=== PATIENT | female | born 1975 | race Caucasian/White ===

== ENCOUNTER 2016-10-03 06:15 | Emergency (ER) | payer BC, MEDICAID ==
[~2016-10-03] VITALS: Ht 152.4 cm; Wt 82.5 kg
[~2016-10-03 06:15] MED LIST: AMLO-147 PO; ATOR10TA65 PO; CARV6.2579 PO; ENAL10TA PO; FENO134C PO; HYDR-902 PO; METF-382 PO; OXYC-279 PO
[2016-10-03 06:25] VITALS: Ht 152.4 cm; Wt 82.5 kg
[2016-10-03] MEDS ORDERED: ALBU8.5H3 INH (06:53)
[2016-10-03] MEDS ORDERED: AZIT500T3 PO (06:53)
[2016-10-03] MEDS ORDERED: ACET500C5 PO (06:53)
--- NOTE | 2016-10-03 06:56 | ERD ---
ER Documentation Chief Complaint Date/Time DATE: 10/03/16 TIME: 06:55 Chief Complaint loss of voice and ear pain x1 wk, pink eye this morning HPI 40-year-old woman complains of bilateral earache, nasal congestion, rhinorrhea, cough 1 week. She has had no fevers or chills, no vomiting or diarrhea, no discharge from the ear, no hearing loss, no headache or neck pain. ROS All systems reviewed and are negative except as per history of present illness. Medications Home Meds Active Scripts Albuterol Sulfate* (Proair HFA*) 8.5 Gm Hfa.aer.ad, 2 PUFF INH Q6H Y for COUGH, #1 INHALER Prov:TERRELL RUFF MD 10/03/16 Acetaminophen* (Tylophen*) 500 Mg Capsule, 2 CAP PO Q8H Y for PAIN AND OR ELEVATED TEMP, #30 CAP Prov:TERRELL RUFF MD 10/03/16 Azithromycin* (Zithromax*) 500 Mg Tablet, 500 MG PO DAILY for 5 Days, TAB Prov:TERRELL RUFF MD 10/03/16 Hydrocodone/Acetaminophen ([place] 10-325 Tablet) 1 Each Tablet, 1 TAB PO Q6H Y for PAIN, #7 TAB Prov:SHANA MONTANEZ MD 07/27/16 Oxycodone HCl/Acetaminophen (Percocet 5-325 mg Tablet) 1 Each Tablet, 1 EACH PO TID for PAIN, #12 TAB Prov:TERRELL RUFF MD 04/27/16 Reported Medications Metformin Hcl* (Metformin Hcl*) 500 Mg Tablet, 500 MG PO WITH BREAKFAST DINNE, # 30 TAB 04/27/16 Fenofibrate, Micronized (Fenofibrate) 134 Mg Capsule, 134 MG PO DAILY, CAP 04/27/16 Atorvastatin Calcium (Atorvastatin Calcium) 10 Mg Tablet, 10 MG PO QHS, #30 TAB 04/27/16 Amlodipine Besylate* (Amlodipine Besylate*) 10 Mg Tablet, 10 MG PO DAILY, #30 TAB 04/27/16 Enalapril Maleate* (Enalapril Maleate*) 10 Mg Tablet, 10 MG PO DAILY, TAB 04/27/16 Carvedilol* (Carvedilol*) 6.25 Mg Tablet, 6.25 MG PO BID, #60 TAB 04/27/16 Allergies Allergies: Coded Allergies: Penicillins (Verified Allergy, Unknown, 04/27/16) ampicillin (Verified Allergy, Unknown, rash, 04/27/16) ibuprofen (Verified Allergy, Unknown, 04/27/16) Uncoded Allergies: FISH (Allergy, Unknown, 02/16/16) PMhx/Soc Hypertension History of Surgery: No Anesthesia Reaction: No Hx Neurological Disorder: No Hx Respiratory Disorders: No Hx Cardiac Disorders: Yes (HTN) Hx Psychiatric Problems: No Hx Miscellaneous Medical Probl: Yes (DM) Hx Alcohol Use: No Hx Substance Use: No Hx Tobacco Use: No Smoking Status: Never smoker FmHx Family History: No diabetes Physical Exam Vitals Vital Signs Date Time Temp Pulse Resp B/P Pulse Ox O2 Delivery O2 Flow Rate FiO2 10/03/16 06:25 97.8 104 19 199/121 100 Physical Exam GENERAL: Well-developed, well-nourished, well-hydrated, in no apparent distress , looks nontoxic in appearance HEENT: Moist mucous membranes, positive nasal congestion, pink conjunctiva, no cervical spine tenderness or step-off deformities, no goiter, no jaundice or icterus, extraocular movements intact without pain. No submandibular induration , and no pharyngeal erythema NEURO: Alert and oriented 3, cranial nerves II through XII intact bilaterally, pupils equal round reactive to light, no focal deficits or facial asymmetry, sensation intact distally Strength 5/5 in upper and lower extremities bilaterally CARDIAC: Regular rate and rhythm, no murmurs rubs or gallops LUNGS: Clear bilaterally no wheezing crackles or stridor ABDOMEN: Soft nontender, no guarding, no rigidity, no rebound, no psoas sign no obturator sign. Normoactive bowel sounds SKIN: Warm and dry to touch, no abrasions, contusions, or hematomas, no lacerations, no ecchymosis, no target lesions, and without ulcers EXTREMITIES: No clubbing cyanosis or edema, calves are bilaterally symmetrical, no Homans sign, no popliteal cord sign. Distal pulses equal and bilateral PSYCH: Normal affect without agitation or irritability Results 24 hrs Current Medications Medications (Trade) Dose Ordered Sig/Thuan Route PRN Reason Start Time Stop Time Status Last Admin Dose Admin Clonidine (Catapres) 0.1 mg ONCE ONCE PO 10/03/16 07:00 10/03/16 07:01 DC 10/03/16 06:57 Acetaminophen (Tylenol Tab) 650 mg ONCE ONCE PO 10/03/16 07:00 10/03/16 07:01 DC 10/03/16 06:57 Procedures/MDM I administered clonidine 0.1 mg p.o. for hypertension as well as Tylenol 650 mg p.o. for her symptoms. Differential diagnoses considered, included but not limited to acute coronary syndrome, pulmonary embolism, aortic dissection, abdominal aortic aneurysm, sepsis, stroke, meningitis, encephalitis, pneumonia, appendicitis, cholecystitis , bowel obstruction, pyelonephritis, nephrolithiasis, cystitis, as well as metabolic, hematologic, and electrolyte abnormalities. As well as abscess, cellulitis, fractures, and dislocations. Patient feels much better at this time, and vital signs are normal, symptoms have improved. I did give strict instructions to return to the ED if symptoms continue or worsen, patient will otherwise follow-up with primary care physician. Patient understood instructions and agreed to plan. Departure Diagnosis: Primary Impression: Bronchitis Condition: Good Patient Instructions: Bronchitis, Antiobiotic Treatment (Adult) TERRELL RUFF MD Oct 03, 2016 06:56
[2016-10-03] MEDS ORDERED: ACETAMINOPHEN 325 MG TAB PO ONE (07:00)
== END 2016-10-03 07:29 | disposition home or self-care (01) ==
LOC: E/R 06:15
DX: J20.9 Acute bronchitis, unspecified (principal); E11.9 Type 2 diabetes mellitus without complications; I10 Essential (primary) hypertension; Z79.84 Long term (current) use of oral hypoglycemic drugs
CPT/HCPCS: Z7502; Z7610; 99283

== ENCOUNTER 2017-02-26 23:43 | Emergency (ER) | payer OTHER, MEDICAID ==
[~2017-02-26] VITALS: Ht 154.9 cm; Wt 82.0 kg
[~2017-02-26 23:43] MED LIST changes: +ACET500C5 PO; +ALBU8.5H3 INH; +AZIT500T3 PO; -METF-382 PO; +METF500T4 PO
[2017-02-26 23:51] VITALS: Ht 154.9 cm; Wt 82.0 kg
[2017-02-27] MEDS ORDERED: morphine 4 MG/ML VIAL IV STA (00:13)
[2017-02-27] MEDS ORDERED: SOD CHLORIDE 0.9% 1,000 ML IV STA ×2 (00:13→02:32)
[2017-02-27] MEDS ORDERED: ONDANSETRON 4 MG INJ IV STA ×2 (00:13→02:32)
[2017-02-27 00:38] LABS: URINE BLOOD (Dip) POC Trace-intact (NEGATIVE)
[2017-02-27 00:51] LABS: ABNORMAL IP MESSAGE 1; BASOPHIL # 0.1 10^3/ul (0.0-0.1); BASOPHILS % 0.7 % (0.0-2.0); EOSINOPHILS # 0.1 10^3/ul (0.0-0.5); EOSINOPHILS % 1.2 % (0.0-7.0); HEMATOCRIT 43.2 % (37.0-47.0); HEMOGLOBIN 14.9 g/dl (12.0-16.0); LYMPHOCYTES # 5.3 10^3/ul (0.8-2.9); LYMPHOCYTES % 44.4 % (15.0-51.0); MEAN CORPUSCULAR HEMOGLOBIN 33.2 pg (29.0-33.0); MEAN CORPUSCULAR HGB CONC 34.5 g/dl (32.0-37.0); MEAN CORPUSCULAR VOLUME 96.2 fl (82.0-101.0); MEAN PLATELET VOLUME 9.7 fl (7.4-10.4); MONOCYTE # 0.8 10^3/ul (0.3-0.9); MONOCYTES % 6.4 % (0.0-11.0); NEUTROPHIL # 5.6 10^3/ul (1.6-7.5); NEUTROPHILS % 46.9 % (39.0-77.0); PLATELET COUNT 401 10^3/UL (140-415); RED BLOOD COUNT 4.49 10^6/ul (4.20-5.40); RED CELL DISTRIBUTION WIDTH 12.3 % (11.5-14.5); WHITE BLOOD COUNT 11.9 10^3/ul (4.8-10.8)
[2017-02-27 00:55] LABS: POSITIVE DIFF @See below
[2017-02-27 01:01] LABS: ADD UMIC YES; UR ASCORBIC ACID NEGATIVE (NEGATIVE); UR BACTERIA FEW /HPF (NONE SEEN); UR BILIRUBIN (Dip) NEGATIVE (NEGATIVE); UR BLOOD (Dip) NEGATIVE (NEGATIVE); UR CLARITY CLOUDY (CLEAR); UR COLOR YELLOW (YELLOW); UR GLUCOSE (Dip) 3+ mg/dL (NEGATIVE); UR KETONES (Dip) NEGATIVE (NEGATIVE); UR LEUKOCYTE ESTERASE (Dip) 3+ Leu/ul (NEGATIVE); UR NITRITE (Dip) NEGATIVE (NEGATIVE); UR NONSQUAMOUS EPITHELIAL CELL 1 /HPF (NONE SEEN); UR RBC 17 /HPF (0-5); UR SPECIFIC GRAVITY (Dip) 1.032 (1.003-1.030); UR SQUAMOUS EPITHELIAL CELL MANY /HPF (FEW); UR TOTAL PROTEIN (Dip) 2+ mg/dl (NEGATIVE); UR UROBILINOGEN (Dip) NEGATIVE (NEGATIVE)
[2017-02-27 01:18] LABS: ALBUMIN 4.9 g/dl (3.3-4.9); ALBUMIN/GLOBULIN RATIO 1.11; BILIRUBIN,INDIRECT 0.1 mg/dl (0-1.1); BILIRUBIN,TOTAL 0.1 mg/dl (0.2-1.3); CREATININE 0.57 mg/dl (0.44-1.00); POTASSIUM 4.3 mmol/L (3.5-5.1); TOTAL PROTEIN 9.3 g/dl (6.1-8.1)
--- NOTE | 2017-02-27 02:15 | RADRPT ---
PROCEDURE: US Abdomen. CLINICAL INDICATION: Abdominal Pain TECHNIQUE: Blank scale and color Doppler imaging of the right upper quadrant COMPARISON: None FINDINGS: The aorta and visualized inferior vena cava are unremarkable in appearance. The liver is enlarged, measuring 22.8 cm in length. The liver is diffusely echogenic suggesting hepatic steatosis. Hepatope nghia flow is seen in the main portal vein. A nonmobile 8 mm stone is seen in the neck of the gallblad jairo. No gallbladder wall thickening is seen but the kindergartners helper a positive sonographic Horton's sig n. No pericholecystic fluid was seen. No intra or extrahepatic ductal dilatation is seen. The comm on bile duct measures 2 mm in maximal dimension. The right kidney measures 13 cm. No hydronephrosis or renal calculi are seen. The pancreas is largely obscured by bowel gas.. No ascites is seen. IMPRESSION: Study is significantly limited by bowel gas and body habitus. Probable impacted stone in the neck of the gallbladder with positive Horton's sign. No definite gallbladder wall thickening, pericholecys tic fluid, or ductal dilatation. HIDA scan may be helpful to confirm acute cholecystitis. Hepatic steatosis. RPTAT: [facility] Physician Derek Date Time Electronically viewed and signed by Physician Derek on 02/27/2017 02:15 RAHAT/
[2017-02-27] MEDS ORDERED: HYDROmorphONE 1 MG/ML SYG IV STA (02:32)
--- NOTE | 2017-02-27 02:51 | ERD ---
ER Documentation Chief Complaint Date/Time DATE: 02/27/17 TIME: 02:46 Chief Complaint abdominal pain/vomiting x 1 day HPI This patient is a 41-year-old female who presents with abdominal pain with nausea and vomiting that began yesterday. She denies fever. She states the pain is worse after eating. She denies any dysuria, hematuria, or urinary frequency. Pain is 10 out of 10. She states she is currently on her menstrual period now. ROS All systems reviewed and are negative except as per history of present illness. Medications Home Meds Active Scripts Ondansetron (Ondansetron Odt) 4 Mg Tab.rapdis, 4 MG PO Q6H Y for NAUSEA AND/OR VOMITING, #20 TAB Prov:EMILIA URIOSTEGUI PA-C 02/27/17 Hydrocodone/Acetaminophen ([place] 10-325 Tablet) 1 Each Tablet, 1 TAB PO Q6H Y for PAIN, #20 TAB Prov:EMILIA URIOSTEGUI PA-C 02/27/17 Nitrofurantoin Monohyd Macrocr* (Macrobid*) 100 Mg Capsr, 100 MG PO BID for 7 Days, CAP Prov:EMILIA URIOSTEGUI PA-C 02/27/17 Albuterol Sulfate* (Proair HFA*) 8.5 Gm Hfa.aer.ad, 2 PUFF INH Q6H Y for COUGH, #1 INHALER Prov:TERRELL RUFF MD 10/03/16 Acetaminophen* (Tylophen*) 500 Mg Capsule, 2 CAP PO Q8H Y for PAIN AND OR ELEVATED TEMP, #30 CAP Prov:TERRELL RUFF MD 10/03/16 Azithromycin* (Zithromax*) 500 Mg Tablet, 500 MG PO DAILY for 5 Days, TAB Prov:TERRELL RUFF MD 10/03/16 Hydrocodone/Acetaminophen ([place] 10-325 Tablet) 1 Each Tablet, 1 TAB PO Q6H Y for PAIN, #7 TAB Prov:SHANA MONTANEZ MD 07/27/16 Oxycodone HCl/Acetaminophen (Percocet 5-325 mg Tablet) 1 Each Tablet, 1 EACH PO TID for PAIN, #12 TAB Prov:TERRELL RUFF MD 04/27/16 Reported Medications Metformin Hcl* (Metformin Hcl*) 500 Mg Tablet, 500 MG PO WITH BREAKFAST DINNE, # 30 TAB 04/27/16 Fenofibrate, Micronized (Fenofibrate) 134 Mg Capsule, 134 MG PO DAILY, CAP 04/27/16 Atorvastatin Calcium (Atorvastatin Calcium) 10 Mg Tablet, 10 MG PO QHS, #30 TAB 04/27/16 Amlodipine Besylate* (Amlodipine Besylate*) 10 Mg Tablet, 10 MG PO DAILY, #30 TAB 04/27/16 Enalapril Maleate* (Enalapril Maleate*) 10 Mg Tablet, 10 MG PO DAILY, TAB 04/27/16 Carvedilol* (Carvedilol*) 6.25 Mg Tablet, 6.25 MG PO BID, #60 TAB 04/27/16 Allergies Allergies: Coded Allergies: Penicillins (Verified Allergy, Unknown, 04/27/16) ampicillin (Verified Allergy, Unknown, rash, 04/27/16) ibuprofen (Verified Allergy, Unknown, 04/27/16) Uncoded Allergies: FISH (Allergy, Unknown, 02/16/16) PMhx/Soc History of Surgery: No Anesthesia Reaction: No Hx Neurological Disorder: No Hx Respiratory Disorders: No Hx Cardiac Disorders: Yes (HTN) Hx Psychiatric Problems: No Hx Miscellaneous Medical Probl: Yes (DM) Hx Alcohol Use: No Hx Substance Use: No Hx Tobacco Use: No Smoking Status: Never smoker FmHx Family History: diabetes Physical Exam Vitals Vital Signs Date Time Temp Pulse Resp B/P Pulse Ox O2 Delivery O2 Flow Rate FiO2 02/26/17 23:51 98.2 108 20 175/100 99 Physical Exam INITIAL VITAL SIGNS: Reviewed by me GENERAL: Awake, alert and oriented x 4, well appearing, nontoxic, speaking in full sentences. HEAD: Atraumatic NECK: Supple. No masses. Full range of motion. No meningismus. No midline tenderness. RESPIRATORY: Clear to auscultation bilaterally. Symmetric chest wall rise. No wheezing or rales. No accessory muscle use. CV: Regular rate and rhythm. No murmurs, rubs, or gallops. Equal pulses x 4. ABDOMEN: Soft, . Nontender. Positive [place]. Negative McBurneys point tenderness. No CVA tenderness bilaterally. No guarding. No rebound. EXTREMITIES: No clubbing or cyanosis. No edema. BACK: No midline tenderness to palpation. No step-offs. NEUROLOGIC: Normal mental status and speech. Face is symmetric. Moves all extremities equally. Motor and sensory distally intact. Normal coordination. Ambulates with a strong steady gait. Result Diagram: 02/27/17 0030 02/27/17 0030 Results 24 hrs Laboratory Tests Test 02/27/17 00:25 02/27/17 00:30 02/27/17 00:44 Urine Color YELLOW Urine Clarity CLOUDY Urine pH 7.0 Urine Specific [place] 1.032 Urine Ketones NEGATIVEmg/dL Urine Nitrite NEGATIVEmg/dL Urine Bilirubin NEGATIVEmg/dL Urine Urobilinogen NEGATIVEmg/dL Urine Leukocyte Esterase 3+Yesi/ul Urine Microscopic RBC 17/HPF Urine Microscopic WBC > 182/HPF Urine Squamous Epithelial Cells MANY/HPF Urine Bacteria FEW/HPF Urine Hemoglobin NEGATIVEmg/dL Urine Glucose 3+mg/dL Urine Total Protein 2+mg/dl White Blood Count 11.910^3/ul Red Blood Count 4.4910^6/ul Hemoglobin 14.9g/dl Hematocrit 43.2% Mean Corpuscular Volume 96.2fl Mean Corpuscular Hemoglobin 33.2pg Mean Corpuscular Hemoglobin Concent 34.5g/dl Red Cell Distribution Width 12.3% Platelet Count 11860^3/UL Mean Platelet Volume 9.7fl Neutrophils % 46.9% Lymphocytes % 44.4% Monocytes % 6.4% Eosinophils % 1.2% Basophils % 0.7% Nucleated Red Blood Cells % 0.0/100WBC Neutrophils # 5.610^3/ul Lymphocytes # 5.310^3/ul Monocytes # 0.810^3/ul Eosinophils # 0.110^3/ul Basophils # 0.110^3/ul Nucleated Red Blood Cells # 0.010^3/ul Sodium Level 143mmol/L Potassium Level 4.3mmol/L Chloride Level 100mmol/L Carbon Dioxide Level 24mmol/L Anion Gap 23 Blood Urea Nitrogen 10mg/dl Creatinine 0.57mg/dl Glucose Level 356mg/dl Calcium Level 10.0mg/dl Total Bilirubin 0.1mg/dl Direct Bilirubin 0.00mg/dl Indirect Bilirubin 0.1mg/dl Aspartate Amino Transf (AST/SGOT) 33IU/L Alanine Aminotransferase (ALT/SGPT) 43IU/L Alkaline Phosphatase 69IU/L Total Protein 9.3g/dl Albumin 4.9g/dl Globulin 4.40g/dl Albumin/Globulin Ratio 1.11 Lipase 360U/L Bedside Urine pH (LAB) 7.0 Bedside Urine Protein (LAB) 2+ Bedside Urine Glucose (UA) 0.50% Bedside Urine Ketones (LAB) Negative Bedside Urine Blood Trace-intact Bedside Urine Nitrite (LAB) Negative Bedside Urine Leukocyte Esterase (L 1+ Current Medications Medications (Trade) Dose Ordered Sig/Thuan Route PRN Reason Start Time Stop Time Status Last Admin Dose Admin Sodium Chloride (NS) 1,000 ml @ 1,000 mls/hr Q1H STAT IV 02/27/17 00:13 02/27/17 01:12 DC 02/27/17 00:50 Morphine Sulfate (morphine) 4 mg ONCE STAT IV 02/27/17 00:13 02/27/17 00:15 DC 02/27/17 00:49 Ondansetron HCl 4 mg 4 mg ONCE STAT IV 02/27/17 00:13 02/27/17 00:15 DC 02/27/17 00:49 Sodium Chloride (NS) 1,000 ml @ 1,000 mls/hr Q1H STAT IV 02/27/17 02:32 02/27/17 03:31 DC 02/27/17 02:39 Hydromorphone HCl (Dilaudid) 1 mg ONCE STAT IV 02/27/17 02:32 02/27/17 02:33 DC 02/27/17 02:40 Ondansetron HCl (Zofran Inj) 4 mg ONCE STAT IV 02/27/17 02:32 02/27/17 02:33 DC 02/27/17 02:39 IV Flush 10 ml 10 ml STK-MED ONCE .ROUTE 02/27/17 03:06 02/27/17 03:07 DC 02/27/17 03:27 Sodium Chloride (NS) 100 ml @ ud STK-MED ONCE .ROUTE 02/27/17 03:06 02/27/17 03:07 DC 02/27/17 03:27 Iohexol (Omnipaque 300mg/ ml) 150 ml STK-MED ONCE .ROUTE 02/27/17 03:06 02/27/17 03:07 DC 02/27/17 03:27 Procedures/MDM Patient presents with abdominal pain. Patient's blood pressure was elevated (> 120/80) but appears stable without evidence of hypertension emergency. The patient was counseled about the risks of hypertension and urged to pursue outpatient monitoring and therapy within a week with their primary care physician.Her blood pressure is elevated 175/100 and she is tachycardic at 108. She is afebrile. The differential diagnosis includes but is not limited to appendicitis, cholelithiasis, cholecystitis, pancreatitis, hepatitis, gastritis , peptic ulcer disease, bowel obstruction, diverticulitis, renal disease including stones, AAA, pyelonephritis, and others. Her labs have an elevated white blood cell count of 11.9. Glucose is elevated greater than 350 without any evidence of DKA. Gallbladder ultrasound showsStudy is significantly limited by bowel gas and body habitus. Probable impacted stone in the neck of the gallbladder with positive Horton's sign. No definite gallbladder wall thickening, pericholecystic fluid, or ductal dilatation. HIDA scan may be helpful to confirm acute cholecystitis. I reviewed this finding with Dr. ward who recommended I perform a CT scan of the abdomen and pelvis with IV contrast. CT scan showsNo definite acute abnormality. Enlarged liver with diffuse hepatic steatosis. 7 mm hyperdense lesion in the posterior segment right lobe of the liver. This could represent an area of focal fatty sparing or a hemangioma. Follow-up MRI with contrast in 3 months is suggested. This was reviewed with who explained patient is suitable for outpatient management. Patient was given prescription for pain medication, Zofran, and Macrobid for her urinary tract infection. She is also given copies of all her labs and radiology reports she can follow primary care. Patient counseled regarding my diagnostic impression and care plan. Prior to discharge all questions answered. Pt agrees with treatment plan and understands strict return precautions. Pt is instructed to follow up with primary care provider within 24- 48 hours. Precautionary instructions provided including instructions to return to the ER if not improving or for any worsening or changing symptoms or concerns. Departure Diagnosis: Primary Impression: Cystitis Additional Impressions: Biliary colic Hypertensive urgency Condition: Stable Patient Instructions: Possible Miscarriage (Threatened ) Additional Instructions: Llame al doctor MAANA y russel marquis KAUSHIK PARA DENTRO DE 2-3 HANSEN.Dgale a la secretaria que nosotros le instruimos hacer esta kaushik.Avise o llame si albright condicin se empeora antes de la kauhsik. Regresa aqui si peor o no mejor. EMILIA URIOSTEGUI PA-C Feb 27, 2017 02:51
[2017-02-27] MEDS ORDERED: SOD CHLORIDE 0.9% 100 ML ONE (03:06)
[2017-02-27] MEDS ORDERED: IOHEXOL 300MG/ML 150 ML BTL ONE (03:06)
--- NOTE | 2017-02-27 03:44 | RADRPT ---
PROCEDURE: CT Abdomen and pelvis with contrast CLINICAL INDICATION: Abdominal pain TECHNIQUE: Spiral CT images through the abdomen and pelvis without administration of oral and duri ng administration of 100 cc of Omnipaque-300 contrast material. Multiplanar reconstructions. The t otal exam CTDI equals 20.16 mGy and the total exam DLP equals 1253.6 mGy-cm. One or more of the foll owing dose reduction techniques were used: automated exposure control, adjustment of the mA and/or k V according to patient size, or use of iterative reconstruction technique. COMPARISON: None. FINDINGS: Slight atelectasis of the lung bases is seen. No pleural effusion is seen. . The aorta is normal in caliber. The liver is significantly enlarged, measuring 24 cm in length. The liver is mildly diffusely low i n attenuation consistent with hepatic steatosis. There is probable focal fatty sparing adjacent to the gallbladder. There is a 7 mm hyperdense lesion in the posterior segment of the right lobe of the liver (axial image 32). No other focal lesions are seen. . The spleen, adrenals, kidneys, and cast creas are unremarkable in appearance. No adenopathy or ascites is seen. There is no evidence for albert wel obstruction, free air, or abscess. The appendix is not identified but no pericecal inflammatory process is seen. The bladder, uterus, and adnexal regions are unremarkable in appearance. No bony abnormality is seen. IMPRESSION: No definite acute abnormality. Enlarged liver with diffuse hepatic steatosis. 7 mm hyperdense lesi on in the posterior segment right lobe of the liver. This could represent an area of focal fatty sp aring or a hemangioma. Follow-up MRI with contrast in 3 months is suggested. RPTAT: [facility] Physician Derek Date Time Electronically viewed and signed by Physician Derek on 02/27/2017 03:43 RAHAT/
[2017-02-27] MEDS ORDERED: ONDA4TAB14 PO (03:51)
[2017-02-27] MEDS ORDERED: NITR-58 PO (03:51)
[2017-02-27] MEDS ORDERED: HYDR-902 PO (03:51)
[2017-02-27 04:00] VITALS: BP 178/100; PULSE 98; RESP 20; TEMP 98.2
[2017-02-27 16:09] LABS: URINE BLOOD (Dip) POC Trace-intact (NEGATIVE)
== END 2017-02-27 04:05 | disposition home or self-care (01) ==
LOC: FTE 23:43
DX: N30.90 Cystitis, unspecified without hematuria (principal); K80.50 Calculus of bile duct without cholangitis or cholecystitis without obstruction; I16.0 Hypertensive urgency; I10 Essential (primary) hypertension; E11.9 Type 2 diabetes mellitus without complications; R11.2 Nausea with vomiting, unspecified
CPT/HCPCS: 36415; 74177; 76705; 80053; 81001; 83690; 85025; 96361; 96374; 96375; 96376; J1170; J2270; J2405; J7030; Q9967; Z7502; Z7610; 81003

== ENCOUNTER 2017-04-05 13:40 | Emergency (ER) | payer MEDICAID, OTHER ==
[~2017-04-05] VITALS: Ht 154.9 cm; Wt 83.0 kg
[~2017-04-05 13:40] MED LIST changes: +NITR-58 PO; +ONDA4TAB14 PO
[2017-04-05 13:48] VITALS: Ht 154.9 cm; Wt 83.0 kg
[2017-04-05] MEDS ORDERED: HYDROCODONE/APAP (5/325) TAB PO ONE (15:00)
--- NOTE | 2017-04-05 15:04 | ERD ---
ER Documentation Chief Complaint Date/Time DATE: 04/05/17 TIME: 14:59 Chief Complaint MOTHER A COUPLE OF DAYS AGO.FEELS DIZZY AND STRESSED HPI This a 41-year-old female who presents to the emergency department today with her for complaints of headache and heart palpitations for the past couple of days. States she has not slept for the past couple days. 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 States she has tried Tylenol and Motrin for her headache with no improvement in symptoms. States she is concerned because her blood pressure will not go down. Had some nausea but no vomiting. Denies any nausea currently. Denies any dizziness, blurred vision. ROS All systems reviewed and are negative except as per history of present illness. Medications Home Meds Active Scripts Ondansetron Hcl* (Zofran*) 4 Mg Tablet, 4 MG PO Q6H for NAUSEA AND/OR VOMITING, #30 TAB Prov:AICHA NELSON PA-C 04/05/17 Lorazepam* (Ativan*) 0.5 Mg Tablet, 0.5 MG PO Q8, #10 TAB Prov:AICHA NELSON PA-C 04/05/17 Hydrocodone/Acetaminophen ([place] 5-325 Tablet) 1 Each Tablet, 1 TAB PO Q6H Y for PAIN, #10 TAB Prov:AICHA NELSON PA-C 04/05/17 Ondansetron (Ondansetron Odt) 4 Mg Tab.rapdis, 4 MG PO Q6H Y for NAUSEA AND/OR VOMITING, #20 TAB Prov:EMILIA URIOSTEGUI PA-C 02/27/17 Hydrocodone/Acetaminophen ([place] 10-325 Tablet) 1 Each Tablet, 1 TAB PO Q6H Y for PAIN, #20 TAB Prov:EMILIA URIOSTEGUI PA-C 02/27/17 Nitrofurantoin Monohyd Macrocr* (Macrobid*) 100 Mg Capsr, 100 MG PO BID for 7 Days, CAP Prov:EMILIA URIOSTEGUI PA-C 02/27/17 Albuterol Sulfate* (Proair HFA*) 8.5 Gm Hfa.aer.ad, 2 PUFF INH Q6H Y for COUGH, #1 INHALER Prov:TERRELL RUFF MD 10/03/16 Acetaminophen* (Tylophen*) 500 Mg Capsule, 2 CAP PO Q8H Y for PAIN AND OR ELEVATED TEMP, #30 CAP Prov:TERRELL RUFF MD 10/03/16 Azithromycin* (Zithromax*) 500 Mg Tablet, 500 MG PO DAILY for 5 Days, TAB Prov:TERRELL RUFF MD 10/03/16 Hydrocodone/Acetaminophen ([place] 10-325 Tablet) 1 Each Tablet, 1 TAB PO Q6H Y for PAIN, #7 TAB Prov:SHANA MONTANEZ MD 07/27/16 Oxycodone HCl/Acetaminophen (Percocet 5-325 mg Tablet) 1 Each Tablet, 1 EACH PO TID for PAIN, #12 TAB Prov:TERRELL RUFF MD 04/27/16 Reported Medications Metformin Hcl* (Metformin Hcl*) 500 Mg Tablet, 500 MG PO WITH BREAKFAST DINNE, # 30 TAB 04/27/16 Fenofibrate, Micronized (Fenofibrate) 134 Mg Capsule, 134 MG PO DAILY, CAP 04/27/16 Atorvastatin Calcium (Atorvastatin Calcium) 10 Mg Tablet, 10 MG PO QHS, #30 TAB 04/27/16 Amlodipine Besylate* (Amlodipine Besylate*) 10 Mg Tablet, 10 MG PO DAILY, #30 TAB 04/27/16 Enalapril Maleate* (Enalapril Maleate*) 10 Mg Tablet, 10 MG PO DAILY, TAB 04/27/16 Carvedilol* (Carvedilol*) 6.25 Mg Tablet, 6.25 MG PO BID, #60 TAB 04/27/16 Allergies Allergies: Coded Allergies: Penicillins (Verified Allergy, Unknown, 04/27/16) ampicillin (Verified Allergy, Unknown, rash, 04/27/16) ibuprofen (Verified Allergy, Unknown, 04/27/16) Uncoded Allergies: FISH (Allergy, Unknown, 02/16/16) PMhx/Soc History of Surgery: No Anesthesia Reaction: No Hx Neurological Disorder: No Hx Respiratory Disorders: No Hx Cardiac Disorders: Yes (HTN) Hx Psychiatric Problems: No Hx Miscellaneous Medical Probl: Yes (DM) Hx Alcohol Use: No Hx Substance Use: No Hx Tobacco Use: No Smoking Status: Never smoker Physical Exam Vitals Vital Signs Date Time Temp Pulse Resp B/P Pulse Ox O2 Delivery O2 Flow Rate FiO2 04/05/17 15:56 98.9 99 18 167/112 100 Room Air 04/05/17 13:48 98.3 103 18 178/112 98 Physical Exam Const: tearful Head: Atraumatic Eyes: Normal Conjunctiva. PERRLA, EOM intact ENT: Normal External Ears, Nose and Mouth. Neck: Full range of motion..~ No meningismus. Resp: Clear to auscultation bilaterally Cardio: Regular rate and rhythm, no murmurs Abd: Soft, non tender, non distended. Normal bowel sounds Skin: No petechiae or rashes Back: No midline or flank tenderness Ext: No cyanosis, or edema Neur: Awake and alert cranial nerves II through XII intact. No gait ataxia. Psych: Normal Mood and Affect Results 24 hrs Current Medications Medications (Trade) Dose Ordered Sig/Thuan Route PRN Reason Start Time Stop Time Status Last Admin Dose Admin Acetaminophen/ Hydrocodone Bitart ([place] (5/325)) 1 tab ONCE ONCE PO 04/05/17 15:00 04/05/17 15:01 DC 04/05/17 15:01 Nicardipine HCl (Cardene) 30 mg ONCE ONCE PO 04/05/17 16:00 04/05/17 16:01 DC 04/05/17 16:18 Procedures/MDM This is a 41-year-old female presents emergency department today complaining of headache and heart palpitations for the past couple of days and inability to sleep. 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 He was complaining of a headache and elevated blood pressure. Her blood pressure was elevated at 178/112 here in the emergency department. Given Patient's complaints of adhesions I did obtain an EKG. Read and interpreted by Dr. Bowman. Rate [address] elevation. No QT prolongation. Sinus tachycardia. Low suspicion for acute [place], PE, pericarditis. Patient was given [place] for her headache. Blood pressure was rechecked and was 167/112. Patient was given p.o. Cardene here Patient reported feeling better after the [place] blood pressure medications. I do have low suspicion for end organ damage, hypertensive emergency.Patient describes the headache as a frontal headache and have low suspicion for acute hemorrhage, mass, abscess, meningitis. Do not feel she requires a head CT scan at this time. Blood pressure was rechecked and patient's blood pressure 155/104. Patient reported feeling better. Patient symptoms at this time is consistent with headache, elevated blood pressure and heart palpitations likely related to anxiety related symptoms secondary to the loss of her mother within the past week. Patient is given a prescription for short course of [place], Ativan and Zofran. Discussed the patient with Dr. Bowman and he is in agreement with the plan. Departure Diagnosis: Primary Impression: Headache Headache type: unspecified Headache chronicity pattern: episodic headache Intractability: not intractable Qualified Code: R51 - Nonintractable episodic headache, unspecified headache type Additional Impression: Palpitations Condition: AICHA Preston PA-C Apr 05, 2017 15:04
[2017-04-05] MEDS ORDERED: NICARDipine HCL 30 MG CAPSULE PO ONE (16:00)
[2017-04-05] MEDS ORDERED: HYDR-906 PO (17:14)
[2017-04-05] MEDS ORDERED: LORA-441 PO (17:15)
[2017-04-05] MEDS ORDERED: ONDA4TAB8 PO (17:17)
[2017-04-05 17:21] VITALS: BP 155/104; PULSE 96; RESP 18; TEMP 98.5
[2017-04-07] MEDS ORDERED: morphine 2 MG INJ IV PRN ×2 (14:00)
--- NOTE | 2017-04-07 14:27 | HP ---
Date/Time of Note Date/Time of Note DATE: 04/07/17 TIME: 13:53 Assessment/Plan VTE Prophylaxis VTE Prophylaxis Intervention: heparin Lines/Catheters IV Catheter Type (from Nrsg): Peripheral IV Central line still needed: No Urinary Cath still in place: No Assessment/Plan Assessment/Plan 41 yo F admitted for chest pain and hyperglycemia 1. Atypical chest pain r/o ACS - EKG does not show any acute changes. will repeat in the am - Will trend troponins, negative x1. if trends up will consult Cardiology - ECHO ordered - Doubt cardiac cause due to increase in stress secondary to loss of mother and health of family members - Mother was 62 when she from heart failure 2. Hyperosmolar hyperglycemia - Glucose at time of presentation was 446 - will start IV NSS 100cc/hr - will give novolog 10 units now and start accuchekcs and sliding scale with meals - Hold home dose of metformin at this time - A1c ordered. Pt unsure if drawn in the past - Consult to community nutrition educator at patients request - Will check UA for protein or ketones 3. Hypertension - restarted home medications and will increase dose of enalapril to 20mg - Will continue adjusting to keep SBP <140 4. pseudohyponatremia - secondary to hyperglycemia. Corrected for glucose- 139 5. DVT prophylaxis - Heparin 6. Diet - Carb controlled diet 7. Code Status - Full Code I spent >30 minutes with the patient discussing plan of care and answering all questions and concerns. HPI/ROS Admit Date/Time Admit Date/Time Apr at 1353 Hx of Present Illness 41 yo F with PMH of DM type 2 and HTN presented to ED after experiencing chest pain since this am. was at bedside. Patient states the pain has been persistent since this am, sharp in nature, located in sternal radiating to left side, 10/10 this am but 8/10 currently after pain medication given in the ED. Nothing makes it worse. Occurred at rest with associated nausea but denies any vomiting or shortness of breath. Does admit to a severe headache that began this am as well. Patient states she took all her antihypertensives this am. She has never experienced these symptoms in the past. Patient's mother 20 days ago from heart failure and father and both currently have cancer. Patient denies any anxiety but admits to stress. Troponin was negative x1. Patient denies any other family members with heart conditions. Patient admits to taking all her BP medications this am but SBP has been persistently in the 150s. Patient was also found to have a blood sugar in the 400s. States sugars are usually well controlled in the 100s without levels > 200. She took her medication this morning but was not feeling well and when she checked her glucose, was in the 400s. She denies polyuria, polydipsia, urinary symptoms, constipation, but has been experiencing diminished appetite. ROS ROS as per HPI. All other systems reviewed an are negative. Constitutional: fatigue, nausea, poor po, No febrile Eyes: no complaints ENT: No congestion, No discharge Respiratory: No cough, No shortness of breath, No sputum Cardiovascular: chest pain, lightheadedness, No palpitations Gastrointestinal: decreased appetite, nausea, No constipation, No diarrhea, No vomiting Genitourinary: no complaints Musculoskeletal: No bone/joint pain Skin: No bruising, No erythema, No skin lesions Neurologic: dizziness, headache, No focal-weakness, No syncope Endocrine: No polydypsia, No polyuria Lymphatic: no complaints Psychological: No anxiety, No confusion, No depression Immunologic: no complaints Past Medical History Medical History: diabetes, hypertension Past Surgical History Past Surgical Hx: noncontributory Family History Significant Family History: heart disease, cancer, diabetes, hypertension Social History Alcohol Use: none Smoking Status: Never smoker Drug Use: none Exam/Review of Systems Vital Signs Vitals Vital Signs Date Time Temp Pulse Resp B/P Pulse Ox O2 Delivery O2 Flow Rate FiO2 04/05/17 17:21 98.5 96 18 155/104 98 Room Air Exam Constitutional: alert, oriented, other (fatigued), well developed Psych: nl mood/affect Head: atraumatic, normocephalic Eyes: EOMI, PERRL Neck: non-tender, No jvd Respiratory: clear to auscultation, normal air movement, No crackles/rales, No wheezing Cardiovascular: nl pulses, regular rate and rhythm, No edema, No rub, No systolic murmur Gastrointestinal: nl liver, spleen, non-tender, soft, No distended, No rebound or guarding Genitourinary - Female: No CVA tenderness Musculoskeletal: No joint tenderness, No muscle weakness Extremities: No clubbing, No cyanosis, No edema Neurological: No confused, No focal weakness Skin: nl turgor Lymph: nl lymph nodes GUSTAVO MERAZ MD Apr 07, 2017 14:13
== END 2017-04-05 17:24 | disposition home or self-care (01) ==
LOC: FTE 13:40
DX: R51 Headache (principal); R00.2 Palpitations; I10 Essential (primary) hypertension; E11.9 Type 2 diabetes mellitus without complications; R11.0 Nausea; Z79.84 Long term (current) use of oral hypoglycemic drugs
CPT/HCPCS: 93005; Z7502; Z7610

== ENCOUNTER 2017-04-07 09:44 | Inpatient (IN) | payer OTHER ==
[~2017-04-07] VITALS: Ht 154.9 cm; Wt 78.3 kg
[~2017-04-07 09:44] MED LIST changes: +HYDR-906 PO; +LORA-441 PO; +ONDA4TAB8 PO
--- NOTE | 2017-04-07 10:31 | RADRPT ---
PROCEDURE: XR Chest AP portable CLINICAL INDICATION: Chest pain TECHNIQUE: An AP portable radiograph of the chest was submitted. COMPARISON: None. FINDINGS: Support Hardware: None Cardiovascular: The cardiovascular silhouette appears unremarkable. Lung Ortiz: The lung ortiz appear clear with no nodule, alveolar infiltrate, or interstitial promi nence evident. Pleural Spaces: No pneumothorax or pleural effusion is identified. Osseous Structures: The osseous structures appear intact. Soft Tissues: The soft tissues appear generous. IMPRESSION: Unremarkable portable chest. Physician Thor Date Time Electronically viewed and signed by Padmini Fernandez Physician on 04/07/2017 10:30 RH/
[2017-04-07 11:20] LABS: ANION GAP 17 (8-16); BLOOD UREA NITROGEN 11 mg/dl (7-20); CALCIUM 9.8 mg/dl (8.4-10.2); CARBON DIOXIDE 25 mmol/L (21-31); CHLORIDE 95 mmol/L (97-110); CREATININE 0.48 mg/dl (0.44-1.00); POTASSIUM 3.9 mmol/L (3.5-5.1); SODIUM 133 mmol/L (135-144)
[2017-04-07 11:21] LABS: CREATINE KINASE 31 IU/L (23-200)
[2017-04-07 11:24] LABS: GLUCOSE 446 mg/dl (70-220)
[2017-04-07 11:30] LABS: BASOPHIL # 0.1 10^3/ul (0.0-0.1); BASOPHILS % 0.4 % (0.0-2.0); EOSINOPHILS % 0.2 % (0.0-7.0); HEMOGLOBIN 14.3 g/dl (12.0-16.0); LYMPHOCYTES # 2.4 10^3/ul (0.8-2.9); LYMPHOCYTES % 20.3 % (15.0-51.0); MEAN CORPUSCULAR HEMOGLOBIN 33.9 pg (29.0-33.0); MEAN CORPUSCULAR HGB CONC 35.8 g/dl (32.0-37.0); MEAN CORPUSCULAR VOLUME 94.8 fl (82.0-101.0); MONOCYTE # 0.8 10^3/ul (0.3-0.9); MONOCYTES % 6.7 % (0.0-11.0); NEUTROPHILS % 72.1 % (39.0-77.0); PLATELET COUNT 380 10^3/UL (140-415); RED BLOOD COUNT 4.22 10^6/ul (4.20-5.40); RED CELL DISTRIBUTION WIDTH 12.7 % (11.5-14.5); WHITE BLOOD COUNT 11.9 10^3/ul (4.8-10.8)
[2017-04-07 11:36] LABS: TROPONIN-I < 0.012 ng/ml (0.00-0.12)
[2017-04-07 11:36] LABS: TROPONIN-I < 0.012 ng/ml (0.00-0.12)
[2017-04-07] MEDS ORDERED: METOPROLOL 25 MG TAB PO ONE (12:00)
[2017-04-07] MEDS ORDERED: ASPIRIN 325 MG TAB PO ONE (12:00)
--- NOTE | 2017-04-07 12:03 | ERA ---
ER Documentation Chief Complaint Date/Time DATE: 04/07/17 TIME: 12:01 Chief Complaint CHEST PAIN SINCE THIS MORNING. WITH BS OF 400 NO SOB NOTED. HPI 41 year old female presents to the emergency department complaining of chest pain. Patient states that this morning she had the acute onset of a non-provoked, nonspecific chest discomfort. The pain does not radiate. It is associated with shortness of breath and nausea. She denies palpitations. She denies diaphoresis. She has never had similar type pain and currently describes the pain is mild to moderate. ROS All systems reviewed and are negative except as per history of present illness. Medications Home Meds Active Scripts Ondansetron Hcl* (Zofran*) 4 Mg Tablet, 4 MG PO Q6H for NAUSEA AND/OR VOMITING, #30 TAB Prov:AICHA NELSON PA-C 04/05/17 Lorazepam* (Ativan*) 0.5 Mg Tablet, 0.5 MG PO Q8, #10 TAB Prov:AICHA NELSON PA-C 04/05/17 Hydrocodone/Acetaminophen ([place] 5-325 Tablet) 1 Each Tablet, 1 TAB PO Q6H Y for PAIN, #10 TAB Prov:AICHA NELSON PA-C 04/05/17 Ondansetron (Ondansetron Odt) 4 Mg Tab.rapdis, 4 MG PO Q6H Y for NAUSEA AND/OR VOMITING, #20 TAB Prov:EMILIA URIOSTEGUI PA-C 02/27/17 Hydrocodone/Acetaminophen ([place] 10-325 Tablet) 1 Each Tablet, 1 TAB PO Q6H Y for PAIN, #20 TAB Prov:EMILIA URIOSTEGUI PA-C 02/27/17 Nitrofurantoin Monohyd Macrocr* (Macrobid*) 100 Mg Capsr, 100 MG PO BID for 7 Days, CAP Prov:EMILIA URIOSTEGUI PA-C 02/27/17 Albuterol Sulfate* (Proair HFA*) 8.5 Gm Hfa.aer.ad, 2 PUFF INH Q6H Y for COUGH, #1 INHALER Prov:TERRELL RUFF MD 10/03/16 Acetaminophen* (Tylophen*) 500 Mg Capsule, 2 CAP PO Q8H Y for PAIN AND OR ELEVATED TEMP, #30 CAP Prov:TERRELL RUFF MD 10/03/16 Azithromycin* (Zithromax*) 500 Mg Tablet, 500 MG PO DAILY for 5 Days, TAB Prov:TERRELL RUFF MD 10/03/16 Hydrocodone/Acetaminophen ([place] 10-325 Tablet) 1 Each Tablet, 1 TAB PO Q6H Y for PAIN, #7 TAB Prov:SHANA MONTANEZ MD 07/27/16 Oxycodone HCl/Acetaminophen (Percocet 5-325 mg Tablet) 1 Each Tablet, 1 EACH PO TID for PAIN, #12 TAB Prov:TERRELL RUFF MD 04/27/16 Reported Medications Metformin Hcl* (Metformin Hcl*) 500 Mg Tablet, 500 MG PO WITH BREAKFAST DINNE, # 30 TAB 04/27/16 Fenofibrate, Micronized (Fenofibrate) 134 Mg Capsule, 134 MG PO DAILY, CAP 04/27/16 Atorvastatin Calcium (Atorvastatin Calcium) 10 Mg Tablet, 10 MG PO QHS, #30 TAB 04/27/16 Amlodipine Besylate* (Amlodipine Besylate*) 10 Mg Tablet, 10 MG PO DAILY, #30 TAB 04/27/16 Enalapril Maleate* (Enalapril Maleate*) 10 Mg Tablet, 10 MG PO DAILY, TAB 04/27/16 Carvedilol* (Carvedilol*) 6.25 Mg Tablet, 6.25 MG PO BID, #60 TAB 04/27/16 Allergies Allergies: Coded Allergies: Penicillins (Verified Allergy, Unknown, 04/27/16) ampicillin (Verified Allergy, Unknown, rash, 04/27/16) ibuprofen (Verified Allergy, Unknown, 04/27/16) Uncoded Allergies: FISH (Allergy, Unknown, 02/16/16) PMhx/Soc History of Surgery: No Anesthesia Reaction: No Hx Neurological Disorder: No Hx Respiratory Disorders: No Hx Cardiac Disorders: Yes (HTN) Hx Psychiatric Problems: No Hx Miscellaneous Medical Probl: Yes (DM) Hx Alcohol Use: No Hx Substance Use: No Hx Tobacco Use: No FmHx Family history of heart disease in her mother just recently within the last few weeks Physical Exam Vitals Vital Signs Date Time Temp Pulse Resp B/P Pulse Ox O2 Delivery O2 Flow Rate FiO2 04/07/17 11:47 98.4 88 20 156/123 98 04/07/17 09:54 98.4 89 20 158/112 98 Physical Exam GENERAL: The patient is well developed and appropriate for usual state of health in no apparent distress HEENT: Pupils equal, round, and reactive to light. EOMI. There is no scleral icterus. NECK: C-spine is soft and supple, there is no meningismus. There is no cervical lymphadenopathy. LUNGS: Clear to auscultation bilaterally. There are no rales, wheezes or rhonchi. HEART: Regular rate and rhythm, no murmurs, clicks, rubs or gallops. ABDOMEN: Soft, non-tender, non-distended. There are bowel sounds in all four quadrants. No rebound or guarding. EXTREMITIES: There is no peripheral cyanosis or edema. No focal swelling or erythema. NEURO: The patient moves all four extremities with 5/5 strength. Cranial nerves II - XII are intact. Normal gait. Alert and oriented SKIN: There is no apparent rash or petechiae. HEME/LYMPHATIC: There is no evidence of excessive bruising or lymphedema. PSYCHIATRIC: The patient does not appear anxious or depressed. Result Diagram: 04/07/17 1049 04/07/17 1053 Results 24 hrs Laboratory Tests Test 04/07/17 10:49 04/07/17 10:53 White Blood Count 11.910^3/ul Red Blood Count 4.2210^6/ul Hemoglobin 14.3g/dl Hematocrit 40.0% Mean Corpuscular Volume 94.8fl Mean Corpuscular Hemoglobin 33.9pg Mean Corpuscular Hemoglobin Concent 35.8g/dl Red Cell Distribution Width 12.7% Platelet Count 83242^3/UL Mean Platelet Volume 10.0fl Neutrophils % 72.1% Lymphocytes % 20.3% Monocytes % 6.7% Eosinophils % 0.2% Basophils % 0.4% Nucleated Red Blood Cells % 0.0/100WBC Neutrophils # (Manual) 8.610^3/ul Lymphocytes # 2.410^3/ul Monocytes # 0.810^3/ul Eosinophils # 0.010^3/ul Basophils # 0.110^3/ul Nucleated Red Blood Cells # 0.010^3/ul Creatine Kinase 31IU/L Creatine Kinase Index 1.6 Creatinine Kinase MB (Mass) 0.50ng/ml Troponin I < 0.012ng/ml < 0.012ng/ml Sodium Level 133mmol/L Potassium Level 3.9mmol/L Chloride Level 95mmol/L Carbon Dioxide Level 25mmol/L Anion Gap 17 Blood Urea Nitrogen 11mg/dl Creatinine 0.48mg/dl Glucose Level 446mg/dl Calcium Level 9.8mg/dl Current Medications Medications (Trade) Dose Ordered Sig/Thuan Route PRN Reason Start Time Stop Time Status Last Admin Dose Admin Aspirin (Aspirin) 325 mg ONCE ONCE PO 04/07/17 12:00 04/07/17 12:01 Metoprolol Tartrate (Lopressor) 25 mg ONCE ONCE PO 04/07/17 12:00 04/07/17 12:01 Procedures/MDM Patient was taken to a room, seen and evaluated. Comfort measures were initiated. Diagnostic tests were ordered and reviewed. 3 LEAD RHYTHM STRIP: Normal sinus rhythm without ectopy EK lead EKG reviewed by myself: Normal Sinus Rhythm Normal [place] and intervals Nonspecific ST and T-wave changes without ST elevation Impression: Nonspecific EKG RADIOLOGY: reviewed with the radiologist CONSULTATION: hospitalist was notified for admission REEVALUATION: Patient remained comfortable MEDICAL DECISION MAKING: Patient presents with chest pain of uncertain etiology. Differential diagnosis considered includes acute myocardial infarction , pulmonary embolism, as well as vascular and pulmonary concerns. I have reviewed the patients clinical risk factors, EKG, lab studies and imaging. At this time, given the patient's diabetes that is poorly controlled, her high blood pressure, her family history, she has multiple risk factors and will be admitted for further observation to rule out myocardial infarction at this time. Departure Diagnosis: Primary Impression: Chest pain Condition: TANNA Chicas Apr 07, 2017 12:03
[2017-04-07] MEDS ORDERED: NITROGLYCERIN (SL) 0.4 MG TAB SL PRN (13:30)
[2017-04-07] MEDS ORDERED: NACL 0.9% 3 ML SYG IV SCH (13:30)
[2017-04-07] MEDS ORDERED: ONDANSETRON 4 MG INJ IV PRN (13:30)
[2017-04-07] MEDS ORDERED: INSULIN ASPART [NOVOLOG] 3 ML PEN SC ONE (13:30)
[2017-04-07 13:47] VITALS: TEMP 98.4
[2017-04-07] MEDS ORDERED: GLUCAGON 1 MG INJ IM PRN (14:00)
[2017-04-07] MEDS ORDERED: GLUCOSE GEL 15 GRAM TUBE BUCCAL PRN (14:00)
[2017-04-07] MEDS ORDERED: GLUCOSE GEL 15 GRAM TUBE PO PRN ×2 (14:00)
[2017-04-07] MEDS ORDERED: DEXTROSE 50% 50 ML SYRINGE IV PRN ×2 (14:00)
[2017-04-07] MEDS: SOD CHLORIDE 0.9% 1,000 ML IV SCH ×2 (14:08→22:25)
[2017-04-07] MEDS: HEPARIN 5,000 UNIT/0.5 ML VIAL SC SCH ×2 (14:16→22:30)
[2017-04-07] MEDS: ACCU-CHEK XX SCH ×3 (14:16→21:01)
[2017-04-07] MEDS ORDERED: morphine 4 MG/ML VIAL IV STA (14:32)
[2017-04-07] MEDS ORDERED: ONDANSETRON 4 MG INJ IV STA (14:32)
[2017-04-07 15:35] VITALS: Ht 154.9 cm; Wt 78.3 kg
[2017-04-07 15:38] VITALS: BP 150/105; PULSE 83; RESP 18
[2017-04-07 16:00] VITALS: PULSE 83
[2017-04-07] MEDS: ACETAMINOPHEN 325 MG TAB PO PRN ×2 (16:03→22:24)
[2017-04-07] MEDS: INSULIN ASPART [NOVOLOG] 3 ML PEN SC SCH ×3 (18:03→21:01)
[2017-04-07 19:13] LABS: CREATINE KINASE 23 IU/L (23-200)
[2017-04-07 19:41] LABS: CK-MB < 0.22 ng/ml (0.0-2.4); TROPONIN-I < 0.012 ng/ml (0.00-0.12)
[2017-04-07 20:24] VITALS: PULSE 100
[2017-04-07 20:46] VITALS: BP 162/112; RESP 18
[2017-04-07] MEDS ORDERED: ATORVASTATIN 10 MG TAB PO SCH (21:00)
[2017-04-07 22:48] LABS: CREATINE KINASE 33 IU/L (23-200)
[2017-04-07 23:01] LABS: CK-MB 0.23 ng/ml (0.0-2.4)
[2017-04-07 23:07] LABS: TROPONIN-I < 0.012 ng/ml (0.00-0.12)
[2017-04-07] MEDS ORDERED: ZOLPIDEM 5 MG TAB PO ONE (23:30)
[2017-04-08] VITALS (9 sets, daily range): BP systolic 128–142; BP diastolic 80–100; PULSE 79–85; RESP 18–20
[2017-04-08] MEDS: HEPARIN 5,000 UNIT/0.5 ML VIAL SC SCH ×2 (05:58→14:00)
[2017-04-08 07:59] LABS: BASOPHILS % 0.4 % (0.0-2.0); EOSINOPHILS # 0.1 10^3/ul (0.0-0.5); EOSINOPHILS % 0.8 % (0.0-7.0); HEMATOCRIT 38.9 % (37.0-47.0); HEMOGLOBIN 13.2 g/dl (12.0-16.0); LYMPHOCYTES # 3.4 10^3/ul (0.8-2.9); LYMPHOCYTES % 35.2 % (15.0-51.0); MEAN CORPUSCULAR HGB CONC 33.9 g/dl (32.0-37.0); MEAN CORPUSCULAR VOLUME 97.3 fl (82.0-101.0); MEAN PLATELET VOLUME 9.9 fl (7.4-10.4); MONOCYTE # 0.8 10^3/ul (0.3-0.9); MONOCYTES % 8.1 % (0.0-11.0); NEUTROPHILS % 55.2 % (39.0-77.0); PLATELET COUNT 335 10^3/UL (140-415); WHITE BLOOD COUNT 9.7 10^3/ul (4.8-10.8)
[2017-04-08] MEDS ORDERED: INSULIN GLARGINE [LANtus] 3 ML PEN SC SCH (08:00)
[2017-04-08] MEDS: ACETAMINOPHEN 325 MG TAB PO PRN (08:08)
[2017-04-08] MEDS: INSULIN ASPART [NOVOLOG] 3 ML PEN SC SCH ×5 (08:19→17:54)
[2017-04-08 08:32] LABS: CALCIUM 8.9 mg/dl (8.4-10.2); CREATININE 0.47 mg/dl (0.44-1.00); MAGNESIUM 1.6 mg/dl (1.7-2.5); POTASSIUM 3.8 mmol/L (3.5-5.1)
[2017-04-08] MEDS ORDERED: ENALAPRIL 20 MG TAB PO SCH ×2 (09:00→21:00)
[2017-04-08] MEDS ORDERED: AMLODIPINE 10 MG TAB PO SCH (09:00)
[2017-04-08] MEDS: SOD CHLORIDE 0.9% 1,000 ML IV SCH ×2 (09:21→10:03)
--- NOTE | 2017-04-08 10:00 | PN ---
Date/Time of Note Date/Time of Note DATE: 04/08/17 TIME: 10:00 Assessment/Plan Lines/Catheters IV Catheter Type (from Nrs): Peripheral IV Urinary Cath still in place: No Exam/Review of Systems Vital Signs Vitals Vital Signs Date Time Temp Pulse Resp B/P Pulse Ox O2 Delivery O2 Flow Rate FiO2 04/08/17 08:26 79 04/08/17 08:04 98.0 20 142/100 98 04/07/17 15:38 Room Air Results Result Diagram: 04/08/17 0718 04/08/17 0721 Results 24 hrs Laboratory Tests Test 04/07/17 10:49 04/07/17 10:53 04/07/17 14:09 04/07/17 17:13 White Blood Count 11.9 H Red Blood Count 4.22 Hemoglobin 14.3 Hematocrit 40.0 Mean Corpuscular Volume 94.8 Mean Corpuscular Hemoglobin 33.9 H Mean Corpuscular Hemoglobin Concent 35.8 Red Cell Distribution Width 12.7 Platelet Count 380 Mean Platelet Volume 10.0 Neutrophils % 72.1 Lymphocytes % 20.3 Monocytes % 6.7 Eosinophils % 0.2 Basophils % 0.4 Nucleated Red Blood Cells % 0.0 Neutrophils # (Manual) 8.6 H Lymphocytes # 2.4 Monocytes # 0.8 Eosinophils # 0.0 Basophils # 0.1 Nucleated Red Blood Cells # 0.0 Hemoglobin A1c 10.3 H Creatine Kinase 31 23 Creatine Kinase Index 1.6 1.0 Creatinine Kinase MB (Mass) 0.50 < 0.22 Troponin I < 0.012 < 0.012 < 0.012 Triglycerides Level 352 H Cholesterol Level 304 H LDL Cholesterol, Calculated 184 HDL Cholesterol 50 Cholesterol/HDL Ratio 6.0 Thyroid Stimulating Hormone (TSH) 0.384 L Sodium Level 133 L Potassium Level 3.9 Chloride Level 95 L Carbon Dioxide Level 25 Anion Gap 17 H Blood Urea Nitrogen 11 Creatinine 0.48 Glucose Level 446 *H Calcium Level 9.8 Bedside Glucose 337 H Test 04/07/17 20:50 04/07/17 21:52 04/08/17 01:34 04/08/17 07:18 Bedside Glucose 241 H 291 H Creatine Kinase 33 Creatine Kinase Index 0.7 Creatinine Kinase MB (Mass) 0.23 Troponin I < 0.012 White Blood Count 9.7 Red Blood Count 4.00 L Hemoglobin 13.2 Hematocrit 38.9 Mean Corpuscular Volume 97.3 Mean Corpuscular Hemoglobin 33.0 Mean Corpuscular Hemoglobin Concent 33.9 Red Cell Distribution Width 13.0 Platelet Count 335 Mean Platelet Volume 9.9 Neutrophils % 55.2 Lymphocytes % 35.2 Monocytes % 8.1 Eosinophils % 0.8 Basophils % 0.4 Nucleated Red Blood Cells % 0.0 Neutrophils # (Manual) 5.4 Lymphocytes # 3.4 H Monocytes # 0.8 Eosinophils # 0.1 Basophils # 0.0 Nucleated Red Blood Cells # 0.0 Test 04/08/17 07:21 04/08/17 08:02 Sodium Level 134 L Potassium Level 3.8 Chloride Level 103 Carbon Dioxide Level 26 Anion Gap 9 # Blood Urea Nitrogen 11 Creatinine 0.47 Glucose Level 287 #H Calcium Level 8.9 Magnesium Level 1.6 L Bedside Glucose 270 H Medications Medications Current Medications Sodium Chloride (NS) 1,000 ml @ 100 mls/hr Q10H IV Last administered on 22:25; Admin Dose 100 MLS/HR; Start 04/07/17 at 13:21 Ondansetron HCl (Zofran Inj) 4 mg Q6H PRN IV NAUSEA AND/OR VOMITING; Start 04/07 at 13:30 Nitroglycerin (Nitroglycerin (Sl Tab) 0.4 Mg) 1 tab Q5M PRN SL CHEST PAIN; Start 04/07/17 at 13:30 Acetaminophen (Tylenol Tab) 650 mg Q6H PRN PO PAIN LEVEL 1-3 OR FEVER Last administered on 04/08/17 08:08; Admin Dose 650 MG; Start 04/07/17 at 13:30 Heparin Sodium (Porcine) (Heparin (5000 Units/0.5 ml)) 5,000 unit Q8 SC Last administered on 04/07/17 22:30; Admin Dose 5,000 UNIT; Start 04/07/17 at 14:00 Amlodipine Besylate (Norvasc) 10 mg DAILY PO Last administered on 04/08/17 08: 08; Admin Dose 10 MG; Start 04/08/17 at 09:00 Atorvastatin Calcium (Lipitor) 10 mg QHS PO Last administered on 04/07/17 20:53 ; Admin Dose 10 MG; Start 04/07/17 at 21:00 Enalapril Maleate (Vasotec) 20 mg DAILY PO Last administered on 04/08/17 08:08 ; Admin Dose 20 MG; Start 04/08/17 at 09:00 Insulin Glargine (Lantus) 13 unit DAILY@08 SC Last administered on 04/08/17 08: 19; Admin Dose 13 UNIT; Start 04/08/17 at 08:00 Miscellaneous Information 1 ea NOTE XX ; Start 04/07/17 at 14:00 Glucose (Glutose) 15 gm Q15M PRN PO DECREASED GLUCOSE; Start 04/07/17 at 14:00 Glucose (Glutose) 22.5 gm Q15M PRN PO DECREASED GLUCOSE; Start 04/07/17 at 14:00 Dextrose (D50w Syringe) 25 ml Q15M PRN IV DECREASED GLUCOSE; Start 04/07/17 at 14:00 Dextrose (D50w Syringe) 50 ml Q15M PRN IV DECREASED GLUCOSE; Start 04/07/17 at 14:00 Glucagon (Glucagen) 1 mg Q15M PRN IM DECREASED GLUCOSE; Start 04/07/17 at 14:00 Glucose (Glutose) 15 gm Q15M PRN BUCCAL DECREASED GLUCOSE; Start 04/07/17 at 14: 00 Carvedilol (Coreg) 12.5 mg BID PO Last administered on 04/08/17 08:07; Admin Dose 12.5 MG; Start 04/07/17 at 21:00 GUSTAVO MERAZ MD Apr 08, 2017 10:00
[2017-04-08] MEDS: ACCU-CHEK XX SCH ×2 (10:03→14:35)
--- NOTE | 2017-04-08 10:04 | PN ---
Date/Time of Note Date/Time of Note DATE: 04/08/17 TIME: 09:58 Assessment/Plan VTE Prophylaxis VTE Prophylaxis Intervention: heparin Lines/Catheters IV Catheter Type (from Nrsg): Peripheral IV Urinary Cath still in place: No Assessment/Plan Assessment/Plan 1. Uncontrolled DM type 2 - head stock transfer clerk recommendations appreciated - Endocrinology consult placed at request of patient - Discussed with patient that she will need to be started on an Insulin regime since her A1c is 10.3 - Will increase Lantus to 16 units and Novolog to 5 units with meals - Goal to keep am sugar <140 and mealtime sugar <180 2. Atypical chest pain- resolved - EKG does not show any acute change - Will trend troponins, negative x1. if trends up will consult Cardiology - ECHO showed stage 1 diastolic dysfunction 3. Hypertension - currently stable - will need to adjust as needed and possible add a diuretic 4. pseudohyponatremia - secondary to hyperglycemia 5. DVT prophylaxis - Heparin 6. Diet - Carb controlled diet 7. Code Status - Full Code Subjective 24 Hr Interval Summary Free Text/Dictation Patient seen and examined. Still complaining of a severe headache and feels like "head is going to explode." Denies any nausea, vomiting, dizziness, LOC, or abdominal issues. No longer experiencing any chest pain, shortness of breath , or palpitations. Exam/Review of Systems Vital Signs Vitals Vital Signs Date Time Temp Pulse Resp B/P Pulse Ox O2 Delivery O2 Flow Rate FiO2 04/08/17 08:26 79 04/08/17 08:04 98.0 20 142/100 98 04/07/17 15:38 Room Air Exam General: NAD, awake and alert CVS: regular rate and rhythm. no murmurs Lungs: CTA b/l. no wheezes or rhonchi Abd: soft, NT, ND, no rebound or guarding Ext: no edema, cyanosis, or clubbing Results Result Diagram: 04/08/17 0718 04/08/17 0721 Results 24 hrs Laboratory Tests Test 04/07/17 10:49 04/07/17 10:53 04/07/17 14:09 04/07/17 17:13 White Blood Count 11.9 H Red Blood Count 4.22 Hemoglobin 14.3 Hematocrit 40.0 Mean Corpuscular Volume 94.8 Mean Corpuscular Hemoglobin 33.9 H Mean Corpuscular Hemoglobin Concent 35.8 Red Cell Distribution Width 12.7 Platelet Count 380 Mean Platelet Volume 10.0 Neutrophils % 72.1 Lymphocytes % 20.3 Monocytes % 6.7 Eosinophils % 0.2 Basophils % 0.4 Nucleated Red Blood Cells % 0.0 Neutrophils # (Manual) 8.6 H Lymphocytes # 2.4 Monocytes # 0.8 Eosinophils # 0.0 Basophils # 0.1 Nucleated Red Blood Cells # 0.0 Hemoglobin A1c 10.3 H Creatine Kinase 31 23 Creatine Kinase Index 1.6 1.0 Creatinine Kinase MB (Mass) 0.50 < 0.22 Troponin I < 0.012 < 0.012 < 0.012 Triglycerides Level 352 H Cholesterol Level 304 H LDL Cholesterol, Calculated 184 HDL Cholesterol 50 Cholesterol/HDL Ratio 6.0 Thyroid Stimulating Hormone (TSH) 0.384 L Sodium Level 133 L Potassium Level 3.9 Chloride Level 95 L Carbon Dioxide Level 25 Anion Gap 17 H Blood Urea Nitrogen 11 Creatinine 0.48 Glucose Level 446 *H Calcium Level 9.8 Bedside Glucose 337 H Test 04/07/17 20:50 04/07/17 21:52 04/08/17 01:34 04/08/17 07:18 Bedside Glucose 241 H 291 H Creatine Kinase 33 Creatine Kinase Index 0.7 Creatinine Kinase MB (Mass) 0.23 Troponin I < 0.012 White Blood Count 9.7 Red Blood Count 4.00 L Hemoglobin 13.2 Hematocrit 38.9 Mean Corpuscular Volume 97.3 Mean Corpuscular Hemoglobin 33.0 Mean Corpuscular Hemoglobin Concent 33.9 Red Cell Distribution Width 13.0 Platelet Count 335 Mean Platelet Volume 9.9 Neutrophils % 55.2 Lymphocytes % 35.2 Monocytes % 8.1 Eosinophils % 0.8 Basophils % 0.4 Nucleated Red Blood Cells % 0.0 Neutrophils # (Manual) 5.4 Lymphocytes # 3.4 H Monocytes # 0.8 Eosinophils # 0.1 Basophils # 0.0 Nucleated Red Blood Cells # 0.0 Test 04/08/17 07:21 04/08/17 08:02 Sodium Level 134 L Potassium Level 3.8 Chloride Level 103 Carbon Dioxide Level 26 Anion Gap 9 # Blood Urea Nitrogen 11 Creatinine 0.47 Glucose Level 287 #H Calcium Level 8.9 Magnesium Level 1.6 L Bedside Glucose 270 H Medications Medications Current Medications Sodium Chloride (NS) 1,000 ml @ 100 mls/hr Q10H IV Last administered on 22:25; Admin Dose 100 MLS/HR; Start 04/07/17 at 13:21 Ondansetron HCl (Zofran Inj) 4 mg Q6H PRN IV NAUSEA AND/OR VOMITING; Start 04/07 at 13:30 Nitroglycerin (Nitroglycerin (Sl Tab) 0.4 Mg) 1 tab Q5M PRN SL CHEST PAIN; Start 04/07/17 at 13:30 Acetaminophen (Tylenol Tab) 650 mg Q6H PRN PO PAIN LEVEL 1-3 OR FEVER Last administered on 04/08/17 08:08; Admin Dose 650 MG; Start 04/07/17 at 13:30 Heparin Sodium (Porcine) (Heparin (5000 Units/0.5 ml)) 5,000 unit Q8 SC Last administered on 04/07/17 22:30; Admin Dose 5,000 UNIT; Start 04/07/17 at 14:00 Amlodipine Besylate (Norvasc) 10 mg DAILY PO Last administered on 04/08/17 08: 08; Admin Dose 10 MG; Start 04/08/17 at 09:00 Atorvastatin Calcium (Lipitor) 10 mg QHS PO Last administered on 04/07/17 20:53 ; Admin Dose 10 MG; Start 04/07/17 at 21:00 Enalapril Maleate (Vasotec) 20 mg DAILY PO Last administered on 04/08/17 08:08 ; Admin Dose 20 MG; Start 04/08/17 at 09:00 Insulin Glargine (Lantus) 13 unit DAILY@08 SC Last administered on 04/08/17 08: 19; Admin Dose 13 UNIT; Start 04/08/17 at 08:00 Miscellaneous Information 1 ea NOTE XX ; Start 04/07/17 at 14:00 Glucose (Glutose) 15 gm Q15M PRN PO DECREASED GLUCOSE; Start 04/07/17 at 14:00 Glucose (Glutose) 22.5 gm Q15M PRN PO DECREASED GLUCOSE; Start 04/07/17 at 14:00 Dextrose (D50w Syringe) 25 ml Q15M PRN IV DECREASED GLUCOSE; Start 04/07/17 at 14:00 Dextrose (D50w Syringe) 50 ml Q15M PRN IV DECREASED GLUCOSE; Start 04/07/17 at 14:00 Glucagon (Glucagen) 1 mg Q15M PRN IM DECREASED GLUCOSE; Start 04/07/17 at 14:00 Glucose (Glutose) 15 gm Q15M PRN BUCCAL DECREASED GLUCOSE; Start 04/07/17 at 14: 00 Carvedilol (Coreg) 12.5 mg BID PO Last administered on 04/08/17t 08:07; Admin Dose 12.5 MG; Start 04/07/17 at 21:00 GUSTAVO MERAZ MD Apr 08, 2017 10:04
[2017-04-08] MEDS ORDERED: MAGNESIUM SULFATE 2 GM/50 ML 50 ML IVPB ONE (10:30)
[2017-04-08] MEDS ORDERED: ACET/BUTAL/CAFF TAB PO PRN (11:00)
--- NOTE | 2017-04-08 13:11 | RADRPT ---
Echocardiogram Report Patient Name: ZACK ROCHE Gender: Female Date: 1975 Study Date: 08-Apr-2017 Assistant Corporate Secretary: Mary Boss [facility] Location: 504 Ref. Physician: GUSTAVO MERAZ Quality: Good Procedures: Transthoracic echocardiogram with complete 2D, M-Mode, and doppler examination. Indications: Chest Pain. h/o DM. 2D/M Mode Doppler Measurement Value Normal Ranges Measurement Value Normal Ranges LVIDd 2D 3.5 3.5 - 5.6 cm AV Peak Jonatan 1.9 m/sec LVIDs 2D 2.4 2.1 - 4.1 cm AV Peak PG 14.7 mmHg LVPWd 2D 1.2 0.6 - 1.1 cm LVOT Peak Jonatan 1.0 m/sec IVSd 2D 1.3 0.6 - 1.1 cm LVOT Peak PG 3.8 mmHg AoR Diam 2D 2.6 2.0 - 3.7 cm MV E Peak Jonatan 0.9 m/sec EDV 2D 51.3 cm3 MV A Peak Jonatan 0.9 m/sec ESV 2D 14.4 cm3 MV E/A 1.0 LA Dimen 2D 3.0 2.3 - 4.0 cm MV Decel Time 208 msec MV Decel Teller 4 MV E/A 1.0 TR Peak Jonatan 1.2 m/sec TR Peak PG 6.0 mmHg RVSP 9.0 mmHg Findings Left Ventricle: Normal left ventricular systolic function. Normal left ventricular cavity size. Mild concentric left ventricular hypertrophy. Ejection fraction is visually estimated at 65 %. Tissue Doppler/Mitral Doppler indices are consistent with impaired relaxation (Stage I diastolic dysfunction). Right Ventricle: Normal right ventricular size. Normal right ventricular systolic function. Left Atrium: The left atrium is normal in size. Right Atrium: The right atrium is normal in size. Mitral Valve: Normal appearance and function of the mitral valve with trace physiologic regurgitation. Aortic Valve: Aortic sclerosis without stenosis. No aortic regurgitation. Tricuspid Valve: Normal appearance and function of the tricuspid valve with trace physiologic regurgitation. Pulmonic Valve: Normal pulmonic valve appearance. Pericardium: Normal pericardium with no significant pericardial effusion. Aorta: Normal aortic root. IVC: Normal size and normal respiratory collapse consistent with normal right atrial pressure. Conclusions 1.Normal left ventricular systolic function. Normal left ventricular cavity size. Mild concentric left ventricular hypertrophy. Ejection fraction is visually estimated at 65 %. Tissue Doppler/Mitral Doppler indices are consistent with impaired relaxation (Stage I diastolic dysfunction). 2.Normal right ventricular size. Normal right ventricular systolic function. 3.The left atrium is normal in size. 4.The right atrium is normal in size. 5.No significant valvular stenosis or regurgitation seen. 6.Normal pericardium with no significant pericardial effusion. Electronically Signed By: Luis Coronado 08-Apr-2017 13:09:57 -0700 Patient Name: ZACK ROCHE Study Date: 08-Apr-[id number]
[2017-04-08] MEDS ORDERED: metFORMIN 500 MG TAB PO SCH (17:55)
[2017-04-08] MEDS ORDERED: INSULIN ASPART [NOVOLOG] 3 ML PEN SC SCH (17:55)
[2017-04-08] MEDS ORDERED: INSULIN GLARGINE [LANtus] 3 ML PEN SC ONE (18:00)
--- NOTE | 2017-04-08 18:06 | CONS ---
Date/Time of Note Date/Time of Note DATE: 04/08/17 TIME: 17:52 Assessment/Plan Assessment/Plan Problems: (1) Cholelithiasis Status: Chronic Comment: Exact status of her biliary disease is unclear at this time. Please see the ultrasound report from her 1 of her recent emergency room visits. I will go ahead and get a HIDA scan and probably she will also need an MRCP to be determined. Thing is caused her to go out of control in the recent past and I am concerned about a chronic inflammatory issue in the gallbladder fossa. Other details based upon workup Qualifiers: Qualified Code: K80.70 - Calculus of gallbladder and bile duct without cholecystitis or obstruction (2) Hepatic steatosis Status: Chronic Comment: Noted on prior ultrasound. Further evaluation pending (3) Hypertension associated with diabetes Status: Chronic Comment: Her blood pressure is rather elevated. I concur with increasing the beta-blockade I would also push up on the kannan inhibitors. The amlodipine would be a third level choice (4) Obesity (BMI 30.0-34.9) Status: Chronic Comment: Counseled; calorie restriction diet (5) Diabetes mellitus type 2 in obese Status: Chronic Comment: This time her blood sugar control is not adequate. She will be on an insulin-based protocol in combination with her oral agents until we make sure there is not something else such as infection driving this. I do not believe she is suffering from a hypercortisolemia state (6) Mixed hyperlipidemia due to type 2 diabetes mellitus Comment: Current recommendations in a diabetic with high cholesterol are actually use a more aggressive dose of the statin therapy. I will push the dosage up toward what is the current [employer] cardiology recommendations. In addition to the hypertriglyceridemia will go ahead and use fish oil to bring this down. Consultation Date/Type/Reason Admit Date/Time Apr 07, 2017 at 12:06 Date of Consultation: Apr 08, 2017 Type of Consultation: Endocrinology Reason for Consultation Diabetes mellitus type 2 out of control; hypertension; mixed hyperlipidemia; cholelithiasis with cholecystitis; Referring Provider: GUSTAVO MERAZ MD Hx of Present Illness 41-year-old Fr[place]ian female who has had many visits for emergency room with different falls and orthopedic injuries. Roughly 18 months ago she was diagnosed with type 2 diabetes mellitus. Intercurrently she is also had a family issue where her has been diagnosed with a cancer. Prior to that she had gone through in vitro fertilization 5 times without success she reports she is now not trying to get . Her home medications have been metformin 500 mg twice daily with glargine insulin 40 units once a day. She reports she has been told that her sugar control is inadequate. She has been having abdominal pain and fluctuating blood pressures. Admitted as per the ER notes. Constitutional: no complaints (Denies fevers chills or sweats) Eyes: no complaints ENT: no complaints Respiratory: no complaints (Denies cough shortness of breath or wheezing) Cardiovascular: no complaints (Denies specific chest pain palpitations or orthopnea.) Gastrointestinal: pain (Right upper quadrant pain yesterday and after greasy meals) Genitourinary: no complaints Musculoskeletal: no complaints Skin: no complaints Neurologic: no complaints Endocrine: polydypsia, polyuria Lymphatic: no complaints Past Medical History 1) obesity, 2) diabetes mellitus type 2, 3) hypertension, 4) hyperlipidemia- mixed, 5) cholelithiasis with cholecystitis, 6) possible polycystic ovarian syndrome, 7) multiple emergency room visits for trauma and orthopedic injuries Metformin 500 twice daily, glargine insulin 40 units once a day, amlodipine 10 mg once a day, enalapril 20 mg once a day, carvedilol 6.25 mg twice daily, atorvastatin 10 mg once a day Past Surgical History Past Surgical Hx: no surgical history Family History Significant Family History: diabetes, hypertension Social History Alcohol Use: none Smoking Status: Never smoker Drug Use: none Other Social History and lives with her . He reportedly has recently been diagnosed with a cancer. Exam/Review of Systems Vital Signs Vitals Vital Signs Date Time Temp Pulse Resp B/P Pulse Ox O2 Delivery O2 Flow Rate FiO2 04/08/17 14:03 98.5 94 20 130/90 96 04/07/17 15:38 Room Air Exam Constitutional: alert, oriented Eyes: EOMI, nl conjunctiva, nl lids Neck: non-tender, supple Respiratory: clear to auscultation, normal air movement Cardiovascular: nl pulses, regular rate and rhythm Gastrointestinal: nl liver, spleen, soft, tender (Modest tenderness right upper quadrant) Musculoskeletal: nl extremities to inspection, nl gait and stance Extremities: normal pulses Results Result Diagram: 04/08/17 0718 04/08/17 0721 Results 24 hrs Laboratory Tests Test 04/07/17 17:58 04/07/17 20:50 04/07/17 21:52 04/08/17 01:34 Bedside Glucose 333 H 241 H 291 H Creatine Kinase 33 Creatine Kinase Index 0.7 Creatinine Kinase MB (Mass) 0.23 Troponin I < 0.012 Test 04/08/17 07:18 04/08/17 07:21 04/08/17 08:02 04/08/17 10:02 White Blood Count 9.7 Red Blood Count 4.00 L Hemoglobin 13.2 Hematocrit 38.9 Mean Corpuscular Volume 97.3 Mean Corpuscular Hemoglobin 33.0 Mean Corpuscular Hemoglobin Concent 33.9 Red Cell Distribution Width 13.0 Platelet Count 335 Mean Platelet Volume 9.9 Neutrophils % 55.2 Lymphocytes % 35.2 Monocytes % 8.1 Eosinophils % 0.8 Basophils % 0.4 Nucleated Red Blood Cells % 0.0 Neutrophils # (Manual) 5.4 Lymphocytes # 3.4 H Monocytes # 0.8 Eosinophils # 0.1 Basophils # 0.0 Nucleated Red Blood Cells # 0.0 Sodium Level 134 L Potassium Level 3.8 Chloride Level 103 Carbon Dioxide Level 26 Anion Gap 9 # Blood Urea Nitrogen 11 Creatinine 0.47 Glucose Level 287 #H Calcium Level 8.9 Magnesium Level 1.6 L Bedside Glucose 270 H 257 H Test 04/08/17 12:29 04/08/17 14:25 04/08/17 17:38 Bedside Glucose 277 H 319 H 241 H Medications Medications Current Medications Sodium Chloride (NS) 1,000 ml @ 100 mls/hr Q10H IV Last administered on 10:03; Admin Dose 100 MLS/HR; Start 04/07/17 at 13:21 Ondansetron HCl (Zofran Inj) 4 mg Q6H PRN IV NAUSEA AND/OR VOMITING; Start 04/07 at 13:30 Nitroglycerin (Nitroglycerin (Sl Tab) 0.4 Mg) 1 tab Q5M PRN SL CHEST PAIN; Start 04/07/17 at 13:30 Acetaminophen (Tylenol Tab) 650 mg Q6H PRN PO PAIN LEVEL 1-3 OR FEVER Last administered on 04/08/17 08:08; Admin Dose 650 MG; Start 04/07/17 at 13:30 Heparin Sodium (Porcine) (Heparin (5000 Units/0.5 ml)) 5,000 unit Q8 SC Last administered on 04/07/17 22:30; Admin Dose 5,000 UNIT; Start 04/07/17 at 14:00 Amlodipine Besylate (Norvasc) 10 mg DAILY PO Last administered on 04/08/17 08: 08; Admin Dose 10 MG; Start 04/08/17 at 09:00 Atorvastatin Calcium (Lipitor) 10 mg QHS PO Last administered on 04/07/17 20:53 ; Admin Dose 10 MG; Start 04/07/17 at 21:00 Miscellaneous Information 1 ea NOTE XX ; Start 04/07/17 at 14:00 Glucose (Glutose) 15 gm Q15M PRN PO DECREASED GLUCOSE; Start 04/07/17 at 14:00 Glucose (Glutose) 22.5 gm Q15M PRN PO DECREASED GLUCOSE; Start 04/07/17 at 14:00 Dextrose (D50w Syringe) 25 ml Q15M PRN IV DECREASED GLUCOSE; Start 04/07/17 at 14:00 Dextrose (D50w Syringe) 50 ml Q15M PRN IV DECREASED GLUCOSE; Start 04/07/17 at 14:00 Glucagon (Glucagen) 1 mg Q15M PRN IM DECREASED GLUCOSE; Start 04/07/17 at 14:00 Glucose (Glutose) 15 gm Q15M PRN BUCCAL DECREASED GLUCOSE; Start 04/07/17 at 14: 00 Carvedilol (Coreg) 12.5 mg BID PO Last administered on 04/08/17 08:07; Admin Dose 12.5 MG; Start 04/07/17 at 21:00 Acetaminophen/ Butalbital/ Caffeine (Fioricet) 1 tab Q4H PRN PO PAIN; Start 04/08/17 at 11:00 Insulin Glargine (Lantus) 16 unit DAILY@08 SC ; Start 04/09/17 at 08:00 Linagliptin (Tradjenta) 5 mg DAILY PO ; Start 04/09/17 at 09:00 Enalapril Maleate (Vasotec) 20 mg BID PO ; Start 04/08/17 at 21:00 ELE REDDING MD Apr 08, 2017 18:03
--- NOTE | 2017-04-08 19:36 | RADRPT ---
Vent Rate: 83 bpm RR Interval: 0 msec OK Interval: 148 msec QRS Duration: 68 msec QT Interval: 392 msec QTC Interval: 460 msec P-R-T [place]: 29 - 18 - 24 degrees Normal sinus rhythm Prolonged QT Abnormal ECG Electronically Signed By: Luis Urbano [id number]
--- NOTE | 2017-04-08 20:52 | HP ---
Date/Time of Note Date/Time of Note DATE: 04/07/17 TIME: 13:53 Assessment/Plan VTE Prophylaxis VTE Prophylaxis Intervention: heparin Lines/Catheters IV Catheter Type (from Nrs): Peripheral IV Urinary Cath still in place: No Assessment/Plan Assessment/Plan 41 yo F admitted for chest pain and hyperglycemia 1. Atypical chest pain r/o ACS - EKG does not show any acute changes. will repeat in the am - Will trend troponins, negative x1. if trends up will consult Cardiology - ECHO ordered - Doubt cardiac cause due to increase in stress secondary to loss of mother and health of family members - Mother was 62 when she from heart failure 2. Hyperosmolar hyperglycemia - Glucose at time of presentation was 446 - will start IV NSS 100cc/hr - will give novolog 10 units now and start accuchekcs and sliding scale with meals - Hold home dose of metformin at this time - A1c ordered. Pt unsure if drawn in the past - Consult to healthcare educator at patients request - Will check UA for protein or ketones 3. Hypertension - restarted home medications and will increase dose of enalapril to 20mg - Will continue adjusting to keep SBP <140 4. pseudohyponatremia - secondary to hyperglycemia. Corrected for glucose- 139 5. DVT prophylaxis - Heparin 6. Diet - Carb controlled diet 7. Code Status - Full Code I spent >30 minutes with the patient discussing plan of care and answering all questions and concerns. HPI/ROS Admit Date/Time Admit Date/Time Apr 07, 2017 at 12:06 Hx of Present Illness 41 yo F with PMH of DM type 2 and HTN presented to ED after experiencing chest pain since this am. was at bedside. Patient states the pain has been persistent since this am, sharp in nature, located in sternal radiating to left side, 10/10 this am but 8/10 currently after pain medication given in the ED. Nothing makes it worse. Occurred at rest with associated nausea but denies any vomiting or shortness of breath. Does admit to a severe headache that began this am as well. Patient states she took all her antihypertensives this am. She has never experienced these symptoms in the past. Patient's mother 20 days ago from heart failure and father and both currently have cancer. Patient denies any anxiety but admits to stress. Troponin was negative x1. Patient denies any other family members with heart conditions. Patient admits to taking all her BP medications this am but SBP has been persistently in the 150s. Patient was also found to have a blood sugar in the 400s. States sugars are usually well controlled in the 100s without levels > 200. She took her medication this morning but was not feeling well and when she checked her glucose, was in the 400s. She denies polyuria, polydipsia, urinary symptoms, constipation, but has been experiencing diminished appetite. ROS ROS as per HPI. All other systems reviewed an are negative. Constitutional: fatigue, nausea, poor po, No febrile Eyes: no complaints ENT: No congestion, No discharge Respiratory: No cough, No shortness of breath, No sputum Cardiovascular: chest pain, lightheadedness, No palpitations Gastrointestinal: decreased appetite, nausea, No constipation, No diarrhea, No vomiting Genitourinary: no complaints Musculoskeletal: No bone/joint pain Skin: No bruising, No erythema, No skin lesions Neurologic: dizziness, headache, No focal-weakness, No syncope Endocrine: No polydypsia, No polyuria Lymphatic: no complaints Psychological: No anxiety, No confusion, No depression Immunologic: no complaints Eyes: no complaints ENT: no complaints Respiratory: no complaints (Denies cough shortness of breath or wheezing) Cardiovascular: no complaints (Denies specific chest pain palpitations or orthopnea.) Gastrointestinal: pain (Right upper quadrant pain yesterday and after greasy meals) Genitourinary: no complaints Musculoskeletal: no complaints Skin: no complaints Neurologic: no complaints Lymphatic: no complaints PMH/Family/Social Past Medical History Medical History: diabetes, hypertension Past Surgical History Past Surgical Hx: noncontributory Past Surgical Hx: no surgical history Social History Alcohol Use: none Smoking Status: Never smoker Drug Use: none Exam/Review of Systems Vital Signs Vitals Vital Signs Date Time Temp Pulse Resp B/P Pulse Ox O2 Delivery O2 Flow Rate FiO2 04/08/17 14:03 98.5 94 20 130/90 96 04/07/17 15:38 Room Air Exam Exam Constitutional: alert, oriented, other (fatigued), well developed Psych: nl mood/affect Head: atraumatic, normocephalic Eyes: EOMI, PERRL Neck: non-tender, No jvd Respiratory: clear to auscultation, normal air movement, No crackles/rales, No wheezing Cardiovascular: nl pulses, regular rate and rhythm, No edema, No rub, No systolic murmur Gastrointestinal: nl liver, spleen, non-tender, soft, No distended, No rebound or guarding Genitourinary - Female: No CVA tenderness Musculoskeletal: No joint tenderness, No muscle weakness Extremities: No clubbing, No cyanosis, No edema Neurological: No confused, No focal weakness Skin: nl turgor Lymph: nl lymph nodes Labs Result Diagram: 04/08/17 0718 04/08/17 0721 GUSTAVO MERAZ MD Apr 08, 2017 20:52
--- NOTE | 2017-04-08 20:53 | DS ---
Date/Time of Note Date/Time of Note DATE: 04/08/17 TIME: 20:53 Discharge Summary Admission/Discharge Info Admit Date/Time Apr 07, 2017 at 12:06 Discharge Date/Time Apr 08, 2017 at 19:16 Discharge Diagnosis Uncontrolled Diabetes Mellitus Patient Condition: Fair Consults Endocrinology, Dr. Andrea Hx of Present Illness 41 yo F with PMH of DM type 2 and HTN presented to ED after experiencing chest pain since this am. was at bedside. Patient states the pain has been persistent since this am, sharp in nature, located in sternal radiating to left side, 10/10 this am but 8/10 currently after pain medication given in the ED. Nothing makes it worse. Occurred at rest with associated nausea but denies any vomiting or shortness of breath. Does admit to a severe headache that began this am as well. Patient states she took all her antihypertensives this am. She has never experienced these symptoms in the past. Patient's mother 20 days ago from heart failure and father and both currently have cancer. Patient denies any anxiety but admits to stress. Troponin was negative x1. Patient denies any other family members with heart conditions. Patient admits to taking all her BP medications this am but SBP has been persistently in the 150s. Patient was also found to have a blood sugar in the 400s. States sugars are usually well controlled in the 100s without levels > 200. She took her medication this morning but was not feeling well and when she checked her glucose, was in the 400s. She denies polyuria, polydipsia, urinary symptoms, constipation, but has been experiencing diminished appetite. Hospital Course Patient was admitted for chest pain rule out acute coronary syndrome. Workup was performed and chest pain resolved. Cardiology was not consulted due to unlikelihood of being cardiac in nature. Patient however was found to have an A1c of 10.3 with glucose in the 400s at presentation. Patient initially stated she was only on Metformin for glucose control but later admitted to being on Lantus. Patient was seen by nurse educator who adjusted her insulin regime and counseled patient on proper diet and techniques to improve glucose control. Endocrinology was consulted as well for recommendations and was concerned about possible cholelithiasis being possible cause of elevated glucose in setting of chronic inflammatory issues. Recommendations were made to get a HIDA scan and possible MRCP. Patient did not currently admit to having abdominal discomfort. Her blood pressure was not well controlled either and BB and BRANDEN inhibitor dosages were increased. Patient also needed an increase to her statin medication. Patient received a call about the declining health of her father and decided to leave AMA. I discussed with patient the need to return to the ED if experiencing worsening symptoms or follow up with her PCP on Wednesday when he returned. Patient agreed and left against medical advice. Patient did not request any prescriptions prior to leaving. Home Meds Reported Medications Metformin Hcl* (Metformin Hcl*) 500 Mg Tablet, 500 MG PO WITH BREAKFAST DINNE, # 30 TAB 04/27/16 Fenofibrate, Micronized (Fenofibrate) 134 Mg Capsule, 134 MG PO DAILY, CAP 04/27/16 Atorvastatin Calcium (Atorvastatin Calcium) 10 Mg Tablet, 10 MG PO QHS, #30 TAB 04/27/16 Amlodipine Besylate* (Amlodipine Besylate*) 10 Mg Tablet, 10 MG PO DAILY, #30 TAB 04/27/16 Enalapril Maleate* (Enalapril Maleate*) 10 Mg Tablet, 10 MG PO DAILY, TAB 04/27/16 Carvedilol* (Carvedilol*) 6.25 Mg Tablet, 6.25 MG PO BID, #60 TAB 04/27/16 Discontinued Scripts Ondansetron Hcl* (Zofran*) 4 Mg Tablet, 4 MG PO Q6H for NAUSEA AND/OR VOMITING, #30 TAB Prov:AICHA NELSON PA-C 04/05/17 Lorazepam* (Ativan*) 0.5 Mg Tablet, 0.5 MG PO Q8, #10 TAB Prov:AICHA NELSON PA-C 04/05/17 Hydrocodone/Acetaminophen (Hamer 5-325 Tablet) 1 Each Tablet, 1 TAB PO Q6H Y for PAIN, #10 TAB Prov:AICHA NELSON PA-C 04/05/17 Ondansetron (Ondansetron Odt) 4 Mg Tab.rapdis, 4 MG PO Q6H Y for NAUSEA AND/OR VOMITING, #20 TAB Prov:EMILIA URIOSTEGUI PA-C 02/27/17 Hydrocodone/Acetaminophen (Hamer 10-325 Tablet) 1 Each Tablet, 1 TAB PO Q6H Y for PAIN, #20 TAB Prov:EMILIA URIOSTEGUI PA-C 02/27/17 Nitrofurantoin Monohyd Macrocr* (Macrobid*) 100 Mg Capsr, 100 MG PO BID for 7 Days, CAP Prov:EMILIA URIOSTEGUI MEENA 02/27/17 Albuterol Sulfate* (Proair HFA*) 8.5 Gm Hfa.aer.ad, 2 PUFF INH Q6H Y for COUGH, #1 INHALER Prov:TERRELL RUFF MD 10/03/16 Acetaminophen* (Tylophen*) 500 Mg Capsule, 2 CAP PO Q8H Y for PAIN AND OR ELEVATED TEMP, #30 CAP Prov:TERRELL RUFF MD 10/03/16 Azithromycin* (Zithromax*) 500 Mg Tablet, 500 MG PO DAILY for 5 Days, TAB Prov:TERRELL RUFF MD 10/03/16 Hydrocodone/Acetaminophen (Hamer 10-325 Tablet) 1 Each Tablet, 1 TAB PO Q6H Y for PAIN, #7 TAB Prov:SHANA MONTANEZ MD 07/27/16 Oxycodone HCl/Acetaminophen (Percocet 5-325 mg Tablet) 1 Each Tablet, 1 EACH PO TID for PAIN, #12 TAB Prov:TERRELL RUFF MD 04/27/16 Follow-up Plan Follow up with PCP as well as Dr. Andrea, endocrinology. Patient was also informed about possible cholecystitis and may need a HIDA scan in the near future. Her Carvedilol was increased to 12.5 mg BID during hospitalization and Enalapril to 20mg. She was also started on Novolog 5 units with meals. Primary Care Provider Rona Cervantes MD Time spent on discharge: < 30 minutes Pending Labs Laboratory Tests Test 04/07/17 21:52 04/08/17 01:34 04/08/17 07:18 04/08/17 07:21 Creatine Kinase 33IU/L (23-200) Creatine Kinase Index 0.7 Creatinine Kinase MB (Mass) 0.23ng/ml (0.0-2.4) Troponin I < 0.012ng/ml (0.00-0.12) Bedside Glucose 291mg/dL (70-220) White Blood Count 9.710^3/ul (4.8-10.8) Red Blood Count 4.0010^6/ul (4.20-5.40) Hemoglobin 13.2g/dl (12.0-16.0) Hematocrit 38.9% (37.0-47.0) Mean Corpuscular Volume 97.3fl (82.0-101.0) Mean Corpuscular Hemoglobin 33.0pg (29.0-33.0) Mean Corpuscular Hemoglobin Concent 33.9g/dl (32.0-37.0) Red Cell Distribution Width 13.0% (11.5-14.5) Platelet Count 44351^3/UL (140-415) Mean Platelet Volume 9.9fl (7.4-10.4) Neutrophils % 55.2% (39.0-77.0) Lymphocytes % 35.2% (15.0-51.0) Monocytes % 8.1% (0.0-11.0) Eosinophils % 0.8% (0.0-7.0) Basophils % 0.4% (0.0-2.0) Nucleated Red Blood Cells % 0.0/100WBC (0.0-0.0) Neutrophils # (Manual) 5.410^3/ul (1.7-7.5) Lymphocytes # 3.410^3/ul (0.8-2.9) Monocytes # 0.810^3/ul (0.3-0.9) Eosinophils # 0.110^3/ul (0.0-0.5) Basophils # 0.010^3/ul (0.0-0.1) Nucleated Red Blood Cells # 0.010^3/ul (0.0-0.0) Sodium Level 134mmol/L (135-144) Potassium Level 3.8mmol/L (3.5-5.1) Chloride Level 103mmol/L (97-110) Carbon Dioxide Level 26mmol/L (21-31) Anion Gap 9 (8-16) Blood Urea Nitrogen 11mg/dl (7-20) Creatinine 0.47mg/dl (0.44-1.00) Glucose Level 287mg/dl (70-220) Calcium Level 8.9mg/dl (8.4-10.2) Magnesium Level 1.6mg/dl (1.7-2.5) Hepatitis B Surface Antigen NEGATIVE (NEGATIVE) Hepatitis C Antibody NEGATIVE (NEGATIVE) Test 9/7/17 08:02 04/08/17 10:02 04/08/17 12:29 04/08/17 14:25 Bedside Glucose 270mg/dL (70-220) 257mg/dL (70-220) 277mg/dL (70-220) 319mg/dL (70-220) Test 04/08/17 17:38 Bedside Glucose 241mg/dL (70-220) GUSTAVO MERAZ MD Apr 08, 2017 20:53
[2017-04-08] MEDS ORDERED: FISH OIL 1,000 MG CAP PO SCH (21:00)
[2017-04-08] MEDS ORDERED: ATORVASTATIN 40 MG TAB PO SCH (21:00)
[2017-04-09] MEDS ORDERED: INSULIN GLARGINE [LANtus] 3 ML PEN SC SCH ×2 (08:00)
[2017-04-09] MEDS ORDERED: LINAGLIPTIN 5 MG TABLET PO SCH (09:00)
== END 2017-04-08 19:16 | disposition left against medical advice (07) | DRG 639 ==
LOC: E/R 09:44 → MS3 12:06 → TEL 19:41
PROVIDERS: ADMIT Internal Medicine; ATTEND Internal Medicine
DX: E11.65 Type 2 diabetes mellitus with hyperglycemia (principal); I10 Essential (primary) hypertension; R07.89 Other chest pain
CPT/HCPCS: 36415; 71010; 80048; 80061; 82550; 82553; 82962; 83036; 83735; 84443; 84484; 85025; 86803; 87340; 93005; 93306; 96372; 96374; 96375; J1644; J1815; J2270; J2405; J3475; J7030

== ENCOUNTER 2017-05-12 22:04 | Emergency (ER) | payer OTHER ==
[~2017-05-12] VITALS: Ht 154.9 cm; Wt 80.0 kg
[~2017-05-12 22:04] MED LIST changes: -ACET500C5 PO; -ALBU8.5H3 INH; -AZIT500T3 PO; -HYDR-902 PO; -HYDR-906 PO; -LORA-441 PO; -NITR-58 PO; -ONDA4TAB14 PO; -ONDA4TAB8 PO; -OXYC-279 PO
[2017-05-12 22:07] VITALS: Ht 154.9 cm; Wt 80.0 kg
[2017-05-12] MEDS ORDERED: FAMOTIDINE 20 MG INJ IV STA (23:19)
[2017-05-12] MEDS ORDERED: ONDANSETRON 4 MG INJ IV STA (23:19)
[2017-05-12] MEDS ORDERED: SOD CHLORIDE 0.9% 1,000 ML IV STA (23:19)
[2017-05-12] MEDS ORDERED: morphine 4 MG/ML VIAL IV STA (23:19)
[2017-05-13] LABS: BASOPHIL # 0.1 10^3/ul (0.0-0.1); BASOPHILS % 0.5 % (0.0-2.0); EOSINOPHILS # 0.1 10^3/ul (0.0-0.5); EOSINOPHILS % 0.5 % (0.0-7.0); HEMATOCRIT 41.6 % (37.0-47.0); LYMPHOCYTES # 4.9 10^3/ul (0.8-2.9); LYMPHOCYTES % 40.5 % (15.0-51.0); MEAN CORPUSCULAR HEMOGLOBIN 32.2 pg (29.0-33.0); MEAN CORPUSCULAR HGB CONC 33.7 g/dl (32.0-37.0); MEAN CORPUSCULAR VOLUME 95.6 fl (82.0-101.0); MEAN PLATELET VOLUME 9.9 fl (7.4-10.4); MONOCYTES % 8.3 % (0.0-11.0); NEUTROPHILS % 49.8 % (39.0-77.0); PLATELET COUNT 407 10^3/UL (140-415); RED BLOOD COUNT 4.35 10^6/ul (4.20-5.40); RED CELL DISTRIBUTION WIDTH 12.9 % (11.5-14.5); WHITE BLOOD COUNT 12.1 10^3/ul (4.8-10.8)
[2017-05-13 00:24] LABS: ALBUMIN 4.3 g/dl (3.3-4.9); ALBUMIN/GLOBULIN RATIO 0.93; CREATININE 0.64 mg/dl (0.44-1.00); POTASSIUM 3.7 mmol/L (3.5-5.1); TOTAL PROTEIN 8.9 g/dl (6.1-8.1)
[2017-05-13 00:30] LABS: ADD UMIC YES; UR ASCORBIC ACID NEGATIVE (NEGATIVE); UR BACTERIA FEW /HPF (NONE SEEN); UR BILIRUBIN (Dip) NEGATIVE (NEGATIVE); UR BLOOD (Dip) NEGATIVE (NEGATIVE); UR CLARITY SLIGHTLY CLOUDY (CLEAR); UR COLOR YELLOW (YELLOW); UR GLUCOSE (Dip) 3+ mg/dL (NEGATIVE); UR KETONES (Dip) NEGATIVE (NEGATIVE); UR LEUKOCYTE ESTERASE (Dip) 3+ Leu/ul (NEGATIVE); UR NITRITE (Dip) NEGATIVE (NEGATIVE); UR RBC 11 /HPF (0-5); UR SPECIFIC GRAVITY (Dip) 1.044 (1.003-1.030); UR SQUAMOUS EPITHELIAL CELL FEW /HPF (FEW); UR TOTAL PROTEIN (Dip) 2+ mg/dl (NEGATIVE); UR UROBILINOGEN (Dip) NEGATIVE (NEGATIVE)
[2017-05-13] MEDS ORDERED: morphine 4 MG/ML VIAL IV STA (00:40)
[2017-05-13] MEDS ORDERED: CEFTRIAXONE 1 GM/50 ML (PMX) 50 ML IVPB ONE (01:00)
--- NOTE | 2017-05-13 01:01 | RADRPT ---
PROCEDURE: US right upper quadrant CLINICAL INDICATION: Abdominal pain TECHNIQUE: Multiple real-time images were acquired of the patient's right upper abdomen utilizing a high resolution transducer. COMPARISON: 02/27/2017 FINDINGS: Liver: Diffuse increased echogenicity compatible with hepatic steatosis. Hepatomegaly is again not ed. There is normal liver contour and no evidence of mass or ductal dilatation. Normal directional b lood flow is seen within the patent main portal vein. The maximum dimension of the liver estimated a t 22.4 cm . Gallbladder: Normal. No sonographic Horton's sign is reported. Common bile duct: Normal; 4.1 mm. There is no evidence for choledocholithiasis. Right Kidney: Normal; maximum length measured at approximately 13.7 cm. Pancreas: Obscured by bowel gas. RPTAT:HJJR IMPRESSION: 1. Stable hepatic steatosis and hepatomegaly. 2. Unremarkable gallbladder. Previously suggested impacted stone in the neck of the gallbladder on the study of 02/27/2017 is not evident and no sonographic Horton's sign is currently reported. 3. Bowel gas obscures visualization of the pancreas. Physician Brenda Date Time Electronically viewed and signed by Physician Brenda on 05/13/2017 01:01 JR/
--- NOTE | 2017-05-13 01:11 | ERD ---
ER Documentation Chief Complaint Date/Time DATE: 05/13/17 TIME: 01:09 Chief Complaint c/o RUQ AP today. hx gallstones. states bld sugar high. BS 326 in intake HPI This is a 41-year-old female presents to the ER for evaluation of abdominal pain. The patient states that her abdominal pain is been present for the day. She states that she does have a history of gallstones. She describes her pain as an achy pain and sharp pain localized to the right portion of the abdomen with mild radiation to her back. She states that she is nauseous and is vomited once and had nonbilious vomit. She came to the ER today for evaluation of her pain. ROS All systems reviewed and are negative except as per history of present illness. Medications Home Meds Reported Medications Metformin Hcl* (Metformin Hcl*) 500 Mg Tablet, 500 MG PO WITH BREAKFAST DINNE, # 30 TAB 04/27/16 Fenofibrate, Micronized (Fenofibrate) 134 Mg Capsule, 134 MG PO DAILY, CAP 04/27/16 Atorvastatin Calcium (Atorvastatin Calcium) 10 Mg Tablet, 10 MG PO QHS, #30 TAB 04/27/16 Amlodipine Besylate* (Amlodipine Besylate*) 10 Mg Tablet, 10 MG PO DAILY, #30 TAB 04/27/16 Enalapril Maleate* (Enalapril Maleate*) 10 Mg Tablet, 10 MG PO DAILY, TAB 04/27/16 Carvedilol* (Carvedilol*) 6.25 Mg Tablet, 6.25 MG PO BID, #60 TAB 04/27/16 Allergies Allergies: Coded Allergies: Penicillins (Verified Allergy, Unknown, 05/12/17) ampicillin (Verified Allergy, Unknown, rash, 05/12/17) ibuprofen (Verified Allergy, Unknown, 05/12/17) Uncoded Allergies: FISH (Allergy, Unknown, 02/16/16) PMhx/Soc Medical and Surgical Hx: pt denies Surgical Hx History of Surgery: No Anesthesia Reaction: No Hx Neurological Disorder: No Hx Respiratory Disorders: No Hx Cardiac Disorders: Yes (HTN) Hx Psychiatric Problems: No Hx Miscellaneous Medical Probl: Yes (IDDM) Hx Alcohol Use: No Hx Substance Use: No Hx Tobacco Use: Yes Smoking Status: Former smoker Physical Exam Vitals Vital Signs Date Time Temp Pulse Resp B/P Pulse Ox O2 Delivery O2 Flow Rate FiO2 10/11/17 22:07 98.9 98 20 183/109 99 Physical Exam INITIAL VITAL SIGNS: Reviewed by me GENERAL: The patient is well developed and appropriate for usual state of health in no apparent distress HEENT: Pupils equal, round, and reactive to light. EOMI. There is no scleral icterus. NECK: C-spine is soft and supple, there is no meningismus. There is no cervical lymphadenopathy. LUNGS: Clear to auscultation bilaterally. There are no rales, wheezes or rhonchi. HEART: Regular rate and rhythm, no murmurs, clicks, rubs or gallops. ABDOMEN: Horton sign, otherwise soft, non-tender, non-distended. There are bowel sounds in all four quadrants. No rebound or guarding. EXTREMITIES: There is no peripheral cyanosis or edema. No focal swelling or erythema. NEUROLOGICAL: The patient moves all four extremities with 5/5 strength. Cranial nerves II - XII are intact. Normal gait. Alert and oriented SKIN: There is no apparent rash or petechiae. HEME/LYMPHATIC: There is no evidence of excessive bruising or lymphedema. PSYCHIATRIC: The patient does not appear anxious or depressed. Result Diagram: 05/12/17 2340 05/12/17 234 Results 24 hrs Laboratory Tests Test 05/12/17 22:09 05/12/17 23:10 05/12/17 23:40 Bedside Glucose 326mg/dL Urine Color YELLOW Urine Clarity SLIGHTLY CLOUDY Urine pH 5.0 Urine Specific Glidden 1.044 Urine Ketones NEGATIVEmg/dL Urine Nitrite NEGATIVEmg/dL Urine Bilirubin NEGATIVEmg/dL Urine Urobilinogen NEGATIVEmg/dL Urine Leukocyte Esterase 3+Yesi/ul Urine Microscopic RBC 11/HPF Urine Microscopic WBC 26/HPF Urine Squamous Epithelial Cells FEW/HPF Urine Bacteria FEW/HPF Urine Hemoglobin NEGATIVEmg/dL Urine Glucose 3+mg/dL Urine Total Protein 2+mg/dl White Blood Count 12.110^3/ul Red Blood Count 4.3510^6/ul Hemoglobin 14.0g/dl Hematocrit 41.6% Mean Corpuscular Volume 95.6fl Mean Corpuscular Hemoglobin 32.2pg Mean Corpuscular Hemoglobin Concent 33.7g/dl Red Cell Distribution Width 12.9% Platelet Count 71105^3/UL Mean Platelet Volume 9.9fl Neutrophils % 49.8% Lymphocytes % 40.5% Monocytes % 8.3% Eosinophils % 0.5% Basophils % 0.5% Nucleated Red Blood Cells % 0.0/100WBC Neutrophils # 6.010^3/ul Lymphocytes # 4.910^3/ul Monocytes # 1.010^3/ul Eosinophils # 0.110^3/ul Basophils # 0.110^3/ul Nucleated Red Blood Cells # 0.010^3/ul Sodium Level 136mmol/L Potassium Level 3.7mmol/L Chloride Level 101mmol/L Carbon Dioxide Level 24mmol/L Anion Gap 15 Blood Urea Nitrogen 11mg/dl Creatinine 0.64mg/dl Glucose Level 383mg/dl Calcium Level 10.0mg/dl Total Bilirubin 0.0mg/dl Direct Bilirubin 0.00mg/dl Indirect Bilirubin 0.0mg/dl Aspartate Amino Transf (AST/SGOT) 27IU/L Alanine Aminotransferase (ALT/SGPT) 39IU/L Alkaline Phosphatase 70IU/L Total Protein 8.9g/dl Albumin 4.3g/dl Globulin 4.60g/dl Albumin/Globulin Ratio 0.93 Lipase 409U/L Current Medications Medications (Trade) Dose Ordered Sig/Thuan Route PRN Reason Start Time Stop Time Status Last Admin Dose Admin Sodium Chloride (NS) 1,000 ml @ 1,000 mls/hr Q1H STAT IV 05/12/17 23:19 05/13/17 00:18 DC 05/12/17 23:36 Morphine Sulfate (morphine) 4 mg ONCE STAT IV 05/12/17 23:19 05/12/17 23:21 DC 05/12/17 23:36 Ondansetron HCl (Zofran Inj) 4 mg ONCE STAT IV 05/12/17 23:19 05/12/17 23:21 DC 05/12/17 23:35 Famotidine 20 mg 20 mg ONCE STAT IV 05/12/17 23:19 05/12/17 23:21 DC 05/12/17 23:35 Ceftriaxone Sodium (Rocephin) 50 ml @ 100 mls/hr ONCE ONCE IVPB 05/13/17 01:00 05/13/17 01:29 05/13/17 00:58 Morphine Sulfate (morphine) 4 mg ONCE STAT IV 05/13/17 00:40 05/13/17 00:41 DC 05/13/17 00:59 Procedures/MDM Ultrasound gallbladder:1. Stable hepatic steatosis and hepatomegaly. 2. Unremarkable gallbladder. Previously suggested impacted stone in the neck of the gallbladder on the study of 02/27/2017 is not evident and no sonographic Horton's sign is currently reported. 3. Bowel gas obscures visualization of the pancreas. This is a 41-year-old female who presents to the ER for evaluation of abdominal pain. On my examination she did have tenderness in the right upper quadrant. The patient underwent lab work in the emergency room including ultrasound. The patient's ultrasound does not show any signs of cholecystitis. The patient is a slight leukocytosis however she is found to have urinary tract infection. The patient was given 1 g Rocephin in the emergency room. Pain is controlled with morphine at this time. She has had no episodes of vomiting. The patient will be discharged home with a prescription for [place] for pain, Zofran for nausea, and ciprofloxacin for cystitis at this time. I advised her she can return to the emergency room at any point for reevaluation and she verbalized understanding. She does have a slight elevation in her blood glucose and was advised to take her nighttime medications. The patient also has a slight increase in her lipase however no need for admission given her symptoms are improving at this time Departure Diagnosis: Primary Impression: Abdominal pain Additional Impression: Pancreatitis Condition: Stable MONSERRAT CALHOUN DO May 13, 2017 01:11
[2017-05-13] MEDS ORDERED: HYDR-906 PO (01:14)
[2017-05-13] MEDS ORDERED: ONDA4TAB8 PO (01:14)
[2017-05-13] MEDS ORDERED: CIPR500T4 PO (01:14)
[2017-05-13 02:00] VITALS: BP 157/80; PULSE 87; RESP 18; TEMP 98.7
== END 2017-05-13 02:00 | disposition home or self-care (01) ==
LOC: E/R 22:04
DX: K85.90 Acute pancreatitis without necrosis or infection, unspecified (principal); I10 Essential (primary) hypertension; E11.9 Type 2 diabetes mellitus without complications; Z79.84 Long term (current) use of oral hypoglycemic drugs; Z87.891 Personal history of nicotine dependence
CPT/HCPCS: 36415; 76705; 80053; 81001; 82962; 83690; 85025; 96361; 96365; 96375; 96376; J0696; J2270; J2405; J7030; Z7502; Z7610

== ENCOUNTER 2017-05-19 11:11 | Emergency (ER) | payer OTHER ==
[~2017-05-19] VITALS: Wt 73.6 kg
[~2017-05-19 11:11] MED LIST changes: +CIPR500T4 PO; +HYDR-906 PO; +ONDA4TAB8 PO
[2017-05-19] MEDS ORDERED: HYDROCODONE/APAP (5/325) TAB PO ONE (14:00)
--- NOTE | 2017-05-19 15:14 | RADRPT ---
PROCEDURE: Left knee x-ray CLINICAL INDICATION: Trauma, pain. TECHNIQUE: AP, lateral and tunnel nonweightbearing views of the left knee were obtained. COMPARISON: None. FINDINGS: There is normal mineralization. No acute fracture or dislocation is seen. Moderate medial and mild lateral and patellofemoral joint space narrowing is present.. There is no joint effusion. There is no significant soft tissue swelling. IMPRESSION: 1. No acute fracture or dislocation. 2. Moderate medial and mild lateral and patellofemoral joint space narrowing. RPTAT: HRSR Physician Noreen Date Time Electronically viewed and signed by Physician Noreen on 05/19/2017 15:14 /
[2017-05-19] MEDS ORDERED: HYDR-906 PO (15:26)
--- NOTE | 2017-05-19 15:26 | ERD ---
ER Documentation Chief Complaint Date/Time DATE: 05/19/17 Chief Complaint Left knee pain HPI The patient is a 41-year-old female who presents to the Emergency Department with complaint of left knee pain. The patient reports that while making her bed , she accidentally bumped her left knee against the edge of the bed post. Since , she has been experiencing a constant, aching pain to the left anterior knee, which she currently rates as 7/10. The pain is worse with weight-bearing activity and palpation, and is improved at rest and with elevation. She took a dose of Tylenol at 8:00 om last night, with only minimal relief. She denies any numbness, tingling or weakness of the distal extremity. Denies restricted range of motion. No other complaints at this time. ROS All systems reviewed and are negative except as per history of present illness. Medications Home Meds Active Scripts Hydrocodone/Acetaminophen ([place] 5-325 Tablet) 1 Each Tablet, 1 EACH PO Q6, #10 TAB Prov:GIACOMO VELASCO PA-C 05/19/17 Ondansetron Hcl* (Zofran*) 4 Mg Tablet, 4 MG PO Q6H for NAUSEA AND/OR VOMITING, #10 TAB Prov:MONSERRAT CALHOUN DO 05/13/17 Ciprofloxacin Hcl* (Ciprofloxacin Hcl*) 500 Mg Tablet, 500 MG PO BID for 7 Days , TAB Prov:MONSERRAT CALHOUN DO 05/13/17 Hydrocodone/Acetaminophen ([place] 5-325 Tablet) 1 Each Tablet, 1 TAB PO Q6H Y for PAIN, #15 TAB Prov:MONSERRAT CALHOUN DO 05/13/17 Reported Medications Metformin Hcl* (Metformin Hcl*) 500 Mg Tablet, 500 MG PO WITH BREAKFAST DINNE, # 30 TAB 04/27/16 Fenofibrate, Micronized (Fenofibrate) 134 Mg Capsule, 134 MG PO DAILY, CAP 04/27/16 Atorvastatin Calcium (Atorvastatin Calcium) 10 Mg Tablet, 10 MG PO QHS, #30 TAB 04/27/16 Amlodipine Besylate* (Amlodipine Besylate*) 10 Mg Tablet, 10 MG PO DAILY, #30 TAB 04/27/16 Enalapril Maleate* (Enalapril Maleate*) 10 Mg Tablet, 10 MG PO DAILY, TAB 04/27/16 Carvedilol* (Carvedilol*) 6.25 Mg Tablet, 6.25 MG PO BID, #60 TAB 04/27/16 Allergies Allergies: Coded Allergies: Penicillins (Verified Allergy, Unknown, 05/19/17) ampicillin (Verified Allergy, Unknown, rash, 05/19/17) ibuprofen (Verified Allergy, Unknown, 05/19/17) Uncoded Allergies: FISH (Allergy, Unknown, 02/16/16) PMhx/Soc Medical and Surgical Hx: pt denies Medical Hx, pt denies Surgical Hx History of Surgery: No Anesthesia Reaction: No Hx Neurological Disorder: No Hx Respiratory Disorders: No Hx Cardiac Disorders: Yes (HTN) Hx Psychiatric Problems: No Hx Miscellaneous Medical Probl: Yes (IDDM) Hx Alcohol Use: No Hx Substance Use: No Hx Tobacco Use: Yes Smoking Status: Current every day smoker Physical Exam Vitals Vital Signs Date Time Temp Pulse Resp B/P Pulse Ox O2 Delivery O2 Flow Rate FiO2 05/19/17 11:13 99.0 113 20 163/98 98 Physical Exam Const: Well-developed, well-nourished, in no acute distress. Head: Atraumatic Eyes: Normal Conjunctiva ENT: Normal External Ears, Nose and Mouth. Neck: Full range of motion..~ No meningismus. Resp: Clear to auscultation bilaterally Cardio: Regular rate and rhythm Skin: No petechiae or rashes Back: No midline tenderness Ext: No clubbing, cyanosis, or edema. Normal skin perfusion. Tenderness to palpation to the anterior aspect of the left knee. No crepitus. Normal flexion and extension of the left knee. Increased discomfort with with plantarflexion but not dorsiflexion. No crepitus appreciated. No gross deformities. No focal swelling or erythema. No prepatellar effusion. Negative Marcos test. Negative anterior drawer test. No increased laxity with varus or valgus stress applied. No distal tib/fib tenderness. DP/PT pulses 2+. Capillary refill is less than 2 seconds. Muscle tone is normal. Compartments are soft. No abnormal bony prominences. Distal neurovascular status intact. No foot drop. No calf swelling or calf tenderness. No cords. Neuro: Awake and alert. Motor and sensation grossly intact. Psych: Cooperative. Appropriate. Results 24 hrs Current Medications Medications (Trade) Dose Ordered Sig/Thuan Route PRN Reason Start Time Stop Time Status Last Admin Dose Admin Acetaminophen/ Hydrocodone Bitart ([place] (5/121)) 1 tab ONCE ONCE PO 05/19/17 14:00 05/19/17 14:01 DC 05/19/17 14:13 Procedures/MDM DIAGNOSTIC TESTS AND INTERPRETATION: PROCEDURE: Left knee x-ray CLINICAL INDICATION: Trauma, pain. TECHNIQUE: AP, lateral and tunnel nonweightbearing views of the left knee were obtained. COMPARISON: None. FINDINGS: There is normal mineralization. No acute fracture or dislocation is seen. Moderate medial and mild lateral and patellofemoral joint space narrowing is present.. There is no joint effusion. There is no significant soft tissue swelling. IMPRESSION: 1. No acute fracture or dislocation. 2. Moderate medial and mild lateral and patellofemoral joint space narrowing. Physician Noreen Date Time Electronically viewed and signed by Kim Stanford Physician on 05/19/2017 15 :14 BRANDEN WRAP APPLICATION: INDICATION: Left knee pain. LOCATION: Left lower extremity, knee NEUROVASCULAR EXAM: The patients extremity was neurovascularly intact prior to and status post branden wrap placement. MEDICAL DECISION MAKING: This is a 41-year-old female presenting to the Emergency Department with left knee pain s/p hitting it against her bedpost while fixing her bed. The patient had tenderness to palpation over the anterior aspect of the left knee on physical examination. Otherwise, no focal swelling or erythema. No gross deformities. Distal neurovascular status was intact, with 2+ peripheral pulses and normal capillary refill. No restricted range of motion. The differential diagnosis includes, but is not limited to, septic joint, gout, arthritis, fracture, dislocation, sprain, strain, contusion , tendinitis, ligament injury, meniscal injury, malignancy. She had no calf swelling or calf tenderness, no findings to suggest DVT. No focal swelling or erythema, no restricted range of motion, fevers, constitutional symptoms, or findings to suggest septic joint. Patient presentation not consistent with gout or inflammatory arthritis. No acute osseous abnormalities were noted on x- ray performed. There is currently no clinical evidence of fracture, dislocation , subluxation or any other emergent medical condition. After rest and administration of [place], the patient reports no new complaints, and decreased pain. The patient's left lower extremity was placed in an branden wrap. She was provided crutches for further stabilization. Upon my review and interpretation of the patient's presentation and overall ER course, I believe the patient's symptoms are most consistent with left knee pain. At this time the patient is in stable condition, and therefore she can be discharged home with prescription for [place] and given strict return precautions for signs of deteriorating or worsening condition. She is advised to follow-up with her primary care provider for reevaluation and further management within the next 2-3 days or return to the ER sooner for any new or worsening symptoms. If symptoms persist, recommend outpatient orthopedic evaluation. I shared my medical decision making and plan with the patient at length and in great detail , and she verbally understands and agrees with the plan for further observation and care as an outpatient. At the time of discharge all questions were answered. Departure Diagnosis: Primary Impression: Left knee pain Chronicity: acute Qualified Code: M25.562 - Acute pain of left knee Condition: Stable Patient Instructions: Knee Pain, Uncertain Cause, R.I.C.E., Reducing Knee Pain and Swelling Additional Instructions: Call your primary care doctor TOMORROW for an appointment during the next 2-3 days.See the doctor sooner or return here if your condition worsens before your appointment time. GIACOMO VELASCO PA-C May 19, 2017 15:25
== END 2017-05-19 16:05 | disposition home or self-care (01) ==
LOC: FTE 11:11
DX: M25.562 Pain in left knee (principal); E11.9 Type 2 diabetes mellitus without complications; I10 Essential (primary) hypertension; F17.210 Nicotine dependence, cigarettes, uncomplicated
CPT/HCPCS: 73562; Z7502; Z7610

== ENCOUNTER 2017-06-07 08:59 | Emergency (ER) | payer OTHER ==
[~2017-06-07] VITALS: Ht 154.9 cm; Wt 80.6 kg
[2017-06-07 09:02] VITALS: Ht 154.9 cm; Wt 80.6 kg
[2017-06-07] MEDS ORDERED: SOD CHLORIDE 0.9% 1,000 ML IV STA (09:44)
[2017-06-07] MEDS ORDERED: HYDROmorphONE 1 MG/ML SYG IV STA ×2 (09:44→10:49)
[2017-06-07] MEDS ORDERED: ONDANSETRON 4 MG INJ IV STA ×2 (09:44→10:49)
--- NOTE | 2017-06-07 10:38 | RADRPT ---
PROCEDURE: CT Abdomen and Pelvis without contrast. CLINICAL INDICATION: Left flank pain. TECHNIQUE: CT scan of the abdomen and pelvis without contrast was performed on a multidetector hig h-resolution CT scanner. The patient was scanned without intravenous contrast. Coronal and sagittal reformatted images were obtained from the axial source images. Images were reviewed on a high-resol [employer] PACS workstation. The total exam CTDI equals 16.54 mGy and the total exam DLP equals 962.35 mG y-cm. One or the following dose reduction techniques were used: -Automated exposure control. -Adjustment of the mA and/or KV according to patient's size. -Use of iterative reconstruction technique. COMPARISON: Abdominal ultrasound 02/27/2017. FINDINGS: Lung Bases: Unremarkable. GI:. Unremarkable. Liver: Liver is enlarged at 21.9 cm in length with a diffuse decrease in attenuation consistent with steatosis. Gallbladder: Unremarkable. Pancreas: Unremarkable. Spleen: Unremarkablel Adrenals: Unremarkable. Kidneys: There is no evidence of urolithiasis or obstructive uropathy. Bladder: Unremarkable. Pelvic Organs: Unremarkable. Skeleton: Normal for age. Other: N/A IMPRESSION: 1. Hepatomegaly 21.9 cm in length with diffuse decreased attenuation consistent with steatosis. 2. No evidence of urolithiasis or obstructive uropathy. 3. Mild constipation. 4. No mass, lymphadenopathy or evidence of acute inflammatory process identified. RPTAT: AACC Physician Sheyla Date Time Electronically viewed and signed by Physician Sheyla on 06/07/2017 10:38 /
[2017-06-07] MEDS ORDERED: INSULIN REGULAR, HUMAN 100 UNIT/1 ML 3ML VIAL SC ONE (11:30)
[2017-06-07] MEDS ORDERED: DIAZEPAM 5 MG/ML SYG IV ONE (12:30)
[2017-06-07] MEDS ORDERED: DIAZ-90 PO (13:00)
[2017-06-07] MEDS ORDERED: TAMS-14 PO (13:00)
[2017-06-07] MEDS ORDERED: HYDR-902 PO (13:00)
--- NOTE | 2017-06-07 13:03 | ERD ---
ER Documentation Chief Complaint Chief Complaint lt flank pain , painful urination since last night HPI A 41-year-old female complains of sharp left flank pain at 4 AM today the pain radiates into the left lower quadrant. No hematuria or dysuria. No chest pain shortness of breath. No history of kidney stones. Pain is moderate to severe in nature. The patient does not recall any lifting pushing pulling injury to her back ROS All systems reviewed and are negative except as per history of present illness. Medications Home Meds Active Scripts Tamsulosin Hcl* (Flomax*) 0.4 Mg Cap.er.24h, 0.4 MG PO QPM, #7 CAP Prov:LECALIXTOOS,RENESTOLOS A. DO 06/07/17 Diazepam* (Valium*) 5 Mg Tablet, 5 MG PO Q8 for MUSCLE SPASMS, #10 TAB Prov:RENE JACOBSSTOLOS A. DO 06/07/17 Hydrocodone/Acetaminophen ([place] 10-325 Tablet) 1 Each Tablet, 1 TAB PO Q6H Y for PAIN, #20 TAB Prov:RENE JACOBSSTOLOS A. DO 06/07/17 Hydrocodone/Acetaminophen ([place] 5-325 Tablet) 1 Each Tablet, 1 EACH PO Q6, #10 TAB Prov:GIACOMO VELASCO PA-C 05/19/17 Ondansetron Hcl* (Zofran*) 4 Mg Tablet, 4 MG PO Q6H for NAUSEA AND/OR VOMITING, #10 TAB Prov:MONSERRAT CALHOUN DO 05/13/17 Ciprofloxacin Hcl* (Ciprofloxacin Hcl*) 500 Mg Tablet, 500 MG PO BID for 7 Days , TAB Prov:MONSERRAT CALHOUN DO 05/13/17 Hydrocodone/Acetaminophen ([place] 5-325 Tablet) 1 Each Tablet, 1 TAB PO Q6H Y for PAIN, #15 TAB Prov:MONSERRAT CALHOUN DO 05/13/17 Reported Medications Metformin Hcl* (Metformin Hcl*) 500 Mg Tablet, 500 MG PO WITH BREAKFAST DINNE, # 30 TAB 04/27/16 Fenofibrate, Micronized (Fenofibrate) 134 Mg Capsule, 134 MG PO DAILY, CAP 04/27/16 Atorvastatin Calcium (Atorvastatin Calcium) 10 Mg Tablet, 10 MG PO QHS, #30 TAB 04/27/16 Amlodipine Besylate* (Amlodipine Besylate*) 10 Mg Tablet, 10 MG PO DAILY, #30 TAB 04/27/16 Enalapril Maleate* (Enalapril Maleate*) 10 Mg Tablet, 10 MG PO DAILY, TAB 04/27/16 Carvedilol* (Carvedilol*) 6.25 Mg Tablet, 6.25 MG PO BID, #60 TAB 04/27/16 Allergies Allergies: Coded Allergies: Penicillins (Verified Allergy, Unknown, 05/19/17) ampicillin (Verified Allergy, Unknown, rash, 05/19/17) ibuprofen (Verified Allergy, Unknown, 05/19/17) Uncoded Allergies: FISH (Allergy, Unknown, 02/16/16) PMhx/Soc History of Surgery: No Anesthesia Reaction: No Hx Neurological Disorder: No Hx Respiratory Disorders: No Hx Cardiac Disorders: Yes (HTN) Hx Psychiatric Problems: No Hx Miscellaneous Medical Probl: Yes (IDDM) Hx Alcohol Use: No Hx Substance Use: No Hx Tobacco Use: Yes Smoking Status: Former smoker FmHx Family History: No coronary disease Physical Exam Vitals Vital Signs Date Time Temp Pulse Resp B/P Pulse Ox O2 Delivery O2 Flow Rate FiO2 06/07/17 09:02 98.2 112 18 156/98 98 Physical Exam Const: Well-developed, well-nourished Head: Atraumatic, normocephalic Eyes: Normal Conjunctiva, PERRLA, EOMI, normal sclera, no nystagmus ENT: Normal External Ears, Nose and Mouth, moist mucus membranes. Neck: Full range of motion. No meningismus, no lymphadenopathy. Resp: Clear to auscultation bilaterally, no wheezing, rhonchi, rales Cardio: Regular rate and rhythm, no murmurs, S1 S2 present Abd: Soft, non tender x 4, non distended. Normal bowel sounds, no guarding or rebound, no pulsitile abdominal masses or bruits Skin: No petechiae or rashes, no ecchymosis , no maculopapular rash Back: There is left flank tenderness with tender muscles in the left paraspinal region, pain is reproducible s Ext: No cyanosis, or edema, FROM x 4, normal inspection, neurovascularly intact x 4 Neur: Awake and alert, STR 5/5 x 4, sensation intact x 4, no focal findings, cerebellum intact Psych: Normal Mood and Affect Result Diagram: 06/07/1750 06/07/1750 Results 24 hrs Laboratory Tests Test 06/07/17 09:50 06/07/17 12:57 White Blood Count 12.310^3/ul Red Blood Count 4.4610^6/ul Hemoglobin 14.7g/dl Hematocrit 41.8% Mean Corpuscular Volume 93.7fl Mean Corpuscular Hemoglobin 33.0pg Mean Corpuscular Hemoglobin Concent 35.2g/dl Red Cell Distribution Width 12.4% Platelet Count 54232^3/UL Mean Platelet Volume 9.7fl Neutrophils % 85.2% Lymphocytes % 12.4% Monocytes % 1.7% Eosinophils % 0.0% Basophils % 0.2% Nucleated Red Blood Cells % 0.0/100WBC Neutrophils # 10.510^3/ul Lymphocytes # 1.510^3/ul Monocytes # 0.210^3/ul Eosinophils # 0.010^3/ul Basophils # 0.010^3/ul Nucleated Red Blood Cells # 0.010^3/ul Urine Color COLORLESS Urine Clarity CLEAR Urine pH 6.0 Urine Specific [place] 1.026 Urine Ketones TRACEmg/dL Urine Nitrite NEGATIVEmg/dL Urine Bilirubin NEGATIVEmg/dL Urine Urobilinogen NEGATIVEmg/dL Urine Leukocyte Esterase NEGATIVELeu/ul Urine Microscopic RBC 0/HPF Urine Microscopic WBC 2/HPF Urine Bacteria FEW/HPF Urine Hemoglobin NEGATIVEmg/dL Urine Glucose 3+mg/dL Urine Total Protein 1+mg/dl Sodium Level 134mmol/L Potassium Level 4.5mmol/L Chloride Level 96mmol/L Carbon Dioxide Level 20mmol/L Anion Gap 23 Blood Urea Nitrogen 17mg/dl Creatinine 0.66mg/dl Glucose Level 562mg/dl Calcium Level 10.3mg/dl Bedside Glucose 307mg/dL Current Medications Medications (Trade) Dose Ordered Sig/Thuan Route PRN Reason Start Time Stop Time Status Last Admin Dose Admin Sodium Chloride (NS) 1,000 ml @ 1,000 mls/hr Q1H STAT IV 06/07/17 09:44 06/07/17 10:43 DC 06/07/17 09:52 Hydromorphone HCl (Dilaudid) 1 mg ONCE STAT IV 06/07/17 09:44 06/07/17 09:45 DC 06/07/17 09:52 Ondansetron HCl (Zofran Inj) 4 mg ONCE STAT IV 06/07/17 09:44 06/07/17 09:45 DC 06/07/17 09:52 Hydromorphone HCl (Dilaudid) 1 mg ONCE STAT IV 06/07/17 10:49 06/07/17 10:51 DC 06/07/17 10:58 Ondansetron HCl (Zofran Inj) 4 mg ONCE STAT IV 06/07/17 10:49 06/07/17 10:51 DC 06/07/17 10:58 Insulin Human Regular (Humulin R) 12 unit ONCE ONCE SC 06/07/17 11:30 06/07/17 11:31 DC 06/07/17 11:17 Diazepam (Valium) 5 mg ONCE ONCE IV 06/07/17 12:30 06/07/17 12:31 DC 06/07/17 12:17 Procedures/MDM PROCEDURE: CT Abdomen and Pelvis without contrast. CLINICAL INDICATION: Left flank pain. TECHNIQUE: CT scan of the abdomen and pelvis without contrast was performed on a multidetector high-resolution CT scanner. The patient was scanned without intravenous contrast. Coronal and sagittal reformatted images were obtained from the axial source images. Images were reviewed on a high-resolution PACS workstation. The total exam CTDI equals 16.54 mGy and the total exam DLP equals 962.35 mGy-cm. One or the following dose reduction techniques were used: -Automated exposure control. -Adjustment of the mA and/or KV according to patient's size. -Use of iterative reconstruction technique. COMPARISON: Abdominal ultrasound 02/27/2017. FINDINGS: Lung Bases: Unremarkable. GI:. Unremarkable. Liver: Liver is enlarged at 21.9 cm in length with a diffuse decrease in attenuation consistent with steatosis. Gallbladder: Unremarkable. Pancreas: Unremarkable. Spleen: Unremarkablel Adrenals: Unremarkable. Kidneys: There is no evidence of urolithiasis or obstructive uropathy. Bladder: Unremarkable. Pelvic Organs: Unremarkable. Skeleton: Normal for age. Other: N/A IMPRESSION: 1. Hepatomegaly 21.9 cm in length with diffuse decreased attenuation consistent with steatosis. 2. No evidence of urolithiasis or obstructive uropathy. 3. Mild constipation. 4. No mass, lymphadenopathy or evidence of acute inflammatory process identified. RPTAT: AAC Harsha Benavides Physician Date Time Electronically viewed and signed by Harsha Benavides Physician on 06/07/2017 10: 38 JH/ CC: ELODIA JACOBS DO Patient received insulin IV fluids. Recheck blood sugars 307. Patient has no evidence of kidney stone however clinically she presents that way. We will treat with some pain medication muscle relaxer and Flomax Departure Diagnosis: Primary Impression: Flank pain Condition: Stable Patient Instructions: Flank Pain, Uncertain Cause Referrals: JANINA WOODALL MD (PCP) ELODIA JACOBS DO Jun 07, 2017 13:03
[2017-06-07 13:11] VITALS: BP 140/78; PULSE 78; RESP 17
== END 2017-06-07 13:13 | disposition home or self-care (01) ==
LOC: FTE 08:59
DX: R10.9 Unspecified abdominal pain (principal); I10 Essential (primary) hypertension; E11.9 Type 2 diabetes mellitus without complications; Z79.84 Long term (current) use of oral hypoglycemic drugs; Z87.891 Personal history of nicotine dependence
CPT/HCPCS: 36415; 74176; 80048; 81001; 82962; 85025; 96361; 96372; 96374; 96375; 96376; J1170; J1815; J2405; J3360; J7030; Z7502

== ENCOUNTER 2017-08-20 05:43 | Emergency (ER) | END 2017-08-20 08:16 | disposition home or self-care (01) ==

== ENCOUNTER 2017-10-27 22:30 | Emergency (ER) | END 2017-10-28 03:41 | disposition home or self-care (01) ==

== ENCOUNTER 2018-01-04 09:59 | Emergency (ER) | END 2018-01-04 12:38 | disposition home or self-care (01) ==

== ENCOUNTER 2018-03-10 17:17 | Emergency (ER) | END 2018-03-10 20:33 | disposition home or self-care (01) ==

== ENCOUNTER 2018-04-14 02:17 | Inpatient (IN) | END 2018-04-14 13:52 | disposition home or self-care (01) | DRG 305 ==

== ENCOUNTER 2018-04-23 09:35 | Emergency (ER) | END 2018-04-23 14:40 | disposition home or self-care (01) ==

== ENCOUNTER 2018-05-29 17:12 | Emergency (ER) | END 2018-05-29 20:41 | disposition home or self-care (01) ==

== ENCOUNTER 2018-07-07 17:46 | Emergency (ER) | END 2018-07-07 18:54 | disposition home or self-care (01) ==

== ENCOUNTER 2018-10-01 21:26 | Inpatient (IN) | payer OTHER ==
[~2018-10-01] VITALS: Ht 154.9 cm; Wt 76.0 kg
[~2018-10-01 21:26] MED LIST changes: +CARV12.579 PO; -CARV6.2579 PO; -CIPR500T4 PO; +HYDR-3980 PO; -HYDR-906 PO; +INSU100I12 SQ; +LANT3I SC; +METF500T24 PO; -METF500T4 PO; -ONDA4TAB8 PO; +TRAM50TA2 PO; +ZOLP10TA5 PO
[2018-10-01] MEDS ORDERED: ACETAMINOPHEN 325 MG TAB PO PRN (23:30)
[2018-10-01] MEDS ORDERED: ONDANSETRON 4 MG INJ IV PRN (23:30)
[2018-10-02 00:53] VITALS: PULSE 102
[2018-10-02] MEDS ORDERED: HYDROCODONE/APAP (10/325) TAB PO PRN (01:00)
[2018-10-02] MEDS ORDERED: NON-FORMULARY/PATIENT OWN MED (Insulin Lispro (Humalog Kwikpen U-100) 5 UNIT) SQ SCH (01:00)
[2018-10-02] MEDS ORDERED: traMADol 50 MG TAB PO PRN (01:00)
[2018-10-02] MEDS ORDERED: ONDANSETRON 4 MG INJ IV PRN (01:00)
[2018-10-02] MEDS ORDERED: NACL 0.9% 3 ML SYG IV SCH (01:00)
[2018-10-02] MEDS ORDERED: ZOLPIDEM 5 MG TAB PO PRN (01:00)
[2018-10-02] MEDS ORDERED: ACETAMINOPHEN 325 MG TAB PO PRN (01:00)
[2018-10-02] MEDS ORDERED: ALBUTEROL/IPRATROPIUM (NEB) 3 ML AMP HHN PRN (01:00)
[2018-10-02] MEDS ORDERED: GLUCOSE GEL 15 GRAM TUBE BUCCAL PRN (01:30)
[2018-10-02] MEDS ORDERED: GLUCAGON 1 MG INJ IM PRN (01:30)
[2018-10-02] MEDS ORDERED: DEXTROSE 50% 50 ML SYRINGE IV PRN ×2 (01:30)
[2018-10-02] MEDS ORDERED: GLUCOSE GEL 15 GRAM TUBE PO PRN ×2 (01:30)
--- NOTE | 2018-10-02 01:39 | ERD ---
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 The patient reports t hat her last known well time was last night before going to sleep. When the patient woke up this morning, she felt off. She has been slurring her words all day and has felt off balance. Over the course of the last 2-3 hours, the patient also developed a left-sided headache. The patient denies facial droop. She is alert and oriented and able to answer questions. She does not endorse any other focal deficits. She does not endorse any weakness or numbness or tingling to the face or extremities. The patient denies feeling sick recently. The patient denies fever or chills. The patient does not endorse neck or back pain. The patient denies lightheadedness or dizziness. The patient has had no chest pain or trouble breathing. The patient denies nausea or vomiting. The patient denies abdominal pain. The patient denies changes to bowel movements or urination. ROS All systems reviewed and are negative except as per history of present illness. Medications Home Meds Active Scripts Tramadol HCl (Tramadol HCl) 50 Mg Tablet, 50 MG PO Q6 PRN for PAIN, #12 TAB Prov:KYMBERLY KLINE PA-C 07/07/18 Hydrocodone/Acetaminophen ([place] 10-325 Tablet) 1 Each Tablet, 1 TAB PO Q6H PRN for PAIN, #4 TAB Prov:SHANA MONTANEZ MD 05/29/18 Carvedilol* (Carvedilol*) 12.5 Mg Tablet, 12.5 MG PO BID, #60 TAB Prov:JACKY ADAME V. MOLD WASHER 04/14/18 Insulin Lispro (Humalog Kwikpen U-100) 100 Unit/1 Ml Insuln.pen, 5 UNIT SQ TID WITH MEALS, #1 SYR Provide patient with #100 PEN needles,#100 Lancets,#100 test strips Sugar check frequency 3 times a day. Prov:ADAMENANCYAJCKY V. MOLD WASHER 04/14/18 Metformin Hcl* (Metformin Hcl*) 500 Mg Tablet, 1000 MG PO WITH BREAKFAST DINNE, #30 TAB Prov:JACKY ADAME NP 04/14/18 Hydrocodone/Acetaminophen ([place] 10-325 Tablet) 1 Each Tablet, 1 TAB PO Q6H PRN for PAIN, #7 TAB Prov:JONATHAN VICTORIA MD 03/10/18 Reported Medications Insulin Glargine* (Lantus*) 100 Unit/Ml Soln, 40 UNIT SC DAILY, #1 VIAL 04/14/18 Zolpidem Tartrate* (Zolpidem Tartrate*) 10 Mg Tablet, 10 MG PO QHS PRN for INSOMNIA, #30 TAB 04/14/18 Fenofibrate, Micronized (Fenofibrate) 134 Mg Capsule, 134 MG PO DAILY, CAP 04/27/16 Atorvastatin Calcium (Atorvastatin Calcium) 10 Mg Tablet, 10 MG PO QHS, #30 TAB 04/27/16 Amlodipine Besylate* (Amlodipine Besylate*) 10 Mg Tablet, 10 MG PO DAILY, #30 TAB 04/27/16 Enalapril Maleate* (Enalapril Maleate*) 10 Mg Tablet, 10 MG PO DAILY, TAB 04/27/16 Allergies Allergies: Coded Allergies: peanut (Verified Allergy, Severe, warts, vomiting, throat closing, 04/14/18) lactase (Verified Allergy, Mild, itchy, "small dots on whole body", 04/14/18) orange (Verified Allergy, Mild, itchy, vomiting, 04/14/18) Fish Containing Products (Unverified Allergy, Unknown, 07/07/18) Has allergy to shellfish, but tuna is fine Penicillins (Unverified Allergy, Unknown, 07/07/18) ampicillin (Unverified Allergy, Unknown, rash, 07/07/18) ibuprofen (Unverified Allergy, Unknown, 04/14/18) PMhx/Soc History of Surgery: Yes (appendectomy) Anesthesia Reaction: No Hx Neurological Disorder: Yes (hemorrhagic stroke) Hx Respiratory Disorders: No Hx Cardiac Disorders: Yes (HTN) Hx Psychiatric Problems: No Hx Miscellaneous Medical Probl: Yes (HTN, DM, hemorrhagic CVA s/p 2 months ago with residual L-sided weakness.) Hx Alcohol Use: No Hx Substance Use: No Hx Tobacco Use: Yes Smoking Status: Current some day smoker FmHx Family History: No diabetes Physical Exam Vitals Vital Signs Date Temp Pulse Resp B/P (MAP) Pulse Ox O2 O2 Flow FiO2 Time Delivery Rate 10/01/18 98.3 109 16 177/117 100 21:43 (137) Physical Exam Const: No apparent distress, well-developed, well-nourished Head: Normocephalic, Atraumatic Eyes: Normal Conjunctiva. Extraocular movements intact. Pupils equal, round and reactive to light ENT: Normal External Ears, Nose and Mouth. Neck: Full range of motion. No meningismus. Resp: Clear to auscultation bilaterally, No wheezes, rales or rhonchi Cardio: Regular rhythm. Tachycardia. No murmurs, rubs or gallops Abd: Soft, non tender, non distended. Normal bowel sounds Skin: No petechiae or rashes Back: No midline tenderness. No CVA tenderness Ext: No cyanosis, or edema Neur: Awake and alert, oriented 4. Cranial nerves intact. No facial droop. Mild dysarthria. Normal strength, sensation and coordination. Psych: Normal Mood and Affect Result Diagram: 10/01/18220710/01/182207 Results 24 hrs Laboratory Tests Test 10/01/18 22:08 10/01/18 22:37 White Blood Count 11.8 10^3/ul Red Blood Count 3.97 10^6/ul Hemoglobin 13.5 g/dl Hematocrit 38.9 % Mean Corpuscular Volume 98.0 fl Mean Corpuscular Hemoglobin 34.0 pg Mean Corpuscular Hemoglobin Concent 34.7 g/dl Red Cell Distribution Width 12.6 % Platelet Count 473 10^3/UL Mean Platelet Volume 8.9 fl Immature Granulocytes % 0.500 % Neutrophils % 52.3 % Lymphocytes % 38.8 % Monocytes % 7.7 % Eosinophils % 0.3 % Basophils % 0.4 % Nucleated Red Blood Cells % 0.0 /100WBC Immature Granulocytes # 0.060 10^3/ul Neutrophils # 6.2 10^3/ul Lymphocytes # 4.6 10^3/ul Monocytes # 0.9 10^3/ul Eosinophils # 0.0 10^3/ul Basophils # 0.1 10^3/ul Nucleated Red Blood Cells # 0.0 10^3/ul Prothrombin Time 13.2 Sec Prothrombin Time Ratio 1.0 INR International Normalized Ratio 0.99 Activated Partial Thromboplast Time 27.1 Sec Urine Color YELLOW Urine Clarity CLEAR Urine pH 6.0 Urine Specific [place] 1.042 Urine Ketones NEGATIVE mg/dL Urine Nitrite NEGATIVE mg/dL Urine Bilirubin NEGATIVE mg/dL Urine Urobilinogen NEGATIVE mg/dL Urine Leukocyte Esterase NEGATIVE Yesi/ul Urine Microscopic RBC 1 /HPF Urine Microscopic WBC 2 /HPF Urine Squamous Epithelial Cells FEW /HPF Urine Bacteria FEW /HPF Urine Hemoglobin NEGATIVE mg/dL Urine Glucose 3+ mg/dL Urine Total Protein 2+ mg/dl Sodium Level 137 mmol/L Potassium Level 3.8 mmol/L Chloride Level 99 mmol/L Carbon Dioxide Level 25 mmol/L Anion Gap 13 Blood Urea Nitrogen 13 mg/dl Creatinine 0.40 mg/dl Est Glomerular Filtrat Rate mL/min > 60 mL/min Glucose Level 307 mg/dl Hemoglobin A1c 10.9 % Calcium Level 10.4 mg/dl Troponin I < 0.012 ng/ml Triglycerides Level 389 mg/dl Cholesterol Level 275 mg/dl LDL Cholesterol, Calculated 147 mg/dl HDL Cholesterol 50 mg/dl Cholesterol/HDL Ratio 5.5 RATIO Urine Opiates Screen Positive Urine Barbiturates Negative Urine Amphetamines Screen Negative Urine Benzodiazepines Screen Negative Urine Cocaine Screen Negative Urine Cannabinoids Negative Bedside Glucose 255 mg/dL Procedures/MDM MDM The patient's presentation warrants further investigation. Previous medical rec ords, if available, were reviewed. LABS The patient's laboratory testing was obtained and reviewed. No emergent treatment was required unless described below. CBC: Mild leukocytosis without shift, likely reactive. Mild thrombocytosis, likely reactive. No anemia. Chemistry: No E/o severe acidosis or alkalosis or renal failure. Hyperglycemia without evidence of DKA. PT/INR: No E/o significant coagulopathy Troponin: No E/o acute ischemia Urine: No E/o acute infection or hematuria Tox: No E/o alcohol abuse. E/o opiate use. EKG EKG read by me: Rate/Rhythm: Sinus tachycardia at a rate of 117 bpm Intervals: Normal [place]: Normal Impression: Nonspecific repolarization changes without evidence of acute ischemia. Sinus tachycardia. IMAGING Imaging and Radiology interpretation reviewed. CXR FINDINGS: The cardiomediastinal silhouette is within normal limits. The lungs are clear. No signs of pleural fluid or pneumothorax are seen. The osseous structures and soft tissues are unremarkable. IMPRESSION: No evidence for active cardiopulmonary disease. Electronically viewed and signed by Anny Irwin MD, MD on 10/01/2018 22:13 CT Head FINDINGS: The ventricles and cortical sulci are within normal limits for patient's age. There are small chronic lacunar infarcts within the left basal ganglia. There is no mass effect or midline shift. There is no intracranial hemorrhage or abnormal extra-axial collection. The calvarium is intact. There is no evidence of fracture. Visualized paranasal sinuses and mastoid air cells are clear. IMPRESSION: No acute intracranial abnormality identified. Small chronic lacunar infarcts within the left basal ganglia. A call report made to Dr. Woo at 10:55 p.m. Electronically viewed and signed by .Owen Parisi MD, MD on 10/01/2018 23:00 TREATMENT/DISPOSITION The patient presents with concerns of a repeat stroke. There is no evidence of acute cerebral ischemia or intracranial hemorrhage on the CT scan. The patient's NIH stroke scale is 1 for mild dysarthria. The patient was given a dose of aspirin in the emergency department. Complex migraine is also a possibility. The patient also did not tell me about her opiate use, which could also cause slowing and dysarthria. However, given her history, I do feel the patient requires further assessment in the hospital. The patient does have significant cardiac risk factors including hypertension, hyperlipidemia, diabetes and previous strokes. The patient does not require medication for emergent blood pressure management. At this time, I feel that the patient requires admission for further evaluation and management. The patient will be admitted to panel in accordance with the patient's insurance. The patient was accepted by Dr. Borrero to telemetry at 9:42 PM on October 01, 2018 Disclaimer: Inadvertent spelling and grammatical errors are likely due to EHR/dictation software use and do not reflect on the overall quality of patient care. Note that the electronic time recorded on this note does not necessarily reflect the actual time of the patient encounter. Departure Diagnosis: Primary Impression: Dysarthria Additional Impressions: Headache Headache type: unspecified Headache chronicity pattern: acute headache Intractability: not intractable Qualified Codes: R51 - Headache Leukocytosis Leukocytosis type: unspecified Qualified Codes: D72.829 - Elevated white blood cell count, unspecified Thrombocytosis Hyperglycemia Opiate use Hypertriglyceridemia Hypercholesterolemia Condition: Serious ANNY WOO MD Oct 02, 2018 01:39
[2018-10-02 01:40] VITALS: Ht 154.9 cm; Wt 76.0 kg
[2018-10-02] MEDS ORDERED: ACCU-CHEK XX SCH (02:00)
[2018-10-02 04:00] VITALS: BP 140/98; PULSE 80; RESP 19
--- NOTE | 2018-10-02 04:23 | HP ---
Date/Time of Note Date/Time of Note DATE: 10/02/18 TIME: 04:05 Assessment/Plan VTE Prophylaxis SCD applied (from Nsg): Yes Pharmacological prophylaxis: NA/contraindicated Pharm contraindication: other (History of hemorrhagic stroke) Lines/Catheters IV Catheter Type (from Nrsg): Saline Lock Assessment/Plan Assessment/Plan 1. 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 -Head CT shows chronic small lacunar infarct otherwise no acute findings -Will obtain CT angio of the head and neck as well as MRI of the brain and a 2D echo -Continue statin -Patient has not been on aspirin because of the history of hemorrhagic stroke. -Neurology consult -Need for initiation of aspirin per Neurology 2. Type 1 diabetes with hyperglycemia, poorly controlled (A1c ~11): -No DKA -Insulin and IV fluid 3. Hypertension: BP not at goal -Adjust antihypertensives as needed 4. Dyslipidemia: will increase dose of statin given elevated triglyceride and cholesterol Result Diagram: 10/02/18 0206 10/02/18 0206 Results 24hrs Laboratory Tests Test 10/01/18 22:08 10/01/18 22:37 10/02/18 01:23 10/02/18 02:06 White Blood Count 11.8 H 11.5 H Red Blood Count 3.97 L 4.00 L Hemoglobin 13.5 13.7 Hematocrit 38.9 39.4 Mean Corpuscular Volume 98.0 98.5 Mean Corpuscular 34.0 H 34.3 H Hemoglobin Mean Corpuscular 34.7 34.8 Hemoglobin Concent Red Cell Distribution 12.6 12.6 Width Platelet Count 473 H 447 H Mean Platelet Volume 8.9 8.9 Immature Granulocytes % 0.500 H 0.600 H Neutrophils % 52.3 55.3 Lymphocytes % 38.8 35.5 Monocytes % 7.7 7.9 Eosinophils % 0.3 0.3 Basophils % 0.4 0.4 Nucleated Red Blood 0.0 0.0 Cells % Immature Granulocytes # 0.060 H 0.070 H Neutrophils # 6.2 6.3 Lymphocytes # 4.6 H 4.1 H Monocytes # 0.9 0.9 Eosinophils # 0.0 0.0 Basophils # 0.1 0.1 Nucleated Red Blood 0.0 0.0 Cells # Prothrombin Time 13.2 Prothrombin Time Ratio 1.0 INR International 0.99 Normalized Ratio Activated 27.1 Partial Thromboplast Time Urine Color YELLOW Urine Clarity CLEAR Urine pH 6.0 Urine Specific [place] 1.042 H Urine Ketones NEGATIVE Urine Nitrite NEGATIVE Urine Bilirubin NEGATIVE Urine Urobilinogen NEGATIVE Urine Leukocyte Esterase NEGATIVE Urine Microscopic RBC 1 Urine Microscopic WBC 2 Urine Squamous FEW Epithelial Cells Urine Bacteria FEW A Urine Hemoglobin NEGATIVE Urine Glucose 3+ H Urine Total Protein 2+ H Sodium Level 137 139 Potassium Level 3.8 4.1 Chloride Level 99 102 Carbon Dioxide Level 25 23 Anion Gap 13 14 H Blood Urea Nitrogen 13 14 Creatinine 0.40 L 0.36 L Est Glomerular Filtrat > 60 > 60 Rate mL/min Glucose Level 307 H 262 H Hemoglobin A1c 10.9 H Calcium Level 10.4 H 10.4 H Troponin I < 0.012 < 0.012 Triglycerides Level 389 H Cholesterol Level 275 H LDL Cholesterol, 147 Calculated HDL Cholesterol 50 Cholesterol/HDL Ratio 5.5 Urine Opiates Screen Positive Urine Barbiturates Negative Urine Amphetamines Negative Screen Urine Benzodiazepines Negative Screen Urine Cocaine Screen Negative Urine Cannabinoids Negative Bedside Glucose 255 H 243 H Magnesium Level 1.7 Total Bilirubin 0.1 L Direct Bilirubin 0.00 Indirect Bilirubin 0.1 Aspartate Amino 24 Transf (AST/SGOT) Alanine 32 Aminotransferase (ALT/SG PT) Alkaline Phosphatase 68 Creatine Kinase 22 L Creatine Kinase Index 1.0 Creatinine Kinase MB < 0.22 (Mass) Total Protein 8.0 Albumin 4.4 Globulin 3.60 H Albumin/Globulin Ratio 1.22 Thyroid Stimulating 0.568 Hormone (TSH) HPI/ROS Admit Date/Time Admit Date/Time Oct 01, 2018 at 23:08 Hx of Present Illness This is a 42-year-old female with a history of hypertension, type 1 diabetes, dyslipidemia, hemorrhagic stroke who presented to ER complaining of slurred speech and left arm heaviness. She states she was diagnosed with hemorrhagic stroke about a year and half ago from which she had recovered fully. Yesterday she noticed that her blood pressure was around 200/130. Around the same time, she was noticed to have slurred speech. She says she also felt some heaviness in her left arm. Denied facial droop, focal weakness/numbness, visual disturbance, headache, seizure-like activity. She says she has been compliant with her blood pressure meds, insulin and statin. She has not been on aspirin because of the history of hemorrhagic stroke. In ER, BP 177/117, HR 106. Glu > 300, A1c ~ 11, elevated Tg and cholesterol. Head Ct showed Small chronic lacunar infarcts within the left basal ganglia. . . PMH/Family/Social Past Medical History Medical History: diabetes, high cholesterol, hypertension, other (Hemorrhagic stroke) Medications Current Medications Ondansetron HCl (Zofran Inj) 4 mg ER BRIDGE PRN IV NAUSEA/VOMITING Last administered on 10/01/18at 23:41; Admin Dose 4 MG; Start 10/01/18 at 23:30; Stop 10/02/18 at 23:29 Acetaminophen (Tylenol Tab) 650 mg ER BRIDGE PRN PO .MILD PAIN 1-3 OR TEMP Last administered on 10/01/18at 23:39; Admin Dose 650 MG; Start 10/01/18 at 23:30; Stop 10/02/18 at 23:29 IV Flush (NS 3 ml) 3 ml PER PROTOCOL IV ; Start 10/02/18 at 01:00 Ondansetron HCl (Zofran Inj) 4 mg Q6H PRN IV NAUSEA/VOMITING; Start 10/02/18 at 01:00 Acetaminophen (Tylenol Tab) 650 mg Q6H PRN PO .PAIN 1-3 OR TEMP; Start 10/02/18 at 01:00 Albuterol/ Ipratropium (Duoneb) 3 ml Q2H RESP THERAPY PRN HHN SHORTNESS OF B REATH; Start 10/02/18 at 01:00 Amlodipine Besylate (Norvasc) 10 mg DAILY PO ; Start 10/02/18 at 09:00 Atorvastatin Calcium (Lipitor) 10 mg QHS PO ; Start 10/02/18 at 21:00 Carvedilol (Coreg) 12.5 mg BID PO Last administered on 10/02/18at 01:30; Admin Dose 12.5 MG; Start 10/02/18 at 01:00 Enalapril Maleate (Vasotec) 10 mg DAILY PO ; Start 10/02/18 at 09:00 Acetaminophen/ Hydrocodone Bitart ([place] (10/325)) 1 tab Q6H PRN PO PAIN Last administered on 10/02/18at 02:24; Admin Dose 1 TAB; Start 10/02/18 at 01:00 Insulin Glargine (Lantus) 40 units DAILY SC ; Start 10/02/18 at 09:00 Tramadol HCl (Ultram) 50 mg Q6 PRN PO PAIN; Start 10/02/18 at 01:00 Zolpidem Tartrate (Ambien) 10 mg QHS PRN PO INSOMNIA Last administered on 10/02/18at 02:27; Admin Dose 10 MG; Start 10/02/18 at 01:00 Diagnostic Test (Pha) (Accu-Chek) 1 ea 02 XX Last administered on 10/02/18at 01:45; Admin Dose 1 EA; Start 10/02/18 at 02:00 Insulin Aspart (Novolog Insulin Pen) NOVOLOG *MODERATE* ALGORITHM WITH MEALS BEDTIME SC ; Start 10/02/18 at 07:55 Insulin Aspart (Novolog Insulin Pen) 5 unit WITH MEALS SC ; Start 10/02/18 at 07:55 Fenofibrate (Tricor) 145 mg DAILY PO ; Start 10/02/18 at 09:00 Miscellaneous Information 1 ea NOTE XX ; Start 10/02/18 at 01:30 Glucose (Glutose) 15 gm Q15M PRN PO DECREASED GLUCOSE; Start 10/02/18 at 01:30 Glucose (Glutose) 22.5 gm Q15M PRN PO DECREASED GLUCOSE; Start 10/02/18 at 01:30 Dextrose (D50w Syringe) 25 ml Q15M PRN IV DECREASED GLUCOSE; Start 10/02/18 at 01:30 Dextrose (D50w Syringe) 50 ml Q15M PRN IV DECREASED GLUCOSE; Start 10/02/18 at 01:30 Glucagon (Glucagen) 1 mg Q15M PRN IM DECREASED GLUCOSE; Start 10/02/18 at 01:30 Glucose (Glutose) 15 gm Q15M PRN BUCCAL DECREASED GLUCOSE; Start 10/02/18 at 01:30 Coded Allergies: peanut (Verified Allergy, Severe, warts, vomiting, throat closing, 04/14/18) lactase (Verified Allergy, Mild, itchy, "small dots on whole body", 04/14/18) orange (Verified Allergy, Mild, itchy, vomiting, 04/14/18) Fish Containing Products (Unverified Allergy, Unknown, 07/07/18) Has allergy to shellfish, but tuna is fine Penicillins (Unverified Allergy, Unknown, 07/07/18) ampicillin (Unverified Allergy, Unknown, rash, 07/07/18) ibuprofen (Unverified Allergy, Unknown, 04/14/18) Family History Significant Family History: other (Mother of PR a year ago and father of stroke 1 week ago) Social History Alcohol Use: occasionally Smoking Status: Current some day smoker Drug Use: none Exam/Review of Systems Vital Signs Vitals Vital Signs Date Temp Pulse Resp B/P (MAP) Pulse Ox O2 O2 Flow FiO2 Time Delivery Rate 10/02/18 102 00:53 10/02/18 16 161/111 98 Room Air 00:38 (128) 10/01/18 98.3 21:43 Exam Constitutional: alert, oriented, well developed Head: normocephalic, atraumatic Eyes: EOMI, PERRL Respiratory: clear to auscultation, normal air movement Cardiovascular: nl pulses, other (Tachycardic with regular rhythm) Gastrointestinal: soft, non-tender Extremities: normal pulses Neurological: nl mental status, nl speech, nl strength, other (Sensation slightly decreased on the left upper and lower extremities.) KYMBERLY ROJAS MD Oct 02, 2018 04:20
[2018-10-02 04:30] VITALS: PULSE 102
[2018-10-02 07:41] VITALS: BP 141/86; PULSE 98; RESP 20
[2018-10-02] MEDS ORDERED: INSULIN ASPART [NOVOLOG] 3 ML PEN SC SCH ×2 (07:55)
[2018-10-02 08:00] VITALS: PULSE 89
[2018-10-02] MEDS ORDERED: SUMATRIPTAN 6 MG/0.5 ML INJ SC ONE (08:00)
[2018-10-02] MEDS ORDERED: IOHEXOL 350MG/ML 50 ML BTL ONE (08:55)
[2018-10-02] MEDS ORDERED: SOD CHLORIDE 0.9% 100 ML ONE (08:55)
[2018-10-02] MEDS ORDERED: IOHEXOL 100 ML ONE (08:55)
[2018-10-02] MEDS ORDERED: INSULIN GLARGINE [LANTus] (100 UNITS/ML) SYG SC SCH (09:00)
[2018-10-02] MEDS ORDERED: ENALAPRIL 10 MG TAB PO SCH (09:00)
[2018-10-02] MEDS ORDERED: FENOFIBRATE 145 MG TAB PO SCH (09:00)
[2018-10-02] MEDS ORDERED: AMLODIPINE 10 MG TAB PO SCH (09:00)
[2018-10-02] MEDS ORDERED: NON-FORMULARY/PATIENT OWN MED (Fenofibrate, Micronized (Fenofibrate) 134 MG) PO SCH (09:00)
[2018-10-02 11:49] VITALS: BP 125/88; PULSE 89; RESP 20
--- NOTE | 2018-10-02 14:39 | RADRPT ---
Echocardiogram Report Patient Name: Caren ROCHE ID: [id number] : 1975 (42y 10m)Study Date: 10/02/2018 9:44:17 AM Gender: FAccession #: [id number] Tech: [facility] [place] Location: Ref.Physician: KYMBERLY ROJAS Height(Cm): 163 BSA: 1.86Weight(Kg): 76.7 Quality: GoodAccount #: Procedures: Echocardiographic Report: Transthoracic echocardiogram with 2D, M-Mode, and Doppler examination, no subcostal images. Indications: Cerebrovascular Accident. Measurements: 2D/M Mode Doppler Measurement Value Normal Range Measurement Value Normal Range LVIDd 2D 3.7 [ 3.8 - 5.2 ] cm AV Peak Jonatan 1.6 [ 100.0 - 170.0 ] cm/se c LVIDs 2D 2.5 [ 2.2 - 3.5 ] cm AV Peak PG 11.0 [ 2.0 - 9.0 ] mmHg LVPWd 2D 1.1 [ 0.6 - 0.9 ] cm LVOT Peak Jonatan 0.8 [ 70.0 - 110.0 ] cm/sec IVSd 2D 1.1 [ 0.6 - 0.9 ] cm LVOT Peak PG 3.0 [ 2.0 - 6.0 ] mmHg AoR Diam 2D 2.9 [ 2.3 - 3.1 ] cm MV E Peak Jonatan 0.8 [ 60.0 - 130.0 ] cm/sec EDV 2D 57.8 [ 46.0 - 106.0 ] ml MV A Peak Jonatan 1.0 [ 100.0 - 120.0 ] cm/se c ESV 2D 22.1 [ 14.0 - 42.0 ] ml MV E/A 0.8 [ 0.8 - 1.5 ] ratio EF 2D 61.8 [ 54.0 - 74.0 ] percent MV PHT 67.0 [ 20.0 - 100.0 ] msec LA Dimen 2D 3.2 [ 2.7 - 3.8 ] cm MV Decel Time 227 [ 104 - 258 ] msec MV Decel [place] 3 Lat E` Jonatan 0.1 [ 10.0 - 15.0 ] cm/sec Lateral E/E` 7.0 [ 1.0 - 2.0 ] ratio Med E` Jonatan 0.1 cm/sec MV E/A 0.8 [ 0.8 - 1.5 ] ratio MVA PHT 3.3 [ 2.0 - 4.0 ] cm2 PV Peak Jonatan 1.1 [ 40.0 - 80.0 ] cm/sec PV Peak PG 5.0 mmHg Findings: Left Ventricle: Normal left ventricular systolic function. Normal left ventricular cavity size. Mild concentric left ventricular hypertrophy. Ejection fraction is visually estimated at 65 %. Tissue Doppler/Mitral Doppler indices are consistent with impaired relaxation (Stage I diastolic dysfunction). E/E'= 13. Right Ventricle: Normal right ventricular size. Left Atrium: The left atrium is normal in size. Right Atrium: The right atrium is normal in size. Atrial Septum: Not well visualized. Mitral Valve: Mild mitral annular calcification. Trace mitral regurgitation. Aortic Valve: No significant aortic stenosis or insufficiency. Aortic cusps appear mildly calcified. Trileaflet aortic valve. Tricuspid Valve: Normal appearance and function of the tricuspid valve with trace physiologic regurgitation. Pulmonic Valve: Normal pulmonic valve appearance. No evidence of pulmonic regurgitation. Pericardium: Normal pericardium with no significant pericardial effusion. Aorta: Normal aortic root. Ascending aorta is normal. IVC: The IVC is not well visualized. Pulmonary Artery: Normal pulmonary artery size. Conclusions: Normal left ventricular systolic function. Normal left ventricular cavity size. Mild concentric left ventricular hypertrophy. Ejection fraction is visually estimated at 65 %. Tissue Doppler/Mitral Doppler indices are consistent with impaired relaxation (Stage I diastolic dysfunction). E/E'= 13. Mild mitral annular calcification. Trace mitral regurgitation. No significant aortic stenosis or insufficiency. Aortic cusps appear mildly calcified. Trileaflet aortic valve. Normal appearance and function of the tricuspid valve with trace physiologic regurgitation. Electronically Signed By: Bryson Martinez 2018-10-02 14:38:46 PST
--- NOTE | 2018-10-02 18:02 | DS ---
Date/Time of Note Date/Time of Note DATE: 10/02/18 TIME: 18:00 Discharge Summary Admission/Discharge Info Admit Date/Time Oct 01, 2018 at 23:08 Discharge Date/Time Oct 02, 2018 at 12:14 Discharge Diagnosis Patient left AMA 1. 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 -Head CT shows chronic small lacunar infarct otherwise no acute findings -Patient was to have CT angio of the head and neck as well as MRI of the brain and a 2D echo -Patient has not been on aspirin because of the history of hemorrhagic stroke. -Neurology consult was to be obtained -Need for initiation of aspirin per Neurology 2. Type 1 diabetes with hyperglycemia, poorly controlled (A1c ~11): -No DKA -Insulin and IV fluid 3. Hypertension: BP not at goal -Adjust antihypertensives as needed 4. Dyslipidemia: Was going to increase dose of statin given elevated triglyceride and cholesterol Hospital Course Patient is a 42-year-old female with history of type 1 diabetes and hypertension as well as hemorrhagic stroke 1 year ago, patient presented with strokelike symptoms and was hospitalized to rule out acute stroke. Head CT showed only chronic small acute infarcts otherwise no acute findings, patient decided to leave AMA. Home Meds Active Scripts Tramadol HCl (Tramadol HCl) 50 Mg Tablet, 50 MG PO Q6 PRN for PAIN, #12 TAB Prov:KYMBERLY KLINE PA-C 07/07/18 Hydrocodone/Acetaminophen ([place] 10-325 Tablet) 1 Each Tablet, 1 TAB PO Q6H PRN for PAIN, #4 TAB Prov:SHANA MONTANEZ MD 05/29/18 Carvedilol* (Carvedilol*) 12.5 Mg Tablet, 12.5 MG PO BID, #60 TAB Prov:ADAMEJACKY V. GUIDE VISITOR 04/14/18 Insulin Lispro (Humalog Kwikpen U-100) 100 Unit/1 Ml Insuln.pen, 5 UNIT SQ TID WITH MEALS, #1 SYR Provide patient with #100 PEN needles,#100 Lancets,#100 test strips Sugar check frequency 3 times a day. Prov:ADAMEJACKY V. GUIDE VISITOR 04/14/18 Metformin Hcl* (Metformin Hcl*) 500 Mg Tablet, 1000 MG PO WITH BREAKFAST DINNE, #30 TAB Prov:ADAMEJACKY V. GUIDE VISITOR 04/14/18 Hydrocodone/Acetaminophen ([place] 10-325 Tablet) 1 Each Tablet, 1 TAB PO Q6H PRN for PAIN, #7 TAB Prov:JONATHAN VICTORIA MD 03/10/18 Reported Medications Insulin Glargine* (Lantus*) 100 Unit/Ml Soln, 40 UNIT SC DAILY, #1 VIAL 04/14/18 Zolpidem Tartrate* (Zolpidem Tartrate*) 10 Mg Tablet, 10 MG PO QHS PRN for INSOMNIA, #30 TAB 04/14/18 Fenofibrate, Micronized (Fenofibrate) 134 Mg Capsule, 134 MG PO DAILY, CAP 04/27/16 Atorvastatin Calcium (Atorvastatin Calcium) 10 Mg Tablet, 10 MG PO QHS, #30 TAB 04/27/16 Amlodipine Besylate* (Amlodipine Besylate*) 10 Mg Tablet, 10 MG PO DAILY, #30 TAB 04/27/16 Enalapril Maleate* (Enalapril Maleate*) 10 Mg Tablet, 10 MG PO DAILY, TAB 04/27/16 Primary Care Provider Rona Cervantes MD Time spent on discharge: < 30 minutes CLIFFORD SUTTON Oct 02, 2018 18:02
[2018-10-02] MEDS ORDERED: ATORVASTATIN 10 MG TAB PO SCH (21:00)
== END 2018-10-02 12:14 | disposition left against medical advice (07) | DRG 948 ==
LOC: E/R 21:26 → TEL 23:08
PROVIDERS: ADMIT Internal Medicine; ATTEND Internal Medicine
DX: R53.1 Weakness (principal); E10.65 Type 1 diabetes mellitus with hyperglycemia; E78.5 Hyperlipidemia, unspecified; I10 Essential (primary) hypertension; F17.210 Nicotine dependence, cigarettes, uncomplicated; Z79.4 Long term (current) use of insulin; Z79.82 Long term (current) use of aspirin
CPT/HCPCS: 36415; 70450; 70496; 70498; 71045; 80048; 80053; 80061; 80307; 81001; 82550; 82553; 82962; 83036; 83735; 84443; 84484; 85025; 85610; 85730; 93005; 93306; J1815; J2405; J3030; Q9967

== ENCOUNTER 2018-11-20 22:15 | Emergency (ER) | payer OTHER ==
[~2018-11-20] VITALS: Ht 154.9 cm; Wt 76.5 kg
[2018-11-20 22:26] VITALS: Ht 154.9 cm; Wt 76.5 kg
[2018-11-20 23:36] VITALS: BP 175/119; PULSE 118; RESP 18
== END 2018-11-21 00:05 | disposition left against medical advice (07) ==
LOC: E/R 22:15
DX: Z53.21 Procedure and treatment not carried out due to patient leaving prior to being seen by health care provider (principal)

== ENCOUNTER 2018-12-27 16:02 | Emergency (ER) | payer OTHER ==
[~2018-12-27] VITALS: Wt 80.0 kg
--- NOTE | 2018-12-27 18:10 | ERD ---
ER Documentation Chief Complaint Chief Complaint elevated bp HPI The patient is a 43-year-old female, presenting to the ER because of an limited blood pressure at home, complains of occipital frontal headache, had similar symptoms previously whenever her blood pressure is elevated is blurred vision, facial pain, neck pain, chest pain, dyspnea, abdominal pain, vomiting, dysuria, diarrhea. She normally takes atenolol 50 mg twice daily and clonidine 0.1 mg 3 times daily as needed and Norvasc 5 mg daily. She denies smoking/drinking Past medical history: Hypertension, CAD diabetes mellitus, dyslipidemia, history of hemorrhagic CVA but did not require any surgery Past surgical history: Appendectomy ROS All systems reviewed and are negative except as per history of present illness. Medications Home Meds Active Scripts Tramadol HCl (Tramadol HCl) 50 Mg Tablet, 50 MG PO Q6 PRN for PAIN, #12 TAB Prov:KYMBERLY KLINE PA-C 07/07/18 Carvedilol* (Carvedilol*) 12.5 Mg Tablet, 12.5 MG PO BID, #60 TAB Prov:JACKY ADAME V. HEADER SETUP OPERATOR 04/14/18 Insulin Lispro (Humalog Kwikpen U-100) 100 Unit/1 Ml Insuln.pen, 5 UNIT SQ TID WITH MEALS, #1 SYR Provide patient with #100 PEN needles,#100 Lancets,#100 test strips Sugar check frequency 3 times a day. Prov:JACKY ADAME V. HEADER SETUP OPERATOR 04/14/18 Metformin Hcl* (Metformin Hcl*) 500 Mg Tablet, 1000 MG PO WITH BREAKFAST DINNE, #30 TAB Prov:JACKY ADAME V. HEADER SETUP OPERATOR 04/14/18 Reported Medications Insulin Glargine* (Lantus*) 100 Unit/Ml Soln, 40 UNIT SC DAILY, #1 VIAL 04/14/18 Zolpidem Tartrate* (Zolpidem Tartrate*) 10 Mg Tablet, 10 MG PO QHS PRN for INSOMNIA, #30 TAB 04/14/18 Fenofibrate, Micronized (Fenofibrate) 134 Mg Capsule, 134 MG PO DAILY, CAP 04/27/16 Atorvastatin Calcium (Atorvastatin Calcium) 10 Mg Tablet, 10 MG PO QHS, #30 TAB 04/27/16 Amlodipine Besylate* (Amlodipine Besylate*) 10 Mg Tablet, 10 MG PO DAILY, #30 TAB 04/27/16 Enalapril Maleate* (Enalapril Maleate*) 10 Mg Tablet, 10 MG PO DAILY, TAB 04/27/16 Discontinued Scripts Hydrocodone/Acetaminophen ([place] 10-325 Tablet) 1 Each Tablet, 1 TAB PO Q6H PRN for PAIN, #4 TAB Prov:SHANA MONTANEZ MD 05/29/18 Hydrocodone/Acetaminophen ([place] 10-325 Tablet) 1 Each Tablet, 1 TAB PO Q6H PRN for PAIN, #7 TAB Prov:JONATHAN VICTORIA MD 03/10/18 Allergies Allergies: Coded Allergies: peanut (Unverified Allergy, Severe, warts, vomiting, throat closing, 12/28/18) lactase (Unverified Allergy, Mild, itchy, "small dots on whole body", 12/28/18) orange (Unverified Allergy, Mild, itchy, vomiting, 12/28/18) Fish Containing Products (Unverified Allergy, Unknown, 12/28/18) Has allergy to shellfish, but tuna is fine Penicillins (Unverified Allergy, Unknown, 12/28/18) ampicillin (Unverified Allergy, Unknown, rash, 12/28/18) ibuprofen (Unverified Allergy, Unknown, 12/28/18) PMhx/Soc History of Surgery: Yes (appendectomy) Anesthesia Reaction: No Hx Neurological Disorder: No Hx Respiratory Disorders: No Hx Cardiac Disorders: Yes (HTN) Hx Psychiatric Problems: No Hx Miscellaneous Medical Probl: No Hx Alcohol Use: No Hx Substance Use: No Hx Tobacco Use: Yes Physical Exam Vitals Vital Signs Date Temp Pulse Resp B/P (MAP) Pulse Ox O2 O2 Flow FiO2 Time Delivery Rate 12/27/18 85 16 156/99 98 Room Air 23:33 (118) 12/27/18 97.5 87 13 144/106 99 Room Air 22:47 (119) 12/27/18 97.8 99 18 156/104 99 Room Air 21:00 (121) 12/27/18 97.8 99 18 168/115 99 Room Air 19:00 (132) 12/27/18 97.8 122 18 186/120 99 16:08 (142) Physical Exam Const: No acute distress. Head: Atraumatic. Eyes: Normal Conjunctiva. ENT: Normal External Ears, Nose and Mouth. Neck: Full range of motion. No meningismus. Resp: Clear to auscultation bilaterally. Cardio: Regular tachycardic Abd: Soft, non distended, normal bowel sounds, non tender. Skin: No petechiae or rashes. Back: No midline or flank tenderness. Ext: No cyanosis, or edema. Neur: Awake and alert. No focal deficit Psych: Normal Mood and Affect. Result Diagram: 12/27/18194312/27/181943 Results 24 hrs Laboratory Tests Test 12/27/18 19:44 White Blood Count 12.3 10^3/ul Red Blood Count 4.52 10^6/ul Hemoglobin 15.3 g/dl Hematocrit 44.3 % Mean Corpuscular Volume 98.0 fl Mean Corpuscular Hemoglobin 33.8 pg Mean Corpuscular Hemoglobin Concent 34.5 g/dl Red Cell Distribution Width 12.3 % Platelet Count 439 10^3/UL Mean Platelet Volume 9.3 fl Immature Granulocytes % 0.300 % Neutrophils % 60.2 % Lymphocytes % 31.8 % Monocytes % 7.1 % Eosinophils % 0.2 % Basophils % 0.4 % Nucleated Red Blood Cells % 0.0 /100WBC Immature Granulocytes # 0.040 10^3/ul Neutrophils # 7.4 10^3/ul Lymphocytes # 3.9 10^3/ul Monocytes # 0.9 10^3/ul Eosinophils # 0.0 10^3/ul Basophils # 0.1 10^3/ul Nucleated Red Blood Cells # 0.0 10^3/ul Prothrombin Time 13.6 Sec Prothrombin Time Ratio 1.1 INR International Normalized Ratio 1.03 Activated Partial Thromboplast Time 26.4 Sec Sodium Level 137 mmol/L Potassium Level 4.1 mmol/L Chloride Level 101 mmol/L Carbon Dioxide Level 23 mmol/L Anion Gap 13 Blood Urea Nitrogen 16 mg/dl Creatinine 0.45 mg/dl Est Glomerular Filtrat Rate mL/min > 60 mL/min Glucose Level 252 mg/dl Calcium Level 10.4 mg/dl Current Medications Medications Dose Sig/Thuan Start Time Status Last (Trade) Ordered Route PRN Stop Time Admin Dose Reason Admin Labetalol 20 mg ONCE ONCE 12/27/18 DC 12/27/18 HCl IV 19:00 19:52 (Labetalol) 12/27/18 19:01 Morphine 2 mg ONCE STAT 12/27/18 DC 12/27/18 Sulfate IV 18:47 19:51 (morphine) 12/27/18 18:48 Ondansetron 4 mg ONCE STAT 12/27/18 DC 12/27/18 HCl (Zofran IV 18:47 19:51 Inj) 12/27/18 18:48 IV Flush 10 ml STK-MED 12/27/18 DC (NS 10 ml) ONCE .ROUTE 20:20 12/27/18 20:21 Sodium 100 ml @ ud STK-MED 12/27/18 DC Chloride ONCE .ROUTE 20:20 12/27/18 20:21 Iohexol 100 ml @ ud STK-MED 12/27/18 DC ONCE .ROUTE 20:20 12/27/18 20:21 Labetalol 20 mg ONCE ONCE 12/27/18 DC 12/27/18 HCl IV 22:00 22:43 (Labetalol) 12/27/18 22:01 Morphine 2 mg ONCE STAT 12/27/18 DC 12/27/18 Sulfate IV 21:56 22:43 (morphine) 12/27/18 21:59 Procedures/[place] [id number] Radiology Main Line: [phone] DIAGNOSTIC IMAGING REPORT Patient: ZACK ROCHE : 1975 Age: 43 Sex: F MR #: [id number] DOS: 12/27/18 1840 Ordering MD: DENZEL LINDER MD Location: E/R Room/Bed: PROCEDURE: CT Brain without contrast. CLINICAL INDICATION: Headaches TECHNIQUE: A CT of the brain was performed on a [employer] 64-slice CT scanner utilizing axial imaging from the skull base through the vertex without IV contrast. Multiplanar reformatted images were made. Images were reviewed on a PACS workstation. The CTDIvol is 37.59 mGy and the DLP is 634.23 mGycm. One or more the following dose reduction techniques were utilized: Automated exposure control, adjustment of mA/ or kV according to patient's size, or use of iterative reconstruction technique. DICOM images are available for review. COMPARISON: None FINDINGS: There is no intracranial hemorrhage, mass effect, or midline shift. The ventricles and sulci are normal in size and configuration. The density of the brain is normal. There is good milner-white matter differentiation throughout the cerebral hemispheres. The visualized brainstem and cerebellum are unremarkable. No extra-axial fluid collection is seen. The visualized paranasal sinuses and osseous structures are grossly unremarkable. IMPRESSION: No evidence of acute intracranial pathology. The brain is normal in appearance. RPTAT:HAGL Physician Alex Date Time Electronically viewed and signed by Physician Alex on 12/27/2018 21:04 RL/ CC: DENZEL LINDER MD [id number] [place] [id number] Radiology Main Line: [phone] DIAGNOSTIC IMAGING REPORT Patient: ZACK ROCHE : 1975 Age: 43 Sex: F MR #: [id number] DOS: 12/27/18 1840 Ordering MD: DENZEL LINDER MD Location: E/R Room/Bed: PROCEDURE: CTA head and neck CLINICAL INDICATION: Pain, R/O Aneurysm(with Contrast) TECHNIQUE: CTA imaging through the head and neck after the uneventful administration of 100 mL of Omnipaque 350 nonionic intravenous contrast material. Coronal and sagittal as well as maximal intensity projection reformations were obtained. 3-D images were made. The images were reviewed on a PACS workstation. The total CTDIvol is 17 mGy and the DLP is 650 mGy-cm. DICOM images are available. One or more of the following dose reduction techniques were utilized: 1.) Automated exposure control 2.) Adjustment of the mA +/- kV according to patient's size 3.) Use of iterative reconstruction technique. COMPARISON: Head CT performed the same day. FINDINGS: CTA HEAD Anterior circulation: No aneurysm or hemodynamically significant stenosis. Posterior circulation: No aneurysm or hemodynamically significant stenosis. CTA NECK Right carotid artery: No aneurysm, dissection, or flow-limiting stenosis. Left carotid artery: No aneurysm, dissection, or flow-limiting stenosis. Vertebral arteries: Codominant vertebral arteries. No aneurysm, dissection, or flow-limiting stenosis. The dural venous sinuses are unremarkable. Orbits: Unremarkable. Cervical spine: Mild degenerative changes. Lung apices: Unremarkable IMPRESSION: No CTA evidence of aneurysm, dissection, or flow limiting stenosis. RPTAT:HCLE edwardo Fraser Physician Date Time Electronically viewed and signed by edwardo Fraser Physician on 12/27/2018 21:29 cE/ CC: DENZEL LINDER MD [id number] EKG: Read by emergency physician Rate/Rhythm: Sinus tachycardia 116 beats/min QRS, ST, T-waves: No ST elevation, nonspecific T abnormality Impression: Abnormal EKG MEDICAL MAKING DECISION: The patient is a 43-year-old female, presenting with acute hypertensive urgency, was treated with labetalol 20 mg IV x2, morphine 2 mg IV x2 and Zofran 4 mg IV for nausea with good response of blood pressure improved and she remained asymptomatic, is stable for o/p follow-up The differential diagnoses considered include but are not limited to subarachnoid hemorrhage, occult trauma, CVA, meningitis, encephalitis, hypertension, tension, migraine, cluster, narcotic withdrawal, cervical spine disease. Departure Diagnosis: Primary Impression: Hypertensive urgency Condition: Good Comments I discussed the findings with the patient. I advised the patient to follow-up with the primary physician in the morning for evaluation and adjusting her medication, and return if any concern. Disclaimer: Inadvertent spelling and grammatical errors are likely due to EHR/dictation software use and do not reflect on the overall quality of patient care. Also, please note that the electronic time recorded on this note does not necessarily reflect the actual time of the patient encounter. DEZNEL LINDER MD December 27, 2018 18:10
[2018-12-27] MEDS ORDERED: ONDANSETRON 4 MG INJ IV STA (18:47)
[2018-12-27] MEDS ORDERED: morphine 2 MG INJ IV STA ×2 (18:47→21:56)
[2018-12-27] MEDS ORDERED: LABETALOL HCL 20MG INJ IV ONE ×2 (19:00→22:00)
[2018-12-27] MEDS ORDERED: SOD CHLORIDE 0.9% 100 ML ONE (20:20)
[2018-12-27] MEDS ORDERED: IOHEXOL 100 ML ONE (20:20)
[2018-12-27 23:33] VITALS: BP 156/99; PULSE 85; RESP 16
== END 2018-12-27 23:34 | disposition home or self-care (01) ==
LOC: E/R 16:02
DX: I16.0 Hypertensive urgency (principal); E11.9 Type 2 diabetes mellitus without complications; I10 Essential (primary) hypertension; I25.10 Atherosclerotic heart disease of native coronary artery without angina pectoris; Z79.4 Long term (current) use of insulin; Z86.73 Personal history of transient ischemic attack (TIA), and cerebral infarction without residual deficits; Z87.891 Personal history of nicotine dependence; Z91.010 Allergy to peanuts
CPT/HCPCS: 36415; 70450; 70496; 70498; 80048; 85025; 85610; 85730; 93005; 96374; 96375; 96376; J2270; J2405; Q9967; Z7502; Z7610

== ENCOUNTER 2019-03-02 15:51 | Emergency (ER) | payer OTHER ==
[~2019-03-02] VITALS: Ht 160 cm; Wt 80.0 kg
[~2019-03-02 15:51] MED LIST changes: +CIPR500T4 PO; -HYDR-3980 PO; +HYDR-4011 PO; +PHEN-537 PO
[2019-03-02 15:56] VITALS: Ht 160 cm; Wt 80.0 kg
--- NOTE | 2019-03-02 15:59 | EN ---
Date/Time of Note Date/Time of Note DATE: 03/02/19 TIME: 15:59 ER Progress Note Patient with abdominal pain and hypertension. Abdominal labs ordered. EMILIA URIOSTEGUI PA-C Mar 02, 2019 15:59
[2019-03-02] MEDS ORDERED: SOD CHLORIDE 0.9% 1,000 ML IV STA (17:34)
[2019-03-02] MEDS ORDERED: HYDROmorphONE 1 MG/ML SYG IV STA ×2 (17:34→19:02)
[2019-03-02] MEDS ORDERED: ONDANSETRON 4 MG INJ IV STA ×2 (17:34→19:02)
[2019-03-02] MEDS ORDERED: CIPROFLOXACIN 400MG/D5W 200 ML IVPB ONE (19:00)
[2019-03-02 20:30] VITALS: BP 167/108; PULSE 85; RESP 16
--- NOTE | 2019-03-03 10:45 | ERD ---
ER Documentation Chief Complaint Chief Complaint lower abdominal pain,dizziness HPI This is a 43 -year-old female presents to the emergency department complaining of severe lower abdominal pain that began roughly 12 hours prior to arrival. She stated it was sudden onset. It began in the right flank region. She indicated that it started to radiate to her lower abdomen. She became dizzy and lightheaded. She denies a headache. She had a tactile fever with shaking and chills. She also indicates she is had frequency urgency and dysuria. She denies any shortness of breath. She denies any hemoptysis hematemesis or melanotic stools. She is felt nauseous but has not experienced any emesis. No diarrhea. ROS All systems reviewed and are negative except as per history of present illness. Medications Home Meds Active Scripts Hydrocodone/Acetaminophen ([place] 5-325 Tablet) 1 Each Tablet, 1 TAB PO Q6H PRN for PAIN, #20 TAB Prov:DENZEL CLIFTON MD 03/02/19 Hydrocodone/Acetaminophen ([place] 5-325 Tablet) 1 Each Tablet, 1 TAB PO Q6H PRN for PAIN, #20 TAB Prov:ROCK PADRON MD 03/02/19 Phenazopyridine Hcl* (Pyridium*) 100 Mg Tab, 100 MG PO TID PRN for URINARY PAIN, #8 TAB Prov:ROCK PADRON MD 03/02/19 Ciprofloxacin Hcl* (Ciprofloxacin Hcl*) 500 Mg Tablet, 500 MG PO BID for 10 Days, TAB Prov:ROCK PADRON MD 03/02/19 Tramadol HCl (Tramadol HCl) 50 Mg Tablet, 50 MG PO Q6 PRN for PAIN, #12 TAB Prov:KYMBERLY KLINE PA-C 07/07/18 Carvedilol* (Carvedilol*) 12.5 Mg Tablet, 12.5 MG PO BID, #60 TAB Prov:JACKY ADAME NP 04/14/18 Insulin Lispro (Humalog Kwikpen U-100) 100 Unit/1 Ml Insuln.pen, 5 UNIT SQ TID WITH MEALS, #1 SYR Provide patient with #100 PEN needles,#100 Lancets,#100 test strips Sugar check frequency 3 times a day. Prov:JACKY ADAME NP 04/14/18 Metformin Hcl* (Metformin Hcl*) 500 Mg Tablet, 1000 MG PO WITH BREAKFAST DINNE, #30 TAB Prov:JACKY ADAME V. MARINE TOWER OPERATOR 04/14/18 Reported Medications Insulin Glargine* (Lantus*) 100 Unit/Ml Soln, 40 UNIT SC DAILY, #1 VIAL 04/14/18 Zolpidem Tartrate* (Zolpidem Tartrate*) 10 Mg Tablet, 10 MG PO QHS PRN for INSOMNIA, #30 TAB 04/14/18 Fenofibrate, Micronized (Fenofibrate) 134 Mg Capsule, 134 MG PO DAILY, CAP 04/27/16 Atorvastatin Calcium (Atorvastatin Calcium) 10 Mg Tablet, 10 MG PO QHS, #30 TAB 04/27/16 Amlodipine Besylate* (Amlodipine Besylate*) 10 Mg Tablet, 10 MG PO DAILY, #30 TAB 04/27/16 Enalapril Maleate* (Enalapril Maleate*) 10 Mg Tablet, 10 MG PO DAILY, TAB 04/27/16 Allergies Allergies: Coded Allergies: peanut (Unverified Allergy, Severe, warts, vomiting, throat closing, 12/28/18) lactase (Unverified Allergy, Mild, itchy, "small dots on whole body", 12/28/18) orange (Unverified Allergy, Mild, itchy, vomiting, 12/28/18) Fish Containing Products (Unverified Allergy, Unknown, 12/28/18) Has allergy to shellfish, but tuna is fine Penicillins (Unverified Allergy, Unknown, 12/28/18) ampicillin (Unverified Allergy, Unknown, rash, 12/28/18) ibuprofen (Unverified Allergy, Unknown, 12/28/18) PMhx/Soc History of Surgery: Yes (appendectomy) Anesthesia Reaction: No Hx Neurological Disorder: No Hx Respiratory Disorders: No Hx Cardiac Disorders: Yes (HTN) Hx Psychiatric Problems: No Hx Miscellaneous Medical Probl: No Hx Alcohol Use: No Hx Substance Use: No Hx Tobacco Use: Yes Smoking Status: Current every day smoker Physical Exam Vitals Vital Signs Date Temp Pulse Resp B/P (MAP) Pulse Ox O2 O2 Flow FiO2 Time Delivery Rate 03/02/19 85 16 167/108 100 Room Air 20:30 (127) 03/02/19 86 16 162/120 100 Room Air 19:37 (134) 03/02/19 98 20 161/112 98 Room Air 17:41 (128) 03/02/19 98.1 99 18 170/118 99 15:56 (135) Physical Exam Constitutional:Well-developed. Well-nourished. Patient tearful and appears to be in discomfort secondary to pain HEENT:Normocephalic. Atraumatic.Pupils were equal round reactive to light. Moist mucous membranes.No tonsillar exudates. Neck: No nuchal rigidity. No lymphadenopathy. No posterior cervical spine tenderness or step-offs. Respiratory: Not using accessory muscles of respiration.Lungs were clear to auscultation bilaterally. No rhonchi. No rales. No wheezing. Cardiovascular: Regular rate regular rhythm.No murmurs. No rubs were appreciated.S1, S2 normal. Distal pulses are palpable 2+ bilaterally. GI: Abdomen was soft. Right CVA tenderness. Tenderness in the left and the right lower quadrant. No tenderness specifically over McBurney's point. Psoas sign negative. Obturator sign negative.. Non Distended. No pulsatile abdominal masses or bruits. No rebound. No guarding. Bowel sounds were present and normal. Muscle skeletal: Full range of motion of both the upper and lower extremities bilaterally.Normal muscle tone.No assymetrical calf tenderness or swelling. Skin: No petechia, no purpura. No lesions on the palms or the soles of the feet. No maculopapular rash. NEURO: Patient was alert, awake, orientated x3.No facial droop. Gait observed and normal with no ataxia.Speech had regular rate and rhythm. No focal neurological deficits. Result Diagram: 03/02/19 1645 03/02/19 1645 Results 24 hrs Laboratory Tests Test 03/02/19 16:41 03/02/19 16:45 Urine Test NEGATIVE White Blood Count 10.3 10^3/ul Red Blood Count 3.89 10^6/ul Hemoglobin 13.4 g/dl Hematocrit 38.0 % Mean Corpuscular Volume 97.7 fl Mean Corpuscular Hemoglobin 34.4 pg Mean Corpuscular Hemoglobin Concent 35.3 g/dl Red Cell Distribution Width 13.0 % Platelet Count 486 10^3/UL Mean Platelet Volume 9.3 fl Immature Granulocytes % 0.400 % Neutrophils % 59.3 % Lymphocytes % 31.5 % Monocytes % 7.7 % Eosinophils % 0.6 % Basophils % 0.5 % Nucleated Red Blood Cells % 0.0 /100WBC Immature Granulocytes # 0.040 10^3/ul Neutrophils # 6.1 10^3/ul Lymphocytes # 3.3 10^3/ul Monocytes # 0.8 10^3/ul Eosinophils # 0.1 10^3/ul Basophils # 0.1 10^3/ul Nucleated Red Blood Cells # 0.0 10^3/ul Urine Color STRAW Urine Clarity SLIGHTLY CLOUDY Urine pH 6.0 Urine Specific [place] 1.033 Urine Ketones NEGATIVE mg/dL Urine Nitrite NEGATIVE mg/dL Urine Bilirubin NEGATIVE mg/dL Urine Urobilinogen NEGATIVE mg/dL Urine Leukocyte Esterase 3+ Yesi/ul Urine Microscopic RBC 13 /HPF Urine Microscopic WBC 51 /HPF Urine Squamous Epithelial Cells MODERATE /HPF Urine Bacteria FEW /HPF Urine Hemoglobin 1+ mg/dL Urine Glucose 3+ mg/dL Urine Total Protein 1+ mg/dl Sodium Level 135 mmol/L Potassium Level 3.8 mmol/L Chloride Level 103 mmol/L Carbon Dioxide Level 19 mmol/L Anion Gap 13 Blood Urea Nitrogen 10 mg/dl Creatinine 0.59 mg/dl Est Glomerular Filtrat Rate mL/min > 60 mL/min Glucose Level 395 mg/dl Calcium Level 9.9 mg/dl Total Bilirubin 0.3 mg/dl Direct Bilirubin 0.00 mg/dl Indirect Bilirubin 0.3 mg/dl Aspartate Amino Transf (AST/SGOT) 27 IU/L Alanine Aminotransferase (ALT/SGPT) 15 IU/L Alkaline Phosphatase 49 IU/L Total Protein 7.9 g/dl Albumin 4.5 g/dl Globulin 3.40 g/dl Albumin/Globulin Ratio 1.32 Lipase 247 U/L Current Medications Medications Dose Sig/Thuan Start Time Status Last (Trade) Ordered Route PRN Stop Time Admin Dose Reason Admin Sodium 1,000 ml @ Q1H STAT 03/02/19 DC 03/02/19 Chloride 1,000 mls/hr IV 17:34 03/02/19 17:56 18:33 1 mg ONCE STAT 03/02/19 DC 03/02/19 Hydromorphone IV 17:34 03/02/19 17:56 HCl 17:36 (Dilaudid) Ondansetron 4 mg ONCE STAT 03/02/19 DC 03/02/19 HCl (Zofran IV 17:34 03/02/19 17:56 Inj) 17:36 200 ml @ ONCE ONCE 03/02/19 DC 03/02/19 Ciprofloxacin 200 mls/hr IVPB 19:00 03/02/19 19:05 / Dextrose 19:59 1 mg ONCE STAT 03/02/19 DC 03/02/19 Hydromorphone IV 19:02 03/02/19 19:09 HCl 19:03 (Dilaudid) Ondansetron 4 mg ONCE STAT 03/02/19 DC 03/02/19 HCl (Zofran IV 19:02 03/02/19 19:09 Inj) 19:03 Procedures/MDM This patient presented to the emergency department with abdominal pain and was seen and evaluated by myself. My differential diagnosis included but was not limited to abdominal aortic aneurysm, appendicitis, pancreatitis, perforated peptic ulcer, perforated viscus, Boerhaaves syndrome or visceral pain such as diverticulitis, DKA, esophagitis, hepatitis or bowel obstruction. The patient was placed on a monitor car operator, continuous pulse oximetry, and IV access was established by nursing staff. The patient was in a significant amount discomfort was given intravenous morphine Zofran and IV fluids. Due to the patient's physical exam findings I did obtain a CT scan of the abdomen which was reviewed by the radiologist and indicate the following: Tiny nonobstructing right renal calculus. No obstructive uropathy or diverti culitis. Nonvisualization appendix. Enlarged fatty liver. 3.8 cm complex cystic mass left adnexa. This was present on prior study and is diminished in size in the interim. The patient was hyper glycemic without ketosis. She has a known history of insulin-dependent diabetes mellitus. There is no evidence of ketosis. She received IV fluids with improvement of her hyperglycemia. The patient had a urinary tract infection I did feel her symptoms are also exacerbated by pyelonephritis in addition to her nephrolithiasis. She received a dose of IV ciprofloxacin as she has a severe allergy to penicillins. She was now able to tolerate oral intake. Her pain is improved and I do feel she can be safely discharged home with antibiotics and anti-inflammatories. The patient was discharged home in fair condition. They were instructed to return to the emergency department at any time if there was any worsening of their condition. The patient stated they would follow up with their PCP in the next 24-48 hours to initiate a suitable medication regimen under the care of their PCP as well as to allow their PCP to monitor any drug reactions. The patient was discharged home with prescriptions after they gave informed consent to the new medication. They were also fully informed by myself on the adverse effects and adverse drug interactions in order to provide adequate safeguards to prevent possible adverse reactions to medications. Departure Diagnosis: Primary Impression: Nephrolithiasis Additional Impression: Pyelonephritis Condition: Fair Patient Instructions: Pyelonephritis, Female (Adult), Kidney Stone W/ Colic Referrals: JANINA WOODALL MD (PCP) ROCK PADRON MD Mar 03, 2019 10:45
== END 2019-03-02 20:30 | disposition home or self-care (01) ==
LOC: E/R 15:51
DX: N20.0 Calculus of kidney (principal); N12 Tubulo-interstitial nephritis, not specified as acute or chronic; R40.2142 Coma scale, eyes open, spontaneous, at arrival to emergency department; R40.2252 Coma scale, best verbal response, oriented, at arrival to emergency department; R40.2362 Coma scale, best motor response, obeys commands, at arrival to emergency department; I10 Essential (primary) hypertension; F17.210 Nicotine dependence, cigarettes, uncomplicated; Z91.010 Allergy to peanuts; Z79.4 Long term (current) use of insulin
CPT/HCPCS: 36415; 74176; 80053; 81001; 83690; 84703; 85025; 87086; 96374; 96375; 96376; J0744; J1170; J2405; J7030; Z7502